=== PATIENT | male | born 1960 | race African-American/Black ===

== ENCOUNTER 2017-01-23 12:49 | Emergency (ER) | payer MEDICARE ==
[2017-01-23] MEDS ORDERED: ONDANSETRON HCL 8 MG TABLET PO ONE (13:16)
--- NOTE | 2017-01-23 13:16 | ER Document Report ---
ED Medical Screen (RME) - General Stated Complaint: WEAKNESS Notes: 56 yo male n/v x 3 days. aggrevated with food. feeling weak today. no fever. no chest pain or shortness hx/o HTN, pacer/defib, IDDM PCM - Dr Carlos. TRAVEL OUTSIDE OF THE [place] IN LAST 30 DAYS: No - Related Data Allergies/Adverse Reactions: No Known Allergies Allergy (Verified 01/23/17 13:12) Past Medical History - Past Medical History Cardiac Medical History: Reports: Hx Atrial Fibrillation, Hx Congestive Heart Failure, Hx Hypercholesterolemia, Hx Hypertension, Hx Heart Murmur Denies: Hx Coronary Artery Disease, Hx Heart Attack, Hx Peripheral Vascular Disease, Hx Pulmonary Embolism Pulmonary Medical History: Reports: Hx Pneumonia - as a child, Hx Sleep Apnea - cpap Denies: Hx Asthma, Hx Bronchitis, Hx COPD, Hx Respiratory Failure, Hx Tuberculosis Neurological Medical History: Denies: Hx Cerebrovascular Accident, Hx Seizures Endocrine Medical History: Reports: Hx Diabetes Mellitus Type 1, Hx Diabetes Mellitus Type 2. Denies: Hx Graves' Disease, Hx Hyperthyroidism, Hx Hypothyroidism Renal/ Medical History: Denies: Hx Benign Prostatic Hyperplasia, Hx End Stage Renal Disease, Hx Kidney Stones, Hx Peritoneal Dialysis Malignancy Medical History: Denies Hx Leukemia, Denies Hx Lung Cancer GI Medical History: Denies: Hx Crohn's Disease, Hx Gastroesophageal Reflux Disease, Hx Hiatal Hernia, Hx Irritable Bowel, Hx Liver Failure, Hx Ulcer Musculoskeltal Medical History: Denies Hx Arthritis, Denies Hx Fibromyalgia, Denies Hx Multiple Sclerosis, Denies Hx Muscular Dystrophy Psychiatric Medical History: Denies: Hx Bipolar Disorder, Hx Dementia, Hx Depression, Hx Post Traumatic Stress Disorder, Hx Schizophrenia Traumatic Medical History: Denies: Hx Fractures Infectious Medical History: Denies: Hx HIV Past Surgical History: Reports: Hx Appendectomy, Hx Cardiac Surgery - defibrillator/pacemaker, valve closure as child, Hx Pacemaker - defibrillator. Denies: Hx Colostomy - Immunizations Hx Diphtheria, Pertussis, Tetanus Vaccination: Yes - 2012 Physical Exam - Vital signs Vitals: Temp Pulse Resp BP Pulse Ox 98.4 F 81 18 141/79 H 94 01/23/17 12:59 01/23/17 12:59 01/23/17 12:59 01/23/17 12:59 01/23/17 12:59 Course - Vital Signs Vital signs: Temp Pulse Resp BP Pulse Ox 98.4 F 81 18 141/79 H 94 01/23/17 12:59 01/23/17 12:59 01/23/17 12:59 01/23/17 12:59 01/23/17 12:59
[2017-01-23] MEDS ORDERED: METOCLOPRAMIDE HCL INJ/PF 10 MG/2 ML SDV IV ONE (16:26)
--- NOTE | 2017-01-23 16:31 | ER Document Report ---
ED GI/ - General Chief Complaint: Nausea/Vomiting Stated Complaint: WEAKNESS Notes: The patient is a 56-year-old male, past medical history CHF, IDDM, pacemaker, presents with 3 days of nausea, vomiting and diarrhea. He is also having mid epigastric pain and suprapubic pain. He says he is vomiting about 5 times a day is having difficulty keeping any liquids down. Denies hematemesis, fevers, hematochezia, urinary symptoms, chest pain, shortness of breath or rash. TRAVEL OUTSIDE OF THE [place] IN LAST 30 DAYS: No - Related Data Allergies/Adverse Reactions: No Known Allergies Allergy (Verified 01/23/17 13:12) Past Medical History - General Information source: Patient - Social History Smoking Status: Never Smoker Chew tobacco use (# tins/day): No Frequency of alcohol use: None Drug Abuse: None Family History: Hypertension Patient has suicidal ideation: No Patient has homicidal ideation: No - Past Medical History Cardiac Medical History: Reports: Hx Atrial Fibrillation, Hx Congestive Heart Failure, Hx Hypercholesterolemia, Hx Hypertension, Hx Heart Murmur Denies: Hx Coronary Artery Disease, Hx Heart Attack, Hx Peripheral Vascular Disease, Hx Pulmonary Embolism Pulmonary Medical History: Reports: Hx Pneumonia - as a child, Hx Sleep Apnea - cpap Denies: Hx Asthma, Hx Bronchitis, Hx COPD, Hx Respiratory Failure, Hx Tuberculosis Neurological Medical History: Denies: Hx Cerebrovascular Accident, Hx Seizures Endocrine Medical History: Reports: Hx Diabetes Mellitus Type 1, Hx Diabetes Mellitus Type 2. Denies: Hx Graves' Disease, Hx Hyperthyroidism, Hx Hypothyroidism Renal/ Medical History: Denies: Hx Benign Prostatic Hyperplasia, Hx End Stage Renal Disease, Hx Kidney Stones, Hx Peritoneal Dialysis Malignancy Medical History: Denies Hx Leukemia, Denies Hx Lung Cancer GI Medical History: Denies: Hx Crohn's Disease, Hx Gastroesophageal Reflux Disease, Hx Hiatal Hernia, Hx Irritable Bowel, Hx Liver Failure, Hx Ulcer Musculoskeltal Medical History: Denies Hx Arthritis, Denies Hx Fibromyalgia, Denies Hx Multiple Sclerosis, Denies Hx Muscular Dystrophy Psychiatric Medical History: Denies: Hx Bipolar Disorder, Hx Dementia, Hx Depression, Hx Post Traumatic Stress Disorder, Hx Schizophrenia Traumatic Medical History: Denies: Hx Fractures Infectious Medical History: Denies: Hx HIV Past Surgical History: Reports: Hx Appendectomy, Hx Cardiac Surgery - defibrillator/pacemaker, valve closure as child, Hx Pacemaker - defibrillator. Denies: Hx Colostomy - Immunizations Hx Diphtheria, Pertussis, Tetanus Vaccination: Yes - 2012 Hx Pneumococcal Vaccination: 10/08/12 Review of Systems - Review of Systems Notes: REVIEW OF SYSTEMS: CONSTITUTIONAL: -fevers, -chills EENT: -eye pain, -difficulty swallowing, -nasal congestion CARDIOVASCULAR:-chest pain, -syncope. RESPIRATORY: -cough, -SOB GASTROINTESTINAL: +abdominal pain, +nausea, +vomiting, +diarrhea GENITOURINARY: -dysuria, -hematuria MUSCULOSKELETAL: -back pain, -neck pain SKIN: -rash or skin lesions. HEMATOLOGIC: -easy bruising or bleeding. LYMPHATIC: -swollen, enlarged glands. NEUROLOGICAL: -altered mental status or loss of consciousness, -headache, - neurologic symptoms PSYCHIATRIC: -anxiety, -depression. ALL OTHER SYSTEMS REVIEWED AND NEGATIVE. Physical Exam - Vital signs Vitals: Temp Pulse Resp BP Pulse Ox 98.4 F 81 18 141/79 H 94 01/23/17 12:59 01/23/17 12:59 01/23/17 12:59 01/23/17 12:59 01/23/17 12:59 - Notes Notes: PHYSICAL EXAMINATION: GENERAL: Well-appearing, well-nourished and in no acute distress. HEAD: Atraumatic, normocephalic. EYES: Pupils equal round and reactive to light, extraocular movements intact, sclera anicteric, conjunctiva are normal. ENT: nares patent, oropharynx clear without exudates. Moist mucous membranes. NECK: Normal range of motion, supple without lymphadenopathy LUNGS: Breath sounds clear to auscultation bilaterally and equal. No wheezes rales or rhonchi. HEART: Regular rate and rhythm without murmurs ABDOMEN: Soft, mild tenderness over suprapubic and epigastric area, normoactive bowel sounds. No guarding, no rebound. No masses appreciated. EXTREMITIES: Normal range of motion, no pitting or edema. No cyanosis. NEUROLOGICAL: Cranial nerves grossly intact. Normal speech, normal gait. Normal sensory, motor, and reflex exams. PSYCH: Normal mood, normal affect. SKIN: Warm, Dry, normal turgor, no rashes or lesions noted. Course - Re-evaluation Re-evalutation: Patient is no longer feeling nauseous and is tolerating fluids. Labs showed mild SHU. Repeat abdominal exam is completely nontender. Will provide patient with Zofran and instruct him to drink fluids and follow-up with his primary care physician. Given strict return precautions and he understands. - Vital Signs Vital signs: Temp Pulse Resp BP Pulse Ox 98.4 F 81 18 141/79 H 94 01/23/17 12:59 01/23/17 12:59 01/23/17 12:59 01/23/17 12:59 01/23/17 12:59 - Laboratory Result Diagrams: 01/23/17 17:43 01/23/17 17:43 Laboratory results interpreted by me: 01/23/17 01/23/17 17:43 17:43 RBC 5.86 H RDW 15.0 H Sodium 134.7 L Potassium 5.3 H Chloride 91 L Anion Gap 20 H BUN 37 H Creatinine 1.33 H Est GFR (Non-Af Amer) 56 L Glucose 276 H Total Bilirubin 3.2 H Direct Bilirubin 0.5 H AST 15 L Discharge - Discharge Clinical Impression: Nausea vomiting and diarrhea Condition: Good Disposition: HOME, SELF-CARE Additional Instructions: VOMITING: Vomiting (or nausea without vomiting) can be caused by many other different problems. It can mean that something's wrong with the stomach, such as ulcers or inflammation or the intestinal tract, such as appendicitis. But it can also be a symptom of a problem that has nothing to do with the stomach or intestines. Vomiting is common with severe headaches, earaches, tonsillitis, and kidney infections, etc. We see it with pneumonia or heart attacks. Drugs can cause nausea and vomiting. Many abdominal problems cause vomiting; for example, gallstones, kidney stones, pancreatitis, and intestinal obstruction ( blocked bowels). In most cases, curing the vomiting depends on fixing the problem that caused it. For temporary relief, we may use an anti-nausea medicine. For home use, we can prescribe suppositories, chewable pills, pills that dissolve in the mouth, or liquid anti-nausea drugs. If the vomiting seems to be caused by a problem in the stomach, acid-suppressing drugs may be prescribed as well. It's important to avoid dehydration. Sip small amounts of clear liquids ( soft drinks, tea, broth, etc) . Try to take fluids frequently even if you are vomiting to prevent dehydration. Take increasing amounts of fluid and when liquids are being consumed successfully, advance to small amounts of bland food (toast, soups, mashed potatoes, etc.) until you are able to resume a regular diet. Avoid aspirin, tobacco, and alcohol. If the vomiting worsens, if the problem that's making you vomit worsens, or if there's evidence of bleeding in the stomach (such as black, tarry stool, or bloody or black vomit), you should return immediately. Also, return if abdominal pain worsens or becomes localized to one area or you develop high fever. Call your doctor if you aren't improved in 24 hours. DIARRHEA, NON-SPECIFIC: Diarrhea means frequent, watery stools. There are many causes. Any problem that keeps the intestinal tract from absorbing water from the stool can lead to diarrhea. A sudden new diarrhea problem is usually caused by a virus, food sensitivity, toxic bacteria, or drugs. In this case, we expect the problem to go away soon. Testing is done only if you seem seriously ill from the diarrhea. If you have chronic diarrhea, or diarrhea that keeps coming back, we need to find out why. Chronic diarrhea can be due to inflammation of the bowels such as Crohn's disease or ulcerative colitis, food sensitivity such as intolerance to lactose or wheat protein, irritable bowel syndrome, and other problems. If your diarrhea is a significant problem but it's not clear why you have it, we' ll refer you to a specialist for further testing. During an episode of diarrhea, drink small amounts (two to six ounces) of clear liquids (soft drinks, sport drinks, herb teas, broth, etc). Take fluids frequently to prevent dehydration. It's usually not a problem to take mild anti- diarrhea medication such as Kaopectate or Pepto-Bismol. As the diarrhea eases, advance to small amounts of bland food (mashed potato, toast) for 24 hours. Call the physician if blood appears in your vomit or stool, if vomiting lasts longer than 24 hours, if the abdominal pain worsens or becomes localized to one area, if you develop high fever, or if you become lightheaded and weak. VIRAL SYNDROME: The physician has diagnosed a viral infection. Viruses not only cause "colds," but can cause many different symptoms including generalized aching, fever, headache, cough, diarrhea, nausea, vomiting, and fatigue. The treatment, for the most part, is simply relief of symptoms. This means that antibiotics are usually not given. Rest, fluids, pain medications and, occasionally, medication for the specific symptoms that are most bothersome will be prescribed. Use good handwashing to avoid passing the virus to others. Shared toys should be cleaned with disinfectant. Clean the toilets, sinks, and counter surfaces in bathrooms. Launder clothing in hot water. Contact the physician if you develop any new or unusual symptoms such as severe headache, stiff neck, high fever, chest pain, productive cough, or shortness of breath. You should be rechecked if you don't see marked improvement within seven to 10 days. ANTINAUSEA MEDICATION: You have been given a medication to suppress nausea and vomiting. This type of medication can be given as a shot, pill, or suppository. It will usually last for many hours. Pills and shots usually last six to eight hours. For the typical illness, only one or two doses of the medication may be necessary. Mild lightheadedness may occur. This type of medicine can cause drowsiness. Do not drive or operate dangerous machinery while under its influence. Do not mix with alcohol. See your doctor at once if you have muscle spasms or tightness, or uncontrollable motions (particularly of the neck, mouth, or jaw). Persistent vomiting or severe lightheadedness should also be evaluated by the physician. FOLLOW-UP CARE: If you have been referred to a physician for follow-up care, call the physician s office for an appointment as you were instructed or within the next two days. If you experience worsening or a significant change in your symptoms, notify the physician immediately or return to the Emergency Department at any time for re-evaluation. Prescriptions: Ondansetron [Zofran Odt 4 mg Tablet] 1 - 2 tab PO Q4H PRN #15 tab.rapdis PRN Reason: For Nausea/Vomiting
[2017-01-23 18:03] LABS: ABSOLUTE BASOPHILS # (AUTO) 0.1 10^3/uL (0.0-0.2); ABSOLUTE LYMPHOCYTES (AUTO) 1.6 10^3/uL (0.5-4.7); ABSOLUTE MONOCYTES (AUTO) 0.6 10^3/uL (0.1-1.4); ABSOLUTE NEUT (AUTO) 5.3 10^3/uL (1.7-8.2); BASOPHILS % (AUTO) 0.7 % (0-2); EOSINOPHILS % (AUTO) 0.6 % (0-6); HEMATOCRIT 49.6 % (37.9-51.0); HEMOGLOBIN 16.5 g/dL (13.5-17.0); HGB HCT DIFFERENCE -0.1; LYMPHOCYTES % (AUTO) 20.8 % (13-45); MEAN CORPUSCULAR HEMOGLOBIN 28.2 pg (27.0-33.4); MEAN CORPUSCULAR HGB CONC 33.3 g/dL (32.0-36.0); MEAN CORPUSCULAR VOLUME 85 fl (80-97); MONOCYTES % (AUTO) 8.1 % (3-13); RED BLOOD COUNT 5.86 10^6/uL (4.35-5.55); SEGMENTED NEUTROPHILS % (AUTO) 69.8 % (42-78); WHITE BLOOD COUNT 7.7 10^3/uL (4.0-10.5)
[2017-01-23 18:24] LABS: ALANINE AMINOTRANSFERASE 27 U/L (21-72); ALBUMIN 4.7 g/dL (3.5-5.0); ALKALINE PHOSPHATASE 70 U/L (38-126); ASPARTATE AMINO TRANSFERASE 15 U/L (17-59); BILIRUBIN,DIRECT 0.5 mg/dL (0.0-0.4); BILIRUBIN,TOTAL 3.2 mg/dL (0.2-1.3); BLOOD UREA NITROGEN 37 mg/dL (7-20); CALCIUM 10.2 mg/dL (8.4-10.2); CHLORIDE 91 mmol/L (98-107); CREATINE KINASE 75 U/L (55-170); CREATININE RESULT 1.33 mg/dL (0.52-1.25); GLUCOSE 276 mg/dL (75-110); LIPASE 154.7 U/L (23-300); TOTAL PROTEIN 8.2 g/dL (6.3-8.2)
[2017-01-23 18:31] LABS: CARBON DIOXIDE 24 mmol/L (22-30); POTASSIUM 5.3 mmol/L (3.6-5.0); SODIUM 134.7 mmol/L (137-145)
[2017-01-23 18:32] LABS: ANION GAP 20 (5-19)
[2017-01-23 19:00] VITALS: BP 104/72
== END 2017-01-23 19:00 | disposition home or self-care (01) ==
LOC: ER 12:49
DX: R11.2 Nausea with vomiting, unspecified (principal); R19.7 Diarrhea, unspecified; I50.9 Heart failure, unspecified; I48.91 Unspecified atrial fibrillation; E78.00 Pure hypercholesterolemia, unspecified; I11.0 Hypertensive heart disease with heart failure; E11.9 Type 2 diabetes mellitus without complications; Z79.4 Long term (current) use of insulin; Z95.810 Presence of automatic (implantable) cardiac defibrillator
CPT/HCPCS: 99283; 96374; 36415; 82550; 83690; 85025; 80053; 84484; J2765; A9270; S0119

== ENCOUNTER 2017-01-26 10:08 | Emergency (ER) | payer MEDICARE ==
--- NOTE | 2017-01-26 10:19 | ER Document Report ---
ED Medical Screen (RME) - General Stated Complaint: VOMITING BLOOD, WEAKNESS Mode of Arrival: Wheelchair Information source: Patient, Relative - Notes: Patient presents with c/o vomiting. He was evaluated and treated here on Saturday. Patient reports vomiting is worse with blood noted. Patient treated for H. pylori by his primary care. Patient also reports diarrhea. Reports heart feels like it is racing when he vomits. Hx pacemaker, CHF. Patient is actively vomiting I have greeted and performed a rapid initial assessment of this patient. A comprehensive ED assessment and evaluation of the patient, analysis of test results and completion of the medical decision making process will be conducted by additional ED providers. TRAVEL OUTSIDE OF THE [place] IN LAST 30 DAYS: No - Related Data Allergies/Adverse Reactions: No Known Allergies Allergy (Verified 01/26/17 10:20) Past Medical History - Past Medical History Cardiac Medical History: Reports: Hx Atrial Fibrillation, Hx Congestive Heart Failure, Hx Hypercholesterolemia, Hx Hypertension, Hx Heart Murmur Denies: Hx Coronary Artery Disease, Hx Heart Attack, Hx Peripheral Vascular Disease, Hx Pulmonary Embolism Pulmonary Medical History: Reports: Hx Pneumonia - as a child, Hx Sleep Apnea - cpap Denies: Hx Asthma, Hx Bronchitis, Hx COPD, Hx Respiratory Failure, Hx Tuberculosis Neurological Medical History: Denies: Hx Cerebrovascular Accident, Hx Seizures Endocrine Medical History: Reports: Hx Diabetes Mellitus Type 1, Hx Diabetes Mellitus Type 2. Denies: Hx Graves' Disease, Hx Hyperthyroidism, Hx Hypothyroidism Renal/ Medical History: Denies: Hx Benign Prostatic Hyperplasia, Hx End Stage Renal Disease, Hx Kidney Stones, Hx Peritoneal Dialysis Malignancy Medical History: Denies Hx Leukemia, Denies Hx Lung Cancer GI Medical History: Denies: Hx Crohn's Disease, Hx Gastroesophageal Reflux Disease, Hx Hiatal Hernia, Hx Irritable Bowel, Hx Liver Failure, Hx Ulcer Musculoskeltal Medical History: Denies Hx Arthritis, Denies Hx Fibromyalgia, Denies Hx Multiple Sclerosis, Denies Hx Muscular Dystrophy Psychiatric Medical History: Denies: Hx Bipolar Disorder, Hx Dementia, Hx Depression, Hx Post Traumatic Stress Disorder, Hx Schizophrenia Traumatic Medical History: Denies: Hx Fractures Infectious Medical History: Denies: Hx HIV Past Surgical History: Reports: Hx Appendectomy, Hx Cardiac Surgery - defibrillator/pacemaker, valve closure as child, Hx Pacemaker - defibrillator. Denies: Hx Colostomy - Immunizations Hx Diphtheria, Pertussis, Tetanus Vaccination: Yes - 2013 Physical Exam - Vital signs Vitals: Temp Pulse Resp BP Pulse Ox 98.7 F 93 20 120/86 H 100 01/26/17 10:15 01/26/17 10:15 01/26/17 10:15 01/26/17 10:15 01/26/17 10:15 Course - Vital Signs Vital signs: Temp Pulse Resp BP Pulse Ox 98.7 F 93 20 120/86 H 100 01/26/17 10:15 01/26/17 10:15 01/26/17 10:15 01/26/17 10:15 01/26/17 10:15
[2017-01-26] MEDS ORDERED: ONDANSETRON HCL INJ/PF 4 MG/2 ML SDV IV ONE (10:20)
[2017-01-26] MEDS ORDERED: FAMOTIDINE INJ/PF 20 MG/2 ML SDV IV ONE (11:15)
[2017-01-26 11:44] LABS: ABSOLUTE LYMPHOCYTES (AUTO) 1.6 10^3/uL (0.5-4.7); ABSOLUTE MONOCYTES (AUTO) 0.6 10^3/uL (0.1-1.4); ABSOLUTE NEUT (AUTO) 3.7 10^3/uL (1.7-8.2); BASOPHILS % (AUTO) 0.6 % (0-2); EOSINOPHILS % (AUTO) 0.5 % (0-6); HEMATOCRIT 48.3 % (37.9-51.0); HEMOGLOBIN 16.6 g/dL (13.5-17.0); HGB HCT DIFFERENCE 1.5; MEAN CORPUSCULAR HEMOGLOBIN 28.7 pg (27.0-33.4); MEAN CORPUSCULAR HGB CONC 34.3 g/dL (32.0-36.0); MEAN CORPUSCULAR VOLUME 84 fl (80-97); MONOCYTES % (AUTO) 9.4 % (3-13); RED BLOOD COUNT 5.77 10^6/uL (4.35-5.55); RED CELL DISTRIBUTION WIDTH 15.1 % (11.5-14.0); SEGMENTED NEUTROPHILS % (AUTO) 62.5 % (42-78); WHITE BLOOD COUNT 5.9 10^3/uL (4.0-10.5)
[2017-01-26 11:46] LABS: VENOUS BLOOD BASE EXCESS 4.2 mmol/L; VENOUS BLOOD HCO3 27.3 mmol/L (20-32); VENOUS BLOOD PCO2 36.5 mmHg (35-63); VENOUS BLOOD PH 7.49 (7.30-7.42)
[2017-01-26 12:06] LABS: ALANINE AMINOTRANSFERASE 19 U/L (21-72); ALBUMIN 4.4 g/dL (3.5-5.0); ALKALINE PHOSPHATASE 69 U/L (38-126); ASPARTATE AMINO TRANSFERASE 16 U/L (17-59); BILIRUBIN,DIRECT 0.6 mg/dL (0.0-0.4); BILIRUBIN,TOTAL 3.4 mg/dL (0.2-1.3); BLOOD UREA NITROGEN 33 mg/dL (7-20); CALCIUM 9.5 mg/dL (8.4-10.2); CARBON DIOXIDE 24 mmol/L (22-30); CHLORIDE 90 mmol/L (98-107); CREATININE RESULT 1.44 mg/dL (0.52-1.25); GLUCOSE 232 mg/dL (75-110); POTASSIUM 3.7 mmol/L (3.6-5.0); SODIUM 134.5 mmol/L (137-145); TOTAL PROTEIN 7.9 g/dL (6.3-8.2)
[2017-01-26 12:08] LABS: ANION GAP 21 (5-19)
[2017-01-26] MEDS ORDERED: NORMAL SALINE 1000 ML 1,000 ML IV ONE ×2 (12:33)
[2017-01-26] MEDS ORDERED: METOCLOPRAMIDE HCL INJ/PF 10 MG/2 ML SDV IV ONE (13:12)
--- NOTE | 2017-01-26 14:14 | ER Document Report ---
ED General - General Chief Complaint: Vomiting Stated Complaint: VOMITING BLOOD, WEAKNESS Mode of Arrival: Wheelchair TRAVEL OUTSIDE OF THE [place] IN LAST 30 DAYS: No - HPI Patient complains to provider of: nausea vomiting abdominal pain Notes: Patient presents for nausea vomiting epigastric abdominal pain. States ongoing for last few days. Patient was recently seen here in ER with no acute findings and discharged home. Patient states he been followed up with his primary care physician and now is currently being treated for possible H. pylori infection with amoxicillin states taken a few doses of antibiotics initially was feeling better now is feeling worse. Patient denies any fevers. Patient states testing performed was blood testing states she is currently waiting for his urease breath test. - Related Data Allergies/Adverse Reactions: No Known Allergies Allergy (Verified 01/26/17 10:20) Home Medications: Current Home Medications Dulaglutide [Trulicity] 0.75 mg SQ ASDIR PRN 01/26/17 [History] Insulin Glargine,Hum.rec.anlog [Toujeo Solostar] 30 unit SQ DAILY 01/26/17 [ History] Linagliptin [Tradjenta] 5 mg PO DAILY 01/26/17 [History] Past Medical History - General Information source: Patient, Relative - - Social History Smoking Status: Never Smoker Chew tobacco use (# tins/day): No Frequency of alcohol use: None Drug Abuse: None Family History: Hypertension - Past Medical History Cardiac Medical History: Reports: Hx Atrial Fibrillation, Hx Congestive Heart Failure, Hx Hypercholesterolemia, Hx Hypertension, Hx Heart Murmur Denies: Hx Coronary Artery Disease, Hx Heart Attack, Hx Peripheral Vascular Disease, Hx Pulmonary Embolism Pulmonary Medical History: Reports: Hx Pneumonia - as a child, Hx Sleep Apnea - cpap Denies: Hx Asthma, Hx Bronchitis, Hx COPD, Hx Respiratory Failure, Hx Tuberculosis Neurological Medical History: Denies: Hx Cerebrovascular Accident, Hx Seizures Endocrine Medical History: Reports: Hx Diabetes Mellitus Type 1, Hx Diabetes Mellitus Type 2. Denies: Hx Graves' Disease, Hx Hyperthyroidism, Hx Hypothyroidism Renal/ Medical History: Denies: Hx Benign Prostatic Hyperplasia, Hx End Stage Renal Disease, Hx Kidney Stones, Hx Peritoneal Dialysis Malignancy Medical History: Denies Hx Leukemia, Denies Hx Lung Cancer GI Medical History: Denies: Hx Crohn's Disease, Hx Gastroesophageal Reflux Disease, Hx Hiatal Hernia, Hx Irritable Bowel, Hx Liver Failure, Hx Ulcer Musculoskeltal Medical History: Denies Hx Arthritis, Denies Hx Fibromyalgia, Denies Hx Multiple Sclerosis, Denies Hx Muscular Dystrophy Psychiatric Medical History: Denies: Hx Bipolar Disorder, Hx Dementia, Hx Depression, Hx Post Traumatic Stress Disorder, Hx Schizophrenia Traumatic Medical History: Denies: Hx Fractures Infectious Medical History: Denies: Hx HIV Past Surgical History: Reports: Hx Appendectomy, Hx Cardiac Surgery - defibrillator/pacemaker, valve closure as child, Hx Pacemaker - defibrillator. Denies: Hx Colostomy - Immunizations Hx Diphtheria, Pertussis, Tetanus Vaccination: Yes - 2012 Hx Pneumococcal Vaccination: 10/08/12 Review of Systems - Review of Systems Constitutional: No symptoms reported EENT: No symptoms reported Cardiovascular: No symptoms reported Respiratory: No symptoms reported Gastrointestinal: Abdominal pain, Nausea, Vomiting Genitourinary: No symptoms reported Male Genitourinary: No symptoms reported Musculoskeletal: No symptoms reported Skin: No symptoms reported Hematologic/Lymphatic: No symptoms reported Neurological/Psychological: No symptoms reported -: Yes All other systems reviewed and negative Physical Exam - Vital signs Vitals: Temp Pulse Resp BP Pulse Ox 98.7 F 93 20 120/86 H 100 01/26/17 10:15 01/26/17 10:15 01/26/17 10:15 01/26/17 10:15 01/26/17 10:15 Interpretation: Normal - General General appearance: Appears well, Alert - HEENT Head: Normocephalic, Atraumatic Eyes: Normal Pupils: PERRL - Respiratory Respiratory status: No respiratory distress Chest status: Nontender Breath sounds: Normal Chest palpation: Normal - Cardiovascular Rhythm: Regular Heart sounds: Normal auscultation Murmur: No - Abdominal Inspection: Normal Distension: No distension Bowel sounds: Normal Tenderness: Nontender Organomegaly: No organomegaly - Back Back: Normal, Nontender - Extremities General upper extremity: Normal inspection, Nontender, Normal color, Normal ROM , Normal temperature General lower extremity: Normal inspection, Nontender, Normal color, Normal ROM , Normal temperature, Normal weight bearing. No: Genia's sign - Neurological Neuro grossly intact: Yes Cognition: Normal Orientation: AAOx4 [place] Coma Scale Eye Opening: Spontaneous Paul Coma Scale Verbal: Oriented [place] Coma Scale Motor: Obeys Commands Paul Coma Scale Total: 15 Speech: Normal Motor strength normal: LUE, RUE, LLE, RLE Sensory: Normal - Psychological Associated symptoms: Normal affect, Normal mood - Skin Skin Temperature: Warm Skin Moisture: Dry Skin Color: Normal Course - Re-evaluation Re-evalutation: 01/26/17 16:10 Because the patient is chronically elevated bilirubin and abdominal pain patient underwent a ultrasound showing gallbladder sludge no signs of acute cholecystitis. After Reglan patient's filling much better and agrees a be discharged home. Encouraged patient to continue her liquid diet for the next 12 -24 hours. The patient presents with abdominal pain without signs of peritonitis or other life-threatening or serious etiology. The patient appears stable for discharge and has been instructed to return immediately if the symptoms worsen in any way, or in 8-12hr if not improved for re-evaluation. The patient has been instructed to return if the symptoms worsen or change in any way.. - Vital Signs Vital signs: Temp Pulse Resp BP Pulse Ox 98.7 F 93 18 114/80 100 01/26/17 10:15 01/26/17 10:15 01/26/17 14:01 01/26/17 14:00 01/26/17 14:01 - Laboratory Result Diagrams: 01/26/17 11:12 01/26/17 11:12 Laboratory results interpreted by me: 01/26/17 01/26/17 01/26/17 10:58 11:12 11:12 RBC 5.77 H RDW 15.1 H VBG pH Sodium 134.5 L Chloride 90 L Anion Gap 21 H BUN 33 H Creatinine 1.44 H Est GFR (Non-Af Amer) 51 L Glucose 232 H POC Glucose 218 H Total Bilirubin 3.4 H Direct Bilirubin 0.6 H AST 16 L ALT 19 L Urine Glucose (UA) Urine Ketones Ur Leukocyte Esterase 01/26/17 01/26/17 11:12 14:01 RBC RDW VBG pH 7.49 H Sodium Chloride Anion Gap BUN Creatinine Est GFR (Non-Af Amer) Glucose POC Glucose Total Bilirubin Direct Bilirubin AST ALT Urine Glucose (UA) 150 H Urine Ketones 80 H Ur Leukocyte Esterase TRACE H Discharge - Discharge Clinical Impression: Nausea vomiting and diarrhea, Sludge in gallbladder Condition: Good Disposition: HOME, SELF-CARE Instructions: Reglan (OM), Vomiting (OM), Gallbladder Disease (OM) Additional Instructions: Your ultrasound shows sludge within your gallbladder. With your history diabetes I believe that her nausea vomiting may be coming from possible early gastroparesis or possibly due to the gallbladder sludge that we see on the ultrasound. I would highly recommend a clear liquid diet for the next 12-24 hours if you do feel like eating food however recommend foods high in starch such as crackers and toast and avoid food that has any kind of fat grease or oil including chicken soup Take medication as prescribed I would highly recommend following up with your doctor on Saturday I would hold off on taking any further amoxicillin or antibiotics Please return your stool sample to the outpatient laboratory for testing Prescriptions: Metoclopramide HCl [Reglan] 5 mg PO Q6 #30 tablet Forms: Follow-Up Laboratory Testing Referrals: GOLDEN ANDREWS MD [Primary Care Provider] - Follow up in 3-5 days
[2017-01-26 14:30] LABS: APPEARANCE,URINE SLIGHTLY-CLOUDY; BILIRUBIN,URINE NEGATIVE (NEGATIVE); GLUCOSE, URINE 150 mg/dL (NEGATIVE); KETONES,URINE 80 mg/dL (NEGATIVE); LEUKOCYTE ESTERASE,URINE TRACE (NEGATIVE); NITRITE,URINE NEGATIVE (NEGATIVE); PROTEIN,URINE NEGATIVE (NEGATIVE); URINE SPECIFIC GRAVITY 1.025; UROBILINOGEN,URINE NEGATIVE mg/dL (<2.0)
[2017-01-26 14:38] VITALS: BP 114/80
--- NOTE | 2017-01-26 22:20 | EKG REPORT ---
SEVERITY:- ABNORMAL ECG - ATRIAL-SENSED VENTRICULAR-PACED RHYTHM : Confirmed by: Nimesh Jay MD 26-Jan-2017 17:33:02
== END 2017-01-26 14:38 | disposition home or self-care (01) ==
LOC: ER 10:08
DX: R53.1 Weakness (principal); Z79.899 Other long term (current) drug therapy; R11.2 Nausea with vomiting, unspecified; R10.9 Unspecified abdominal pain
CPT/HCPCS: 93005; 99284; 36415; 82962; 83605; 83690; 85025; 80053; 81001; 82803; 76705; 93976; 93010; J2765; J2405; J7030; S0028; 87205; 87493; 89055

== ENCOUNTER 2018-03-27 07:55 | Emergency (ER) | payer MEDICARE ==
[2018-03-27] MEDS ORDERED: ONDANSETRON HCL INJ/PF 4 MG/2 ML SDV IV ONE ×2 (08:00→08:36)
[2018-03-27] MEDS ORDERED: MECLIZINE HCL 25 MG TABLET PO ONE (08:09)
[2018-03-27 08:18] LABS: ABSOLUTE BASOPHILS # (AUTO) 0.1 10^3/uL (0.0-0.2); ABSOLUTE EOSINOPHILS # (AUTO) 0.1 10^3/uL (0.0-0.6); ABSOLUTE LYMPHOCYTES (AUTO) 1.7 10^3/uL (0.5-4.7); ABSOLUTE MONOCYTES (AUTO) 0.5 10^3/uL (0.1-1.4); ABSOLUTE NEUT (AUTO) 4.5 10^3/uL (1.7-8.2); BASOPHILS % (AUTO) 0.8 % (0-2); EOSINOPHILS % (AUTO) 1.6 % (0-6); HEMATOCRIT 43.7 % (37.9-51.0); HEMOGLOBIN 14.6 g/dL (13.5-17.0); LYMPHOCYTES % (AUTO) 24.6 % (13-45); MEAN CORPUSCULAR HEMOGLOBIN 28.6 pg (27.0-33.4); MEAN CORPUSCULAR HGB CONC 33.3 g/dL (32.0-36.0); MEAN CORPUSCULAR VOLUME 86 fl (80-97); MONOCYTES % (AUTO) 7.7 % (3-13); PLATELET COUNT 217 10^3/uL (150-450); RED BLOOD COUNT 5.08 10^6/uL (4.35-5.55); RED CELL DISTRIBUTION WIDTH 14.8 % (11.5-14.0); SEGMENTED NEUTROPHILS % (AUTO) 65.3 % (42-78); TOTAL CELLS COUNTED % (AUTO) 100 %; WHITE BLOOD COUNT 6.9 10^3/uL (4.0-10.5)
[2018-03-27] MEDS ORDERED: METOCLOPRAMIDE HCL INJ/PF 10 MG/2 ML SDV IV ONE (08:36)
[2018-03-27 08:38] LABS: ALANINE AMINOTRANSFERASE 22 U/L (21-72); ALBUMIN 4.3 g/dL (3.5-5.0); ALKALINE PHOSPHATASE 84 U/L (38-126); ANION GAP 15 (5-19); ASPARTATE AMINO TRANSFERASE 14 U/L (17-59); BILIRUBIN,DIRECT 0.3 mg/dL (0.0-0.4); BILIRUBIN,TOTAL 1.3 mg/dL (0.2-1.3); BLOOD UREA NITROGEN 14 mg/dL (7-20); CALCIUM 9.1 mg/dL (8.4-10.2); CARBON DIOXIDE 29 mmol/L (22-30); CHLORIDE 101 mmol/L (98-107); CREATINE KINASE 115 U/L (55-170); SODIUM 145.1 mmol/L (137-145); TOTAL PROTEIN 7.4 g/dL (6.3-8.2)
[2018-03-27 08:46] LABS: GLUCOSE 477 mg/dL (75-110)
[2018-03-27 08:47] LABS: CREATINE KINASE MB 0.66 ng/mL (<4.55)
[2018-03-27 08:49] LABS: TROPONIN I < 0.012 ng/mL
[2018-03-27] MEDS ORDERED: INSULIN REG, HUMAN 100 UNIT/ML 3 ML VIAL (PYX) SUBCUT ONE (08:59)
--- NOTE | 2018-03-27 09:00 | ER Document Report ---
ED General - General Chief Complaint: Nausea/Vomiting/Diarrhea Stated Complaint: DIZZINESS Time Seen by Provider: 03/27/18 07:59 Mode of Arrival: Ambulatory Information source: Patient Notes: 57-year-old male history of diabetes pacemaker who has had an ear symptoms for the past few weeks presents with complaints of sudden episode of dizziness lightheadedness nausea vomiting. Patient notes over the past couple weeks now his balance has been a little off, he notes a pressure sensation in his right ear. He was seen by his primary care physician and was supposed to receive medications for this but it was never called in. Patient denies any fevers or chills notes symptoms worsen with movement of his head TRAVEL OUTSIDE OF THE [place] IN LAST 30 DAYS: No - HPI Onset: Other Onset/Duration: Sudden Quality of pain: Pressure Severity: Mild Pain Level: 1 Associated symptoms: Other Exacerbated by: Denies Relieved by: Denies Similar symptoms previously: Yes Recently seen / treated by doctor: Yes - Related Data Allergies/Adverse Reactions: No Known Allergies Allergy (Verified 01/26/17 10:20) Past Medical History - Social History Smoking Status: Never Smoker Cigarette use (# per day): No Chew tobacco use (# tins/day): No Smoking Education Provided: No Family History: Hypertension - Past Medical History Cardiac Medical History: Reports: Hx Atrial Fibrillation, Hx Congestive Heart Failure, Hx Hypercholesterolemia, Hx Hypertension, Hx Heart Murmur Denies: Hx Coronary Artery Disease, Hx Heart Attack, Hx Peripheral Vascular Disease, Hx Pulmonary Embolism Pulmonary Medical History: Reports: Hx Pneumonia - as a child, Hx Sleep Apnea - cpap Denies: Hx Asthma, Hx Bronchitis, Hx COPD, Hx Respiratory Failure, Hx Tuberculosis Neurological Medical History: Denies: Hx Cerebrovascular Accident, Hx Seizures Endocrine Medical History: Reports: Hx Diabetes Mellitus Type 1, Hx Diabetes Mellitus Type 2. Denies: Hx Graves' Disease, Hx Hyperthyroidism, Hx Hypothyroidism Renal/ Medical History: Denies: Hx Benign Prostatic Hyperplasia, Hx End Stage Renal Disease, Hx Kidney Stones, Hx Peritoneal Dialysis Malignancy Medical History: Denies Hx Leukemia, Denies Hx Lung Cancer GI Medical History: Denies: Hx Crohn's Disease, Hx Gastroesophageal Reflux Disease, Hx Hiatal Hernia, Hx Irritable Bowel, Hx Liver Failure, Hx Pancreatitis , Hx Ulcer Musculoskeltal Medical History: Denies Hx Arthritis, Denies Hx Fibromyalgia, Denies Hx Multiple Sclerosis, Denies Hx Muscular Dystrophy Psychiatric Medical History: Denies: Hx Bipolar Disorder, Hx Dementia, Hx Depression, Hx Post Traumatic Stress Disorder, Hx Schizophrenia Traumatic Medical History: Denies: Hx Fractures Infectious Medical History: Denies: Hx HIV Past Surgical History: Reports: Hx Appendectomy, Hx Cardiac Surgery - defibrillator/pacemaker, valve closure as child, Hx Pacemaker - defibrillator. Denies: Hx Colostomy - Immunizations Hx Diphtheria, Pertussis, Tetanus Vaccination: Yes - 2012 Hx Pneumococcal Vaccination: 10/08/12 Review of Systems - Review of Systems Notes: REVIEW OF SYSTEMS: CONSTITUTIONAL : Denies fever, chills, or sweats. Denies recent illness. EENT: Admits to right ear pressure CARDIOVASCULAR: Denies chest pain. Denies palpitations or racing or irregular heart beat. Denies ankle edema. RESPIRATORY: Denies cough, cold, or chest congestion. Denies shortness of breath, difficulty breathing, or wheezing. GASTROINTESTINAL: Denies abdominal pain or distention. Denies nausea, vomiting , or diarrhea. Denies blood in vomitus, stools, or per rectum. Denies black, tarry stools. Denies constipation. GENITOURINARY: Denies difficulty urinating, painful urination, burning, frequency, blood in urine, or discharge. MUSCULOSKELETAL: Denies back or neck pain or stiffness. Denies joint pain or swelling. SKIN: Denies rash, lesions or sores. HEMATOLOGIC : Denies easy bruising or bleeding. LYMPHATIC: Denies swollen, enlarged glands. NEUROLOGICAL: Admits to dizziness PSYCHIATRIC: Denies anxiety or stress. Denies depression, suicidal ideation, or homicidal ideation. ALL OTHER SYSTEMS REVIEWED AND NEGATIVE. Dictation was performed using [employer] voice recognition software PHYSICAL EXAMINATION: GENERAL: Well-appearing, well-nourished and in no acute distress. HEAD: Atraumatic, normocephalic. EYES: Pupils equal round and reactive to light, extraocular movements intact, sclera anicteric, conjunctiva are normal. ENT: Nares patent, oropharynx clear without exudates. Moist mucous membranes. Left TM is normal in appearance the right TM is bulging erythematous loss of light reflex NECK: Normal range of motion, supple without lymphadenopathy LUNGS: Breath sounds clear to auscultation bilaterally and equal. No wheezes rales or rhonchi. HEART: Regular rate and rhythm without murmurs ABDOMEN: Soft, nontender, nondistended abdomen. No guarding, no rebound. No masses appreciated. Musculoskeletal: Normal range of motion, no pitting or edema. No cyanosis. NEUROLOGICAL: Cranial nerves grossly intact. Normal speech, normal gait. Normal sensory, motor exams vertigo reproducible PSYCH: Normal mood, normal affect. SKIN: Warm, Dry, normal turgor, no rashes or lesions noted. Physical Exam - Vital signs Vitals: Resp 17 03/27/18 07:59 Course - Re-evaluation Re-evalutation: 03/27/18 09:48 Patient's blood sugars noted to be 477, this is because he has not taken his medications yet he states he normal takes at 10 AM, otherwise the vertigo symptoms appear to be related to an otitis media, the canal is well-appearing patient's symptoms have improved with Antivert, we will recheck his blood sugar but otherwise he is stable 03/27/18 16:04 Patient notes symptoms have improved significantly blood sugars now 300 After performing a Medical Screening Examination, I estimate there is LOW risk for INTRACRANIAL HEMORRHAGE, ISCHEMIC CVA, MALIGNANT DYSRHYTHMIA, ACUTE CORONARY SYNDROME, MENINGITIS, PULMONARY EMBOLISM, or SEPSIS thus I consider the discharge disposition reasonable. I have reevaluated this patient multiple times and no significant life threatening changes are noted. The patient and I have discussed the diagnosis and risks, and we agree with discharging home with close follow-up with the understanding that symptoms and presentations can change. We also discussed returning to the Emergency Department immediately if new or worsening symptoms occur. We have discussed the symptoms which are most concerning (e.g., changing or worsening pain, weakness, vomiting, fever) that necessitate immediate return. - Vital Signs Vital signs: Temp Pulse Resp BP Pulse Ox 98.3 F 19 114/86 H 100 03/27/18 10:31 03/27/18 10:31 03/27/18 10:31 03/27/18 10:31 - Laboratory Result Diagrams: 03/27/18 07:30 03/27/18 07:30 Laboratory results interpreted by me: 03/27/18 03/27/18 03/27/18 07:30 07:30 09:37 RDW 14.8 H Sodium 145.1 H Glucose 477 H* POC Glucose AST 14 L Urine Glucose (UA) >=500 H Urine Ketones 20 H 03/27/18 10:33 RDW Sodium Glucose POC Glucose 310 H AST Urine Glucose (UA) Urine Ketones Discharge - Discharge Clinical Impression: Vertigo Otitis media Qualifiers: Otitis media type: unspecified Chronicity: acute Qualified Code(s): H66.90 - Otitis media, unspecified, unspecified ear Condition: Stable Disposition: HOME, SELF-CARE Instructions: Vertigo ([facility]) Prescriptions: Amoxicillin Trihydrate [Amoxil 875 mg Tablet] 1 tab PO BID #20 tablet Meclizine HCl [Antivert 25 mg Tablet] 25 mg PO TID PRN #21 tablet PRN Reason: Referrals: GOLDEN ANDREWS MD [Primary Care Provider] - Follow up as needed
[2018-03-27] MEDS: NORMAL SALINE 1000 ML 1,000 ML IV PRN ×2 (09:02→09:03)
[2018-03-27 09:17] LABS: VENOUS BLOOD BASE EXCESS 1.1 mmol/L; VENOUS BLOOD HCO3 27.7 mmol/L (20-32); VENOUS BLOOD PCO2 51.5 mmHg (35-63); VENOUS BLOOD PH 7.35 (7.30-7.42)
[2018-03-27 10:17] LABS: APPEARANCE,URINE CLEAR; BILIRUBIN,URINE NEGATIVE (NEGATIVE); COLOR,URINE STRAW; GLUCOSE, URINE >=500 mg/dL (NEGATIVE); KETONES,URINE 20 mg/dL (NEGATIVE); LEUKOCYTE ESTERASE,URINE NEGATIVE (NEGATIVE); NITRITE,URINE NEGATIVE (NEGATIVE); PROTEIN,URINE NEGATIVE (NEGATIVE); URINE SPECIFIC GRAVITY 1.031; UROBILINOGEN,URINE NEGATIVE mg/dL (<2.0)
[2018-03-27 11:09] VITALS: BP 114/86
--- NOTE | 2018-03-27 13:43 | EKG REPORT ---
SEVERITY:- ABNORMAL ECG - ATRIAL-SENSED VENTRICULAR-PACED RHYTHM : Confirmed by: Nimesh Jay MD 27-Mar-2018 13:43:02
== END 2018-03-27 11:01 | disposition home or self-care (01) ==
LOC: ER 07:55
DX: H66.90 Otitis media, unspecified, unspecified ear (principal); R42 Dizziness and giddiness; R11.2 Nausea with vomiting, unspecified; E11.9 Type 2 diabetes mellitus without complications; I10 Essential (primary) hypertension; I48.91 Unspecified atrial fibrillation; Z95.810 Presence of automatic (implantable) cardiac defibrillator
CPT/HCPCS: 93005; 99284; 96361; 96374; 36415; 82553; 82962; 82550; 85025; 80053; 81001; 84484; 82803; 93010; A9270 ×2; J2765; J7030; J1815

== ENCOUNTER 2018-06-01 10:28 | Inpatient (IN) | payer MEDICARE, MEDICAID ==
[2018-06-01] MEDS ORDERED: NORMAL SALINE 500 ML IV ONE (11:00)
[2018-06-01] MEDS ORDERED: ONDANSETRON 4 MG TAB.RAPDIS PO ONE (11:00)
[2018-06-01 11:34] LABS: ABSOLUTE BASOPHILS # (AUTO) 0.1 10^3/uL (0.0-0.2); ABSOLUTE LYMPHOCYTES (AUTO) 1.6 10^3/uL (0.5-4.7); ABSOLUTE MONOCYTES (AUTO) 0.4 10^3/uL (0.1-1.4); BASOPHILS % (AUTO) 0.8 % (0-2); EOSINOPHILS % (AUTO) 0.3 % (0-6); HEMATOCRIT 51.3 % (37.9-51.0); HEMOGLOBIN 17.4 g/dL (13.5-17.0); LYMPHOCYTES % (AUTO) 19.4 % (13-45); MEAN CORPUSCULAR HEMOGLOBIN 29.2 pg (27.0-33.4); MEAN CORPUSCULAR VOLUME 86 fl (80-97); MONOCYTES % (AUTO) 4.4 % (3-13); PLATELET COUNT 205 10^3/uL (150-450); RED BLOOD COUNT 5.97 10^6/uL (4.35-5.55); RED CELL DISTRIBUTION WIDTH 14.3 % (11.5-14.0); SEGMENTED NEUTROPHILS % (AUTO) 75.1 % (42-78); TOTAL CELLS COUNTED % (AUTO) 100 %
--- NOTE | 2018-06-01 11:38 | ER Document Report ---
ED General - General Chief Complaint: Nausea/Vomiting Stated Complaint: VOMITING Time Seen by Provider: 06/01/18 10:59 TRAVEL OUTSIDE OF THE [place] IN LAST 30 DAYS: No - HPI Notes: Patient is a 58-year-old male with a past medical history significant for insulin-dependent diabetic, HTN, CHF, arrhythmia with pacemaker and defibrillator placement who presents to the ED complaining of abdominal cramping , nausea, vomiting, diarrhea 2-3 days. Patient states that he is starting to feel weak and has not been eating or drinking much since the onset of symptoms. Patient states he has been in DKA before and believes that this may be another episode of that. Patient states that he does have a pacemaker defibrillator in place and has noticed a flutter once today, but has no active chest pain or shortness of breath. Patient states that he is still urinating normally and having normal bowel movements. Denies any drug allergies. Denies any headache, fever, neck pain, changes in vision/speech/mentation/hearing, URI , sore throat, chest pain, syncope, cough, shortness of breath, wheeze, dyspnea , urinary retention, dysuria, hematuria, back pain, loss of control of bowel or bladder, numbness/tingling, or rash. - Related Data Allergies/Adverse Reactions: No Known Allergies Allergy (Verified 06/01/18 10:30) Past Medical History - Social History Smoking Status: Never Smoker Chew tobacco use (# tins/day): No Frequency of alcohol use: None Drug Abuse: None Family History: Hypertension Patient has suicidal ideation: No Patient has homicidal ideation: No - Past Medical History Cardiac Medical History: Reports: Hx Atrial Fibrillation, Hx Congestive Heart Failure, Hx Hypercholesterolemia, Hx Hypertension, Hx Heart Murmur Denies: Hx Coronary Artery Disease, Hx Heart Attack, Hx Peripheral Vascular Disease, Hx Pulmonary Embolism Pulmonary Medical History: Reports: Hx Pneumonia - as a child, Hx Sleep Apnea - cpap Denies: Hx Asthma, Hx Bronchitis, Hx COPD, Hx Respiratory Failure, Hx Tuberculosis Neurological Medical History: Denies: Hx Cerebrovascular Accident, Hx Seizures Endocrine Medical History: Reports: Hx Diabetes Mellitus Type 1, Hx Diabetes Mellitus Type 2. Denies: Hx Graves' Disease, Hx Hyperthyroidism, Hx Hypothyroidism Renal/ Medical History: Denies: Hx Benign Prostatic Hyperplasia, Hx End Stage Renal Disease, Hx Kidney Stones, Hx Peritoneal Dialysis Malignancy Medical History: Denies Hx Leukemia, Denies Hx Lung Cancer GI Medical History: Denies: Hx Crohn's Disease, Hx Gastroesophageal Reflux Disease, Hx Hiatal Hernia, Hx Irritable Bowel, Hx Liver Failure, Hx Pancreatitis , Hx Ulcer Musculoskeletal Medical History: Denies Hx Arthritis, Denies Hx Fibromyalgia, Denies Hx Multiple Sclerosis, Denies Hx Muscular Dystrophy Psychiatric Medical History: Denies: Hx Bipolar Disorder, Hx Dementia, Hx Depression, Hx Post Traumatic Stress Disorder, Hx Schizophrenia Traumatic Medical History: Denies: Hx Fractures Infectious Medical History: Denies: Hx HIV Past Surgical History: Reports: Hx Appendectomy, Hx Cardiac Surgery - defibrillator/pacemaker, valve closure as child, Hx Pacemaker - defibrillator. Denies: Hx Colostomy - Immunizations Hx Diphtheria, Pertussis, Tetanus Vaccination: Yes - 2012 Hx Pneumococcal Vaccination: 10/08/12 Review of Systems - Review of Systems -: Yes All other systems reviewed and negative Physical Exam - Vital signs Vitals: Temp Pulse Resp BP Pulse Ox 98.6 F 90 16 134/85 H 100 06/01/18 10:43 06/01/18 10:43 06/01/18 10:43 06/01/18 10:43 06/01/18 10:43 - Notes Notes: PHYSICAL EXAMINATION: GENERAL: No acute distress. Answers questions appropriately. Appears weak HEAD: Atraumatic, normocephalic. EYES: Pupils equal round and reactive to light, extraocular movements intact, sclera anicteric, conjunctiva are normal. ENT: Nares patent and without discharge. oropharynx clear without exudates. No tonsilar hypertrophy or erythema. Moist mucous membranes. NECK: Normal range of motion, supple without lymphadenopathy LUNGS: Breath sounds clear to auscultation bilaterally and equal. No wheezes rales or rhonchi. HEART: Regular rate and rhythm without murmurs, rubs, gallops. ABDOMEN: Soft, nondistended abdomen. No guarding, no rebound. No masses appreciated. Normal bowel sounds present. No CVA tenderness bilaterally. + mild generalized tenderness. Musculoskeletal: FROM to passive/active. Strength 5+/5. Genia neg b/l. Extremities: No cyanosis, clubbing, or edema b/l. Peripheral pulses 2+. Capillary refill less than 3 seconds. NEUROLOGICAL: Normal speech, normal gait. PSYCH: Normal mood, normal affect. SKIN: Warm, Dry, normal turgor, no rashes or lesions noted. Course - Re-evaluation Re-evalutation: 06/01/18 13:02 Patient is found with a pH of 7.3 (right on the border of low), bicarb of 18.7, and anion gap of 21 with elevated glucose in the presence of abd pain, n/v/d. + urine ketones and is currently in early DKA. Patient was given fluids and insulin will be given IV per protocol. Reviewed with Dr. Cortez and Dr. Benson who accepted pt to IMCU. - Vital Signs Vital signs: Temp Pulse Resp BP Pulse Ox 98.6 F 90 16 134/85 H 100 06/01/18 10:43 06/01/18 10:43 06/01/18 10:43 06/01/18 10:43 06/01/18 10:43 - Laboratory Result Diagrams: 06/01/18 11:15 06/01/18 11:15 Laboratory results interpreted by me: 06/01/18 06/01/18 06/01/18 11:15 11:15 11:37 RBC 5.97 H Hgb 17.4 H Hct 51.3 H RDW 14.3 H VBG HCO3 18.7 L Potassium 5.1 H Chloride 95 L Anion Gap 21 H BUN 33 H Creatinine 1.31 H Est GFR (Non-Af Amer) 57 L Glucose 361 H Total Bilirubin 2.7 H Direct Bilirubin 0.5 H AST 13 L Creatine Kinase 53 L Total Protein 8.4 H Urine Glucose (UA) Urine Ketones 06/01/18 11:37 RBC Hgb Hct RDW VBG HCO3 Potassium Chloride Anion Gap BUN Creatinine Est GFR (Non-Af Amer) Glucose Total Bilirubin Direct Bilirubin AST Creatine Kinase Total Protein Urine Glucose (UA) >=500 H Urine Ketones 80 H Discharge - Discharge Clinical Impression: DKA (diabetic ketoacidoses) Qualifiers: Diabetes mellitus type: type 1 Diabetes mellitus complication detail: without coma Qualified Code(s): E10.10 - Type 1 diabetes mellitus with ketoacidosis without coma Condition: Stable Disposition: ADMITTED INPATIENT Admitting Provider: Hospitalist - Dr. Benson Unit Admitted: [facility] Referrals: GOLDEN ANDREWS MD [Primary Care Provider] - Follow up as needed
[2018-06-01 11:41] LABS: INTERNATIONAL RATION (INR) 1.09; PROTHROMBIN TIME 14.7 SEC (11.4-15.4)
[2018-06-01 12:01] LABS: ALANINE AMINOTRANSFERASE 21 U/L (21-72); ALBUMIN 4.8 g/dL (3.5-5.0); ALKALINE PHOSPHATASE 74 U/L (38-126); ASPARTATE AMINO TRANSFERASE 13 U/L (17-59); BILIRUBIN,DIRECT 0.5 mg/dL (0.0-0.4); BILIRUBIN,TOTAL 2.7 mg/dL (0.2-1.3); BLOOD UREA NITROGEN 33 mg/dL (7-20); CALCIUM 9.6 mg/dL (8.4-10.2); CREATINE KINASE 53 U/L (55-170); GLUCOSE 361 mg/dL (75-110); POTASSIUM 5.1 mmol/L (3.6-5.0); TOTAL PROTEIN 8.4 g/dL (6.3-8.2)
[2018-06-01 12:04] LABS: VENOUS BLOOD BASE EXCESS -7.1 mmol/L; VENOUS BLOOD HCO3 18.7 mmol/L (20-32); VENOUS BLOOD PH 7.3 (7.30-7.42)
[2018-06-01 12:06] LABS: CARBON DIOXIDE 22 mmol/L (22-30); CHLORIDE 95 mmol/L (98-107); SODIUM 138.1 mmol/L (137-145)
[2018-06-01 12:11] LABS: ANION GAP 21 (5-19); CREATINE KINASE MB 0.65 ng/mL (<4.55)
[2018-06-01 12:14] LABS: TROPONIN I < 0.012 ng/mL
[2018-06-01 12:24] LABS: APPEARANCE,URINE CLEAR; BILIRUBIN,URINE NEGATIVE (NEGATIVE); COLOR,URINE YELLOW; GLUCOSE, URINE >=500 mg/dL (NEGATIVE); KETONES,URINE 80 mg/dL (NEGATIVE); LEUKOCYTE ESTERASE,URINE NEGATIVE (NEGATIVE); NITRITE,URINE NEGATIVE (NEGATIVE); PROTEIN,URINE NEGATIVE (NEGATIVE); URINE SPECIFIC GRAVITY 1.028; UROBILINOGEN,URINE NEGATIVE mg/dL (<2.0)
[2018-06-01] MEDS ORDERED: NORMAL SALINE 1000 ML 1,000 ML IV ONE ×3 (12:35→21:30)
--- NOTE | 2018-06-01 12:56 | RADIOLOGY REPORT (SQ) ---
EXAM DESCRIPTION: CHEST SINGLE VIEW COMPLETED DATE/TIME: 06/01/2018 12:34 pm REASON FOR STUDY: palpitation COMPARISON: 2015. NUMBER OF VIEWS: One view. TECHNIQUE: Single frontal radiographic view of the chest acquired. LIMITATIONS: None. FINDINGS: LUNGS AND PLEURA: No opacities, masses or pneumothorax. No pleural effusion. MEDIASTINUM AND HILAR STRUCTURES: Stable contours with chronic central vascular prominence. HEART AND VASCULAR STRUCTURES: Stable heart size. Previous CABG. BONES: No acute findings. HARDWARE: Left pacer. OTHER: No other significant finding. IMPRESSION: Stable chest. No acute cardiopulmonary disease suggested. TECHNICAL DOCUMENTATION: JOB ID: [id number] [email or web address]- All Rights Reserved Reading location - IP/workstation name: [email or web address]
[2018-06-01] MEDS ORDERED: DEXTROSE 40% GEL 15 GM TUBE PO PRN ×2 (13:00)
[2018-06-01] MEDS ORDERED: NORMAL SALINE 100 ML with INSULIN REGULAR, HUMAN 100 UNIT IV PRN ×2 (13:00)
[2018-06-01] MEDS ORDERED: GLUCAGON,HUMAN RECOMB 1 MG INJ IM PRN (13:00)
[2018-06-01] MEDS ORDERED: DEXTROSE 50%-WATER 25 GM/50 ML DISP.SYRIN IV PRN ×2 (13:00)
[2018-06-01] MEDS ORDERED: INSULIN REG, HUMAN 100 UNIT/ML 3 ML VIAL (PYX) ONE (14:00)
[2018-06-01] MEDS ORDERED: IPRATROPIUM/ALBUTEROL 0.5-2.5 MG/3 ML AMPUL NEB PRN (14:02)
[2018-06-01] MEDS ORDERED: ACETAMINOPHEN 325 MG TABLET PO PRN (14:02)
[2018-06-01] MEDS: NORMAL SALINE 1000 ML 1,000 ML IV PRN ×3 (14:32→22:48)
[2018-06-01] MEDS ORDERED: ENOXAPARIN SODIUM INJ 40 MG/0.4 ML DISP.SYRIN SUBCUT ONE (15:00)
[2018-06-01] MEDS ORDERED: PROMETHAZINE HCL INJ 25 MG/1 ML VIAL IV PRN (15:40)
[2018-06-01 15:44] LABS: BLOOD UREA NITROGEN 32 mg/dL (7-20); CALCIUM 8.6 mg/dL (8.4-10.2); GLUCOSE 253 mg/dL (75-110); POTASSIUM 4.3 mmol/L (3.6-5.0)
[2018-06-01 15:50] LABS: CARBON DIOXIDE 19 mmol/L (22-30); CHLORIDE 101 mmol/L (98-107); SODIUM 140.8 mmol/L (137-145)
[2018-06-01 15:56] LABS: ANION GAP 21 (5-19)
--- NOTE | 2018-06-01 16:35 | PDOC H&P ---
History of Present Illness Admission Date/PCP: 06/01/18 13:28 GOLDEN ANDREWS Patient complains of: This gentleman presents to the emergency room with complaints of abdominal pain nausea and vomiting as well as diarrhea for the last 2-3 days History of Present Illness: JOSEFA MCKEON is a 58 year old male This gentleman presents to the emergency room with complaints of abdominal pain nausea and vomiting as well as diarrhea for the last 2-3 days. This is also associated with weakness. Was found to have an elevated blood sugar in the emergency room with mild acidosis. Patient is a known diabetic with history of noncompliance. He says he hates needles and it appears he is noncompliant with his insulin regimen. His blood sugar was found to be elevated at 361 with a CO2 of 22 and anion gap of 21. Patient feels better after receiving some fluids and is currently receiving insulin drip. Past Medical History Cardiac Medical History: Reports: Atrial Fibrillation, Congestive Heart Failure , Hyperlipidema, Hypertension, Heart Murmur Denies: Coronary Artery Disease, Myocardial Infarction, Peripheral Vascular Disease, Pulmonary Embolism Pulmonary Medical History: Reports: Pneumonia - as a child, Sleep Apnea - cpap Denies: Asthma, Bronchitis, Chronic Obstructive Pulmonary Disease (COPD), Respiratory Failure, Tuberculosis Neurological Medical History: Denies: Seizures Endocrine Medical History: Reports: Diabetes Mellitus Type 1, Diabetes Mellitus Type 2 Denies: Hyperthyroidism, Hypothyroidism Renal/ Medical History: Denies: End Stage Renal Disease Malignancy Medical History: Denies: Breast Cancer, Cervical Cancer, Leukemia, Lung Cancer, Ovarian Cancer GI Medical History: Denies: Crohn's Disease, Gastroesophageal Reflux Disease, Hiatal Hernia Musculoskeltal Medical History: Denies: Arthritis, Fibromyalgia Psychiatric Medical History: Denies: Bipolar Disorder, Dementia, Depression, Post Traumatic Stress Disorder Hematology: Denies: Anemia, Hemophilia, Sickle Cell Disease Infectious Medical History: Denies: HIV Past Surgical History Past Surgical History: Reports: Appendectomy, Pacemaker - defibrillator Denies: Colostomy Social History Information Source: Patient Smoking Status: Never Smoker Frequency of Alcohol Use: None Hx Recreational Drug Use: No Hx Prescription Drug Abuse: No - Advance Directive Resuscitation Status: Full Code Family History Family History: Hypertension Parental Family History Reviewed: Yes Children Family History Reviewed: Yes Sibling(s) Family History Reviewed.: Yes Medication/Allergy Home Medications: Apixaban [Eliquis 5 mg Tablet] 5 mg PO Q12 06/01/18 Atorvastatin Calcium [Lipitor 20 mg Tablet] 20 mg PO QHS 06/01/18 Carvedilol [Coreg 12.5 mg Tablet] 12.5 mg PO BID 06/01/18 Dofetilide [Tikosyn 500 Mcg Capsule] 500 mcg PO Q12 06/01/18 Dulaglutide [Trulicity] 1.5 mg SQ WE 06/01/18 Furosemide [Lasix 40 mg Tablet] 40 mg PO BID 06/01/18 Insulin Glargine,Hum.rec.anlog [Toujeo Solostar] 25 units SQ DAILY 06/01/18 Linagliptin [Tradjenta] 5 mg PO DAILY 06/01/18 Lisinopril [Zestril] 10 mg PO DAILY 06/01/18 Metformin HCl [Glucophage] 1,000 mg PO BID 06/01/18 Allergies/Adverse Reactions: No Known Allergies Allergy (Verified 06/01/18 10:30) Review of Systems All systems: reviewed and no additional remarkable complaints except as stated Physical Exam Vital Signs: Temp Pulse Resp BP Pulse Ox 98.6 F 90 20 129/74 H 98 06/01/18 10:43 06/01/18 10:43 06/01/18 14:01 06/01/18 14:01 06/01/18 14:01 General appearance: PRESENT: no acute distress, well-developed, well-nourished Head exam: PRESENT: atraumatic, normocephalic Eye exam: PRESENT: conjunctiva pink, EOMI, PERRLA. ABSENT: scleral icterus Ear exam: PRESENT: normal external ear exam Mouth exam: PRESENT: dry mucosa, tongue midline Neck exam: ABSENT: carotid bruit, JVD, lymphadenopathy, thyromegaly Respiratory exam: PRESENT: clear to auscultation asiya. ABSENT: rales, rhonchi, wheezes Cardiovascular exam: PRESENT: RRR. ABSENT: diastolic murmur, rubs, systolic murmur Pulses: PRESENT: normal dorsalis pedis pul Vascular exam: PRESENT: normal capillary refill GI/Abdominal exam: PRESENT: normal bowel sounds, soft. ABSENT: distended, guarding, mass, organolmegaly, rebound, tenderness Rectal exam: PRESENT: deferred Extremities exam: PRESENT: full ROM. ABSENT: calf tenderness, clubbing, pedal edema Neurological exam: PRESENT: alert, awake, oriented to person, oriented to place , oriented to time, oriented to situation, CN II-XII grossly intact. ABSENT: motor sensory deficit Psychiatric exam: PRESENT: appropriate affect, normal mood. ABSENT: homicidal ideation, suicidal ideation Skin exam: PRESENT: dry, intact, warm. ABSENT: cyanosis, rash Results Laboratory Results: 06/01/18 11:15 06/01/18 15:09 MCV 86 fl (80-97) 06/01/18 11:15 MCH 29.2 pg (27.0-33.4) 06/01/18 11:15 MCHC 34.0 g/dL (32.0-36.0) 06/01/18 11:15 RDW 14.3 % (11.5-14.0) H 06/01/18 11:15 Seg Neutrophils % 75.1 % (42-78) 06/01/18 11:15 Lymphocytes % 19.4 % (13-45) 06/01/18 11:15 Monocytes % 4.4 % (3-13) 06/01/18 11:15 Eosinophils % 0.3 % (0-6) 06/01/18 11:15 Basophils % 0.8 % (0-2) 06/01/18 11:15 Absolute Neutrophils 6.0 10^3/uL (1.7-8.2) 06/01/18 11:15 Absolute Lymphocytes 1.6 10^3/uL (0.5-4.7) 06/01/18 11:15 Absolute Monocytes 0.4 10^3/uL (0.1-1.4) 06/01/18 11:15 Absolute Eosinophils 0.0 10^3/uL (0.0-0.6) 06/01/18 11:15 Absolute Basophils 0.1 10^3/uL (0.0-0.2) 06/01/18 11:15 VBG pH 7.30 (7.30-7.42) 06/01/18 11:37 VBG pCO2 39.0 mmHg (35-63) 06/01/18 11:37 VBG HCO3 18.7 mmol/L (20-32) L 06/01/18 11:37 VBG Base Excess -7.1 mmol/L 06/01/18 11:37 Chloride 101 mmol/L (98-107) 06/01/18 15:09 Carbon Dioxide 19 mmol/L (22-30) L 06/01/18 15:09 Anion Gap 21 (5-19) H 06/01/18 15:09 Est GFR ( Amer) > 60 (>60) 06/01/18 15:09 Est GFR (Non-Af Amer) > 60 (>60) 06/01/18 15:09 Glucose 253 mg/dL (75-110) H 06/01/18 15:09 Calcium 8.6 mg/dL (8.4-10.2) 06/01/18 15:09 Total Bilirubin 2.7 mg/dL (0.2-1.3) H 06/01/18 11:15 AST 13 U/L (17-59) L 06/01/18 11:15 ALT 21 U/L (21-72) 06/01/18 11:15 Alkaline Phosphatase 74 U/L (38-126) 06/01/18 11:15 Total Protein 8.4 g/dL (6.3-8.2) H 06/01/18 11:15 Albumin 4.8 g/dL (3.5-5.0) 06/01/18 11:15 Lipase 69.7 U/L (23-300) 06/01/18 11:15 Urine Color YELLOW 06/01/18 11:37 Urine Appearance CLEAR 06/01/18 11:37 Urine pH 5.0 (5.0-9.0) 06/01/18 11:37 Ur Specific [place] 1.028 06/01/18 11:37 Urine Protein NEGATIVE mg/dL (NEGATIVE) 06/01/18 11:37 Urine Glucose (UA) >=500 mg/dL (NEGATIVE) H 06/01/18 11:37 Urine Ketones 80 mg/dL (NEGATIVE) H 06/01/18 11:37 Urine Blood NEGATIVE (NEGATIVE) 06/01/18 11:37 Urine Nitrite NEGATIVE (NEGATIVE) 06/01/18 11:37 Ur Leukocyte Esterase NEGATIVE (NEGATIVE) 06/01/18 11:37 Urine WBC (Auto) 3 /HPF 06/01/18 11:37 Urine RBC (Auto) 1 /HPF 06/01/18 11:37 06/01/18 06/01/18 11:15 11:15 Creatine Kinase 53 L CK-MB (CK-2) 0.65 Troponin I < 0.012 Impressions: Chest X-Ray 06/01/18 11:32 IMPRESSION: Stable chest. No acute cardiopulmonary disease suggested. Assessment & Plan - Diagnosis (1) DKA (diabetic ketoacidoses) Qualifiers: Diabetes mellitus type: type 1 Diabetes mellitus complication detail: without coma Qualified Code(s): E10.10 - Type 1 diabetes mellitus with ketoacidosis without coma Plan: Secondary to non compliance. Will continue IVF, IV insulin and monitor BMP (2) Cardiomyopathy Is this a current diagnosis for this admission?: Yes Plan: Precise details unknown. It appears patient receives his cardiology care from an outside institution. He has no echo on file. He does have an AICD (3) Dehydration Is this a current diagnosis for this admission?: Yes Plan: Secondary to hyperglycemia. Will continue cautious IV fluid due to his history of cardiomyopathy (4) Acute kidney injury Is this a current diagnosis for this admission?: Yes Plan: Secondary to intravascular volume depletion. I expect this to correct with the volume repletion (5) Hyperkalemia Is this a current diagnosis for this admission?: Yes Plan: Secondary to insulin deficiency. Will monitor and treat as needed - Time Time Spent: 50 to 70 Minutes Medications reviewed and adjusted accordingly: Yes Anticipated discharge: Home Within: within 48 hours - Inpatient Certification Based on my medical assessment, after consideration of the patient's comorbidities, presenting symptoms, or acuity I expect that the services needed warrant INPATIENT care.: Yes Medical Necessity: Need Close Monitoring Due to Risk of Patient Decompensation, Need For IV Fluids, Risk of Complication if Not Cared For in Hospital
[2018-06-01] MEDS: CARVEDILOL 12.5 MG TABLET PO SCH (17:55)
[2018-06-01] MEDS: FUROSEMIDE 40 MG TABLET PO SCH (17:56)
--- NOTE | 2018-06-01 18:31 | EKG REPORT ---
SEVERITY:- ABNORMAL ECG - ATRIAL-SENSED VENTRICULAR-PACED RHYTHM : Confirmed by: Jessica Lechuga MD 01-Jun-2018 18:30:40
[2018-06-01] MEDS ORDERED: DOFETILIDE 500 MCG CAPSULE PO ONE (19:15)
[2018-06-01 20:59] LABS: ANION GAP 14 (5-19); BLOOD UREA NITROGEN 28 mg/dL (7-20); CALCIUM 8.3 mg/dL (8.4-10.2); CARBON DIOXIDE 21 mmol/L (22-30); CHLORIDE 108 mmol/L (98-107); GLUCOSE 64 mg/dL (75-110); SODIUM 142.6 mmol/L (137-145)
[2018-06-01 21:07] LABS: POTASSIUM 3.3 mmol/L (3.6-5.0)
[2018-06-01] MEDS: FAMOTIDINE 20 MG TABLET PO SCH (21:39)
[2018-06-01] MEDS: ATORVASTATIN CALCIUM 20 MG TABLET PO SCH (21:39)
[2018-06-01] MEDS: DOFETILIDE 500 MCG CAPSULE PO SCH (21:44)
[2018-06-01] MEDS ORDERED: POTASSIUM CHLORIDE 10 MEQ CAPSULE.ER PO ONE (22:00)
[2018-06-02 00:17] LABS: ANION GAP 12 (5-19); BLOOD UREA NITROGEN 25 mg/dL (7-20); CALCIUM 7.6 mg/dL (8.4-10.2); CARBON DIOXIDE 18 mmol/L (22-30); CHLORIDE 107 mmol/L (98-107); GLUCOSE 185 mg/dL (75-110); POTASSIUM 4.2 mmol/L (3.6-5.0); SODIUM 136.8 mmol/L (137-145)
[2018-06-02] MEDS ORDERED: NORMAL SALINE 1000 ML 1,000 ML IV PRN (00:25)
[2018-06-02] MEDS ORDERED: DEXTROSE 50%-WATER SYRINGE 12.5 GM/25 ML DOSE IV PRN ×2 (00:35→18:01)
[2018-06-02] MEDS ORDERED: INSULIN, REGULAR 100 UNIT/100 ML NORMAL SALINE IV PRN ×2 (00:35)
[2018-06-02] MEDS ORDERED: DEXTROSE 40% GEL 15 GM TUBE X 2 PO PRN ×2 (00:35→18:01)
[2018-06-02] MEDS ORDERED: DEXTROSE 40% GEL 15 GM TUBE PO PRN ×2 (00:35→18:01)
[2018-06-02] MEDS ORDERED: GLUCAGON,HUMAN RECOMB 1 MG INJ IM PRN ×2 (00:35→18:01)
[2018-06-02] MEDS ORDERED: DEXTROSE 50%-WATER SYRINGE 25 GM/50 ML DOSE IV PRN ×2 (00:35→18:01)
[2018-06-02] MEDS ORDERED: NORMAL SALINE 1000 ML 1,000 ML IV ONE (00:45)
[2018-06-02] MEDS: NORMAL SALINE 1000 ML 1,000 ML IV PRN ×4 (04:02→17:04)
[2018-06-02 05:06] LABS: ABSOLUTE BASOPHILS # (AUTO) 0.1 10^3/uL (0.0-0.2); ABSOLUTE MONOCYTES (AUTO) 0.7 10^3/uL (0.1-1.4); ABSOLUTE NEUT (AUTO) 5.2 10^3/uL (1.7-8.2); EOSINOPHILS % (AUTO) 0.3 % (0-6); LYMPHOCYTES % (AUTO) 25.3 % (13-45); MEAN CORPUSCULAR HGB CONC 34.4 g/dL (32.0-36.0); MEAN CORPUSCULAR VOLUME 84 fl (80-97); MONOCYTES % (AUTO) 8.3 % (3-13); PLATELET COUNT 158 10^3/uL (150-450); RED BLOOD COUNT 4.86 10^6/uL (4.35-5.55); RED CELL DISTRIBUTION WIDTH 14.5 % (11.5-14.0); SEGMENTED NEUTROPHILS % (AUTO) 65.1 % (42-78); TOTAL CELLS COUNTED % (AUTO) 100 %
[2018-06-02] MEDS: CARVEDILOL 12.5 MG TABLET PO SCH ×2 (05:07→17:04)
[2018-06-02 05:12] LABS: ANION GAP 11 (5-19); BLOOD UREA NITROGEN 20 mg/dL (7-20); CALCIUM 7.5 mg/dL (8.4-10.2); CARBON DIOXIDE 20 mmol/L (22-30); CHLORIDE 111 mmol/L (98-107); GLUCOSE 105 mg/dL (75-110); POTASSIUM 3.6 mmol/L (3.6-5.0); SODIUM 141.6 mmol/L (137-145)
[2018-06-02] MEDS: APIXABAN 5 MG TABLET PO SCH ×3 (05:16→21:48)
[2018-06-02 05:23] LABS: HEMOGLOBIN 14.1 g/dL (13.5-17.0)
[2018-06-02] MEDS: FUROSEMIDE 40 MG TABLET PO SCH ×2 (09:12→17:04)
[2018-06-02] MEDS: FAMOTIDINE 20 MG TABLET PO SCH ×2 (09:13→21:48)
[2018-06-02] MEDS: DOFETILIDE 500 MCG CAPSULE PO SCH ×2 (09:13→21:48)
[2018-06-02] MEDS ORDERED: ENOXAPARIN SODIUM INJ 40 MG/0.4 ML DISP.SYRIN SUBCUT SCH (10:00)
--- NOTE | 2018-06-02 14:58 | PDOC PROGRESS REPORT ---
Subjective Progress Note for:: 06/02/18 Subjective:: Patient was admitted with diabetic ketoacidosis. He had been on insulin drip but this has since resolved and he has been started on subcu insulin. Unfortunately patient seems to have a real fear of needles and has been noncompliant with his injections due to these. He has not tried any counseling nor has he ever been seen by an network contractor by his own account or been considered for an insulin pump. I have encouraged patient to request a referral to an network contractor preferably at a tertiary center so that all the options can be explored due to his renal phobia for needles Reason For Visit: DIABETIC KETOACIDOSIS Physical Exam Vital Signs: Temp Pulse Resp BP Pulse Ox 97.7 F 78 16 128/78 H 98 06/02/18 12:25 06/02/18 14:24 06/02/18 14:24 06/02/18 12:25 06/02/18 14:24 Intake & Output 06/01/18 06/02/18 06/03/18 06:59 06:59 06:59 Intake Total 7917 1359 Output Total 400 Balance 7517 1359 Weight 85.8 kg General appearance: PRESENT: no acute distress, well-developed, well-nourished Head exam: PRESENT: atraumatic, normocephalic Eye exam: PRESENT: conjunctiva pink, EOMI, PERRLA. ABSENT: scleral icterus Ear exam: PRESENT: normal external ear exam Mouth exam: PRESENT: moist, tongue midline Neck exam: ABSENT: carotid bruit, JVD, lymphadenopathy, thyromegaly Respiratory exam: PRESENT: clear to auscultation asiya. ABSENT: rales, rhonchi, wheezes Cardiovascular exam: PRESENT: RRR. ABSENT: diastolic murmur, rubs, systolic murmur Pulses: PRESENT: normal dorsalis pedis pul Vascular exam: PRESENT: normal capillary refill GI/Abdominal exam: PRESENT: normal bowel sounds, soft. ABSENT: distended, guarding, mass, organolmegaly, rebound, tenderness Rectal exam: PRESENT: deferred Extremities exam: PRESENT: full ROM. ABSENT: calf tenderness, clubbing, pedal edema Neurological exam: PRESENT: alert, awake, oriented to person, oriented to place , oriented to time, oriented to situation, CN II-XII grossly intact. ABSENT: motor sensory deficit Psychiatric exam: PRESENT: appropriate affect, normal mood. ABSENT: homicidal ideation, suicidal ideation Skin exam: PRESENT: dry, intact, warm, other - Permanent pacemaker on the left chest. ABSENT: cyanosis, rash Results Laboratory Results: 06/02/18 04:36 06/02/18 04:36 06/01/18 06/01/18 06/01/18 15:09 20:20 23:42 WBC RBC Hgb Hct MCV MCH MCHC RDW Plt Count Seg Neutrophils % Lymphocytes % Monocytes % Eosinophils % Basophils % Absolute Neutrophils Absolute Lymphocytes Absolute Monocytes Absolute Eosinophils Absolute Basophils Sodium 140.8 142.6 136.8 L Potassium 4.3 3.3 L D 4.2 Chloride 101 108 H 107 Carbon Dioxide 19 L 21 L 18 L Anion Gap 21 H 14 12 BUN 32 H 28 H 25 H Creatinine 1.08 0.98 0.87 Est GFR ( Amer) > 60 > 60 > 60 Est GFR (Non-Af Amer) > 60 > 60 > 60 Glucose 253 H 64 L 185 H Calcium 8.6 8.3 L 7.6 L 06/02/18 06/02/18 04:36 04:36 WBC 8.0 RBC 4.86 Hgb 14.1 D Hct 41.0 MCV 84 MCH 29.0 MCHC 34.4 RDW 14.5 H Plt Count 158 Seg Neutrophils % 65.1 Lymphocytes % 25.3 Monocytes % 8.3 Eosinophils % 0.3 Basophils % 1.0 Absolute Neutrophils 5.2 Absolute Lymphocytes 2.0 Absolute Monocytes 0.7 Absolute Eosinophils 0.0 Absolute Basophils 0.1 Sodium 141.6 Potassium 3.6 Chloride 111 H Carbon Dioxide 20 L Anion Gap 11 BUN 20 Creatinine 0.83 Est GFR ( Amer) > 60 Est GFR (Non-Af Amer) > 60 Glucose 105 Calcium 7.5 L 06/02/18 04:36 NT-Pro-B Natriuret Pep 132 Impressions: Chest X-Ray 06/01/18 11:32 IMPRESSION: Stable chest. No acute cardiopulmonary disease suggested. Assessment & Plan - Diagnosis (1) DKA (diabetic ketoacidoses) Qualifiers: Diabetes mellitus type: type 1 Diabetes mellitus complication detail: without coma Qualified Code(s): E10.10 - Type 1 diabetes mellitus with ketoacidosis without coma Is this a current diagnosis for this admission?: Yes Plan: Resolved (2) Cardiomyopathy Is this a current diagnosis for this admission?: Yes (3) Dehydration Is this a current diagnosis for this admission?: Yes (4) Acute kidney injury Is this a current diagnosis for this admission?: Yes (5) Hyperkalemia Is this a current diagnosis for this admission?: Yes Plan: Resolved - Time Time Spent with patient: 15-24 minutes Medications reviewed and adjusted accordingly: Yes Anticipated discharge: Home Within: within 48 hours - Inpatient Certification Based on my medical assessment, after consideration of the patient's comorbidities, presenting symptoms, or acuity I expect that the services needed warrant INPATIENT care.: Yes Medical Necessity: Other - Plan Summary Plan Summary: Patient is being transferred to Dr. Carlos's service
[2018-06-02] MEDS ORDERED: INSULIN GLARGINE,HUM.REC.ANLOG 1,000 UNIT/10 ML UNIT SUBCUT SCH (15:00)
[2018-06-02] MEDS: INSULIN GLARGINE,HUM.REC.ANLOG 300 UNIT/3 ML INSULN.PEN SUBCUT SCH (16:53)
[2018-06-02] MEDS: ATORVASTATIN CALCIUM 20 MG TABLET PO SCH (21:48)
[2018-06-02] MEDS: INSULIN LISPRO 100 UNIT/ML 3 ML VIAL SUBCUT PRN (21:53)
[2018-06-03] MEDS: NORMAL SALINE 1000 ML 1,000 ML IV PRN (01:16)
[2018-06-03] MEDS: CARVEDILOL 12.5 MG TABLET PO SCH (06:07)
--- NOTE | 2018-06-03 08:45 | PDOC PROGRESS REPORT ---
Subjective Progress Note for:: 06/03/18 Subjective:: Patient expressed significant phobia of needle and difficulty with self management of his diabetes mellitus. He expressed trauma as a child undergoing two open heart surgeries and incidents with nursing care with regard to accu- check monitoring and insulin administration. He claimed intermittent episodes where he froze in the process of checking his blood glucose or self administration of insulin. He claimed satisfactory blood glucose control when he is compliant with his prescribed medications. He denied chest pain or difficulty with breathing. No reported fever or chills. No nausea or vomiting. There is improvement inhis blood glucose control on current IV fluid support and insulin therapy. Reason For Visit: DIABETIC KETOACIDOSIS Physical Exam Vital Signs: Temp Pulse Resp BP Pulse Ox 98.5 F 76 16 135/88 H 99 06/03/18 03:04 06/03/18 07:00 06/03/18 03:04 06/03/18 03:04 06/03/18 03:04 Intake & Output 06/02/18 06/03/18 06/04/18 06:59 06:59 06:59 Intake Total 7917 5654 Output Total 400 1700 Balance 7517 3954 Weight 85.8 kg General appearance: PRESENT: no acute distress, obese, well-developed, well- nourished Head exam: PRESENT: atraumatic, normocephalic Eye exam: PRESENT: conjunctiva pink, EOMI, PERRLA. ABSENT: scleral icterus Ear exam: PRESENT: normal external ear exam Mouth exam: PRESENT: moist Respiratory exam: PRESENT: clear to auscultation asiya Cardiovascular exam: PRESENT: RRR. ABSENT: diastolic murmur, rubs, systolic murmur GI/Abdominal exam: PRESENT: normal bowel sounds, soft. ABSENT: distended, guarding, mass, organolmegaly, rebound, tenderness Extremities exam: ABSENT: pedal edema Musculoskeletal exam: PRESENT: normal inspection Neurological exam: PRESENT: alert, awake, oriented to person, oriented to place , oriented to time, oriented to situation, CN II-XII grossly intact. ABSENT: motor sensory deficit Skin exam: PRESENT: dry, intact, warm. ABSENT: cyanosis, rash Results Laboratory Results: 06/02/18 04:36 06/02/18 04:36 06/02/18 04:36 NT-Pro-B Natriuret Pep 132 Impressions: Chest X-Ray 06/01/18 11:32 IMPRESSION: Stable chest. No acute cardiopulmonary disease suggested. Assessment & Plan - Diagnosis (1) Type 2 diabetes mellitus, uncontrolled Qualifiers: Diabetes mellitus program consultant insulin use: with group home use Diabetes mellitus complication status: with hyperosmolarity Diabetes mellitus complication detail: without coma Qualified Code(s): E11.00 - Type 2 diabetes mellitus with hyperosmolarity without nonketotic hyperglycemic-hyperosmolar coma ([facility]); Z79.4 - service delivery management consultant (current) use of insulin; Z79.4 - service delivery management consultant ( current) use of insulin; Z79.4 - service delivery management consultant (current) use of insulin; Z79.4 - [facility]DC (current) use of insulin Is this a current diagnosis for this admission?: Yes Plan: Continue current medication management. I discussed at length with patient issue of medication management and compliance. He is agreeable to floor worker well service referral upon follow up in the office. (2) Needle phobia Is this a current diagnosis for this admission?: Yes Plan: I discussed possible benefit from psychotherapy or hypnosis for his needle phobia due to life threatening complication from uncontrolled diabetes mellitus. We will continue to pursue possible treatment on outpatient setting upon discharge. (3) Noncompliance with diabetes treatment Is this a current diagnosis for this admission?: Yes Plan: This may be related to his needle phobia but he does not follow up on his care management as well. - Time Time Spent with patient: 25-34 minutes Medications reviewed and adjusted accordingly: Yes Anticipated discharge: Home Within: Other - Inpatient Certification Based on my medical assessment, after consideration of the patient's comorbidities, presenting symptoms, or acuity I expect that the services needed warrant INPATIENT care.: Yes I certify that my determination is in accordance with my understanding of Medicare's requirements for reasonable and necessary INPATIENT services [42 CFR 412.3e].: Yes Medical Necessity: Need Close Monitoring Due to Risk of Patient Decompensation, Need For IV Fluids, Need For Continuous Telemetry Monitoring, Risk of Complication if Not Cared For in Hospital Post Hospital Care: D/C Office Secretary Documentation - Plan Summary Plan Summary: Continue current medication management. Coordinate with technical planner regarding referral follow up before discharge. Patient has high propensity for readmission in view of his noncompliance and needle phobia issue.
[2018-06-03] MEDS: INSULIN GLARGINE,HUM.REC.ANLOG 300 UNIT/3 ML INSULN.PEN SUBCUT SCH (10:28)
[2018-06-03] MEDS: APIXABAN 5 MG TABLET PO SCH (10:28)
[2018-06-03] MEDS: FAMOTIDINE 20 MG TABLET PO SCH (10:28)
[2018-06-03] MEDS: DOFETILIDE 500 MCG CAPSULE PO SCH (10:28)
[2018-06-03] MEDS: FUROSEMIDE 40 MG TABLET PO SCH (10:28)
[2018-06-03] MEDS: INSULIN LISPRO 100 UNIT/ML 3 ML VIAL SUBCUT PRN (12:03)
[2018-06-03 14:00] VITALS: BP 124/76
--- NOTE | 2018-06-03 14:46 | PDOC DISCHARGE SUMMARY ---
General - Admit/Disc Date/PCP Admission Date/Primary Care Provider: 06/01/18 13:28 GOLDEN DARRYL Discharge Date: 06/03/18 - Discharge Diagnosis (1) DKA (diabetic ketoacidoses) Is this a current diagnosis for this admission?: Yes Summary: The patient was initially on an insulin drip. His anion gap closed and he was transitioned back to his home regimen. His DKA was due to the fact that he has a severe fear of needles and had not been compliant with his insulin regimen. (2) Chronic combined systolic and diastolic congestive heart failure Is this a current diagnosis for this admission?: Yes Summary: No evidence of exacerbation. (3) Cardiomyopathy Is this a current diagnosis for this admission?: Yes Summary: He has known cardiomyopathy and congenital heart disease. He had heart surgeries as a small child. (4) Acute kidney injury Is this a current diagnosis for this admission?: Yes Summary: Resolved (5) Elevated LFTs Is this a current diagnosis for this admission?: Yes Summary: Improving (6) Hyperkalemia Is this a current diagnosis for this admission?: Yes Summary: Resolved. Likely secondary to dehydration (7) Hypokalemia Is this a current diagnosis for this admission?: Yes Summary: Repleted and resolved (8) Hyponatremia Is this a current diagnosis for this admission?: Yes Summary: Resolved (9) Dehydration Is this a current diagnosis for this admission?: Yes Summary: Secondary to severe hyperglycemia (10) Fear of hypodermic needles Is this a current diagnosis for this admission?: Yes Summary: This is a real problem for the patient. He is wanting to see an grill associate to discuss some of the newer options and ways to treat his diabetes. He states that if he cannot bring himself to give himself an injection he will get someone to do it for him. (11) Full code status Is this a current diagnosis for this admission?: Yes - Additional Information Resuscitation Status: Full Code Discharge Diet: Cardiac, Diabetic Home Medications: Apixaban [Eliquis 5 mg Tablet] 5 mg PO Q12 06/01/18 Atorvastatin Calcium [Lipitor 20 mg Tablet] 20 mg PO QHS 06/01/18 Carvedilol [Coreg 12.5 mg Tablet] 12.5 mg PO BID 06/01/18 Dofetilide [Tikosyn 500 Mcg Capsule] 500 mcg PO Q12 06/01/18 Dulaglutide [Trulicity] 1.5 mg SQ WE 06/01/18 Furosemide [Lasix 40 mg Tablet] 40 mg PO BID 06/01/18 Insulin Glargine,Hum.rec.anlog [Touadrianeo Solostar] 25 units SQ DAILY 06/01/18 Linagliptin [Tradjenta] 5 mg PO DAILY 06/01/18 Lisinopril [Zestril] 10 mg PO DAILY 06/01/18 Metformin HCl [Glucophage] 1,000 mg PO BID 06/01/18 History of Present Illness History of Present Illness: JOSEFA MCKEON is a 58 year old male who presented to the emergency room with nausea vomiting and severe hyperglycemia Hospital Course Hospital Course: The patient is an extremely pleasant 58-year-old -[place] male who presented to the emergency room with complaints of abdominal pain, nausea vomiting and diarrhea. He was found to have significantly elevated blood sugar and mild acidosis. The patient is a known diabetic with a history of noncompliance due to his severe fear of needles. The patient was admitted to the hospital and started on an insulin drip and IV fluids. His anion gap quickly closed and he was transitioned back to his usual home regimen. He had electrolyte abnormalities and a mild acute kidney injury at the time of admission which is since resolved. At this point he is back to his baseline. He states he knows he needs to make some changes and needs to be more compliant as this is adversely affecting his health. He would like for his primary care provider to refer him to an grill associate to discuss some of the newer options out there to treat diabetes. He states that if he cannot bring himself to give himself an insulin injection that he will get someone to do up for him. We are making him an appointment to follow-up with his primary care physician. At this point maximum hospital benefit has been reached. The patient will be discharged home today in stable condition. Physical Exam Vital Signs: Temp Pulse Resp BP Pulse Ox 97.8 F 76 20 124/76 97 06/03/18 13:59 06/03/18 13:59 06/03/18 13:59 06/03/18 13:59 06/03/18 13:59 Intake & Output 06/02/18 06/03/18 06/04/18 06:59 06:59 06:59 Intake Total 7917 5654 Output Total 400 1700 Balance 7517 3954 Weight 85.8 kg General appearance: PRESENT: no acute distress, well-developed, well-nourished Head exam: PRESENT: atraumatic, normocephalic Mouth exam: PRESENT: moist, tongue midline Neck exam: ABSENT: carotid bruit, JVD, lymphadenopathy, thyromegaly Respiratory exam: PRESENT: clear to auscultation asiya. ABSENT: rales, rhonchi, wheezes Cardiovascular exam: PRESENT: RRR. ABSENT: diastolic murmur, rubs, systolic murmur GI/Abdominal exam: PRESENT: normal bowel sounds, soft. ABSENT: distended, guarding, mass, organolmegaly, rebound, tenderness Extremities exam: PRESENT: full ROM. ABSENT: calf tenderness, clubbing, pedal edema Musculoskeletal exam: PRESENT: ambulatory Neurological exam: PRESENT: alert, awake, oriented to person, oriented to place , oriented to time, oriented to situation, CN II-XII grossly intact. ABSENT: motor sensory deficit Psychiatric exam: PRESENT: appropriate affect, normal mood. ABSENT: homicidal ideation, suicidal ideation Skin exam: PRESENT: dry, intact, warm. ABSENT: cyanosis, rash Results Laboratory Results: 06/02/18 04:36 06/02/18 04:36 06/02/18 04:36 NT-Pro-B Natriuret Pep 132 Impressions: Chest X-Ray 06/01/18 11:32 IMPRESSION: Stable chest. No acute cardiopulmonary disease suggested. Qualifiers - * PATIENT BEING DISCHARGED WITH ANY OF THE FOLLOWING DIAGNOSIS: No Plan Time Spent: Greater than 30 Minutes
== END 2018-06-03 14:33 | disposition home or self-care (01) | DRG 638 ==
LOC: ER 10:28 → EH 13:28 → 3W 15:50
PROVIDERS: ADMIT Internal Medicine; ATTEND Internal Medicine Geriatric Medicine
DX: E10.10 Type 1 diabetes mellitus with ketoacidosis without coma (principal); N17.9 Acute kidney failure, unspecified; E87.1 Hypo-osmolality and hyponatremia; I48.91 Unspecified atrial fibrillation; I11.0 Hypertensive heart disease with heart failure; I50.9 Heart failure, unspecified; E87.5 Hyperkalemia; E86.0 Dehydration; E87.6 Hypokalemia; E78.00 Pure hypercholesterolemia, unspecified; F40.231 Fear of injections and transfusions; Z95.0 Presence of cardiac pacemaker; Z91.14 Patient's other noncompliance with medication regimen; Z79.01 Long term (current) use of anticoagulants; Z79.84 Long term (current) use of oral hypoglycemic drugs; Z79.82 Long term (current) use of aspirin; Z79.4 Long term (current) use of insulin; Z79.899 Other long term (current) drug therapy
CPT/HCPCS: 36415; 71045; 80048; 80053; 81001; 82550; 82553; 82803; 82962; 83690; 83880; 84484; 85025; 85610; 93005; 93010; 99285; J1650; J1815; J2550; J3490; J7030; J7040; S0119

== ENCOUNTER → 2018-06-05 | Outpatient (CLI) | payer MEDICARE, MEDICAID ==
[2018-06-05 18:05] LABS: ALANINE AMINOTRANSFERASE 19 U/L (21-72); ALBUMIN 3.8 g/dL (3.5-5.0); ALKALINE PHOSPHATASE 64 U/L (38-126); ANION GAP 13 (5-19); ASPARTATE AMINO TRANSFERASE 15 U/L (17-59); BILIRUBIN,DIRECT 0.4 mg/dL (0.0-0.4); BILIRUBIN,TOTAL 1.3 mg/dL (0.2-1.3); BLOOD UREA NITROGEN 13 mg/dL (7-20); CALCIUM 8.5 mg/dL (8.4-10.2); CARBON DIOXIDE 30 mmol/L (22-30); CHLORIDE 98 mmol/L (98-107); GLUCOSE 154 mg/dL (75-110); POTASSIUM 3.6 mmol/L (3.6-5.0); SODIUM 140.7 mmol/L (137-145)
== END ==
LOC: OD 15:37
PROVIDERS: ATTEND Internal Medicine Geriatric Medicine
DX: E11.65 Type 2 diabetes mellitus with hyperglycemia (principal)
CPT/HCPCS: 36415; 80053

== ENCOUNTER 2019-09-10 01:29 | Inpatient (IN) | payer MEDICARE, MEDICAID ==
--- NOTE | 2019-09-10 03:20 | RADIOLOGY REPORT (SQ) ---
XR CHEST 2 VIEWS EXAM DATE: 09/10/2019 12:00 AM SOCIAL WORKER PALLIATIVE CARE HISTORY: CP. COMPARISON: 06/01/2018 FINDINGS: Stable cardiomegaly and triple lead left chest wall pacemaker. There is moderate pulmonary vascular congestion. No consolidation, pleural effusion, or pneumothorax is seen. No acute bony findings. IMPRESSION: Cardiogenic pulmonary edema, without pleural effusions.
[2019-09-10 04:12] LABS: ABSOLUTE BASOPHILS # (AUTO) 0.1 10^3/uL (0.0-0.2); ABSOLUTE EOSINOPHILS # (AUTO) 0.2 10^3/uL (0.0-0.6); ABSOLUTE LYMPHOCYTES (AUTO) 1.3 10^3/uL (0.5-4.7); ABSOLUTE MONOCYTES (AUTO) 0.8 10^3/uL (0.1-1.4); ABSOLUTE NEUT (AUTO) 3.6 10^3/uL (1.7-8.2); BASOPHILS % (AUTO) 1.1 % (0-2); EOSINOPHILS % (AUTO) 2.6 % (0-6); HEMATOCRIT 46.2 % (37.9-51.0); HEMOGLOBIN 15.3 g/dL (13.5-17.0); MEAN CORPUSCULAR HEMOGLOBIN 29.4 pg (27.0-33.4); MEAN CORPUSCULAR VOLUME 89 fl (80-97); MONOCYTES % (AUTO) 13.7 % (3-13); PLATELET COUNT 121 10^3/uL (150-450); RED BLOOD COUNT 5.19 10^6/uL (4.35-5.55); RED CELL DISTRIBUTION WIDTH 15.1 % (11.5-14.0); SEGMENTED NEUTROPHILS % (AUTO) 60.6 % (42-78); TOTAL CELLS COUNTED % (AUTO) 100 %; WHITE BLOOD COUNT 5.9 10^3/uL (4.0-10.5)
[2019-09-10 04:31] LABS: ALBUMIN 3.7 g/dL (3.5-5.0); ALKALINE PHOSPHATASE 77 U/L (38-126); ANION GAP 13 (5-19); ASPARTATE AMINO TRANSFERASE 17 U/L (17-59); BILIRUBIN,DIRECT 0.3 mg/dL (0.0-0.4); BILIRUBIN,TOTAL 1.4 mg/dL (0.2-1.3); BLOOD UREA NITROGEN 11 mg/dL (7-20); CALCIUM 8.9 mg/dL (8.4-10.2); CARBON DIOXIDE 24 mmol/L (22-30); CHLORIDE 100 mmol/L (98-107); CREATINE KINASE 130 U/L (55-170); GLUCOSE 399 mg/dL (75-110); POTASSIUM 4.6 mmol/L (3.6-5.0); TOTAL PROTEIN 6.6 g/dL (6.3-8.2)
[2019-09-10 04:42] LABS: CREATINE KINASE MB 1.22 ng/mL (<4.55)
[2019-09-10 04:50] LABS: TROPONIN I 0.064 ng/mL
[2019-09-10] MEDS ORDERED: NITROGLYCERIN 2% OINTMENT 1 GM PACKET TP ONE (04:50)
--- NOTE | 2019-09-10 04:52 | ER Document Report ---
ED Medical Screen (RME) - General Chief Complaint: Chest Pain Stated Complaint: CHEST PAIN Time Seen by Provider: 09/10/19 04:41 Primary Care Provider: GOLDEN ANDREWS MD [Primary Care Provider] - Follow up as needed Notes: 59-year-old male that comes to the emergency department for chief complaint of chest pain that started at about 11 PM last night, woke him from his sleep, pain was persistent and left-sided. He also reports increased swelling in both legs and increased shortness of breath especially when lying down progressing over the past 2 weeks. Past medical history includes CHF on 40 mg Lasix twice a day, AICD placement on Eliquis, insulin-dependent diabetes. He denies history of TN or cardiac cath with stents. He did have cardiac surgery as a child. Follows with Dr. Olivarez cardiology in [place], locally Dr. Andrews. TRAVEL OUTSIDE OF THE [place] IN LAST 30 DAYS: No - Related Data Allergies/Adverse Reactions: No Known Allergies Allergy (Verified 09/10/19 01:47) Past Medical History - Past Medical History Cardiac Medical History: Reports: Hx Atrial Fibrillation, Hx Congestive Heart Failure, Hx Hypercholesterolemia, Hx Hypertension, Hx Heart Murmur Denies: Hx Coronary Artery Disease, Hx Heart Attack, Hx Peripheral Vascular Disease, Hx Pulmonary Embolism Pulmonary Medical History: Reports: Hx Pneumonia - as a child, Hx Sleep Apnea - cpap Denies: Hx Asthma, Hx Bronchitis, Hx COPD, Hx Respiratory Failure, Hx Tuberculosis Neurological Medical History: Denies: Hx Cerebrovascular Accident, Hx Seizures, Hx Parkinson's Disease Endocrine Medical History: Reports: Hx Diabetes Mellitus Type 1, Hx Diabetes Mellitus Type 2. Denies: Hx Graves' Disease, Hx Hyperthyroidism, Hx Hypothyroidism Renal/ Medical History: Denies: Hx Benign Prostatic Hyperplasia, Hx End Stage Renal Disease, Hx Kidney Stones, Hx Peritoneal Dialysis Malignancy Medical History: Denies Hx Leukemia, Denies Hx Lung Cancer GI Medical History: Denies: Hx Crohn's Disease, Hx Gastroesophageal Reflux Disease, Hx Hiatal Hernia, Hx Irritable Bowel, Hx Liver Failure, Hx Pancreatitis, Hx Ulcer Musculoskeltal Medical History: Denies Hx Arthritis, Denies Hx Fibromyalgia, Denies Hx Multiple Sclerosis, Denies Hx Muscular Dystrophy, Denies Hx Systemic Lupus Erythematosus Psychiatric Medical History: Denies: Hx Bipolar Disorder, Hx Dementia, Hx Depression, Hx Post Traumatic Stress Disorder, Hx Schizophrenia Traumatic Medical History: Denies: Hx Fractures Infectious Medical History: Denies: Hx HIV Past Surgical History: Reports: Hx Appendectomy, Hx Cardiac Surgery - defibrillator/pacemaker, valve closure as child, Hx Pacemaker - defibrillator. Denies: Hx Colostomy - Immunizations Hx Diphtheria, Pertussis, Tetanus Vaccination: Yes - 2012 Physical Exam - Respiratory Respiratory status: No respiratory distress Breath sounds: Normal - Extremities General lower extremity: Edema - Bilateral lower extremity edema with 2+ pitting Course - Re-evaluation Re-evalutation: Patient took 324 mg of aspirin prior to arrival at home, currently states pain is almost completely gone I have greeted and performed a rapid initial assessment of this patient. A comprehensive ED assessment and evaluation of the patient, analysis of test results and completion of the medical decision making process will be conducted by additional ED providers. - Laboratory Result Diagrams: 09/10/19 03:56 09/10/19 03:56 Laboratory results interpreted by me: 09/10/19 09/10/19 03:56 03:56 RDW 15.1 H Plt Count 121 L [place] % (Auto) 13.7 H Sodium 136.6 L Glucose 399 H Total Bilirubin 1.4 H Doctor's Discharge - Discharge Referrals: GOLDEN ANDREWS MD [Primary Care Provider] - Follow up as needed
[2019-09-10] MEDS ORDERED: FUROSEMIDE INJ/PF 20 MG/2 ML SDV IV ONE (05:58)
[2019-09-10] MEDS ORDERED: ASPIRIN 81 MG TABLET, CHEWABLE PO ONE (05:58)
--- NOTE | 2019-09-10 06:20 | ER Document Report ---
ED General - General Chief Complaint: Chest Pain Stated Complaint: CHEST PAIN Time Seen by Provider: 09/10/19 04:41 Primary Care Provider: GOLDEN ANDREWS MD [Primary Care Provider] - Follow up as needed TRAVEL OUTSIDE OF THE [place] IN LAST 30 DAYS: No - HPI Notes: This is a 59-year-old gentleman with a history of CHF, diabetes, and cardiomyopathy who presents with a complaint of substernal chest pain that started last night around 10 PM. Patient describes his pain as aching, nonradiating. Pain is worse with exertion. Associated symptoms include dyspnea. Patient states that he took 4 baby aspirins prior to coming to the emergency department. He is currently pain-free with nitroglycerin. Patient also has a history of CHF for which he takes Lasix. He admits that he has missed a few doses of his Lasix. Describes increased swelling in his legs. - Related Data Allergies/Adverse Reactions: No Known Allergies Allergy (Verified 09/10/19 01:47) Past Medical History - Social History Smoking Status: Never Smoker Family History: Hypertension Patient has suicidal ideation: No Patient has homicidal ideation: No - Past Medical History Cardiac Medical History: Reports: Hx Atrial Fibrillation, Hx Congestive Heart Failure, Hx Hypercholesterolemia, Hx Hypertension, Hx Heart Murmur Denies: Hx Coronary Artery Disease, Hx Heart Attack, Hx Peripheral Vascular Disease, Hx Pulmonary Embolism Pulmonary Medical History: Reports: Hx Pneumonia - as a child, Hx Sleep Apnea - cpap Denies: Hx Asthma, Hx Bronchitis, Hx COPD, Hx Respiratory Failure, Hx Tuberculosis Neurological Medical History: Denies: Hx Cerebrovascular Accident, Hx Seizures, Hx Parkinson's Disease Endocrine Medical History: Reports: Hx Diabetes Mellitus Type 1, Hx Diabetes Mellitus Type 2. Denies: Hx Graves' Disease, Hx Hyperthyroidism, Hx Hypothyroidism Renal/ Medical History: Denies: Hx Benign Prostatic Hyperplasia, Hx End Stage Renal Disease, Hx Kidney Stones, Hx Peritoneal Dialysis Malignancy Medical History: Denies Hx Leukemia, Denies Hx Lung Cancer GI Medical History: Denies: Hx Crohn's Disease, Hx Gastroesophageal Reflux Disease, Hx Hiatal Hernia, Hx Irritable Bowel, Hx Liver Failure, Hx Pancreatitis, Hx Ulcer Musculoskeletal Medical History: Denies Hx Arthritis, Denies Hx Fibromyalgia, Denies Hx Multiple Sclerosis, Denies Hx Muscular Dystrophy, Denies Hx Systemic Lupus Erythematosus Psychiatric Medical History: Denies: Hx Bipolar Disorder, Hx Dementia, Hx Depression, Hx Post Traumatic Stress Disorder, Hx Schizophrenia Traumatic Medical History: Denies: Hx Fractures Infectious Medical History: Denies: Hx HIV Past Surgical History: Reports: Hx Appendectomy, Hx Cardiac Surgery - defibrillator/pacemaker, valve closure as child, Hx Pacemaker - defibrillator. Denies: Hx Colostomy - Immunizations Hx Diphtheria, Pertussis, Tetanus Vaccination: Yes - 2012 Hx Pneumococcal Vaccination: 10/08/12 Review of Systems - Review of Systems Cardiovascular: Chest pain, Orthopnea, Dyspnea, Edema Respiratory: Short of breath. denies: Cough Gastrointestinal: denies: Abdominal pain, Diarrhea -: Yes All other systems reviewed and negative Physical Exam - Vital signs Vitals: Temp Pulse Resp BP Pulse Ox 98.0 F 93 16 113/96 H 98 09/10/19 01:41 09/10/19 01:41 09/10/19 01:41 09/10/19 01:41 09/10/19 01:41 - General General appearance: Appears well, Alert - Respiratory Respiratory status: No respiratory distress Chest status: Nontender Breath sounds: Rales - Rales at the lung bases. Chest palpation: Normal - Cardiovascular Rhythm: Regular Heart sounds: Normal auscultation Murmur: No - Abdominal Inspection: Normal Distension: No distension Bowel sounds: Normal Tenderness: Nontender Organomegaly: No organomegaly - Extremities General upper extremity: Normal inspection, Nontender, Normal color, Normal ROM, Normal temperature General lower extremity: Normal inspection, Nontender, Edema - 2+ peripheral edema bilaterally., Normal color, Normal ROM, Normal temperature, Normal weight bearing. No: Genia's sign - Neurological Neuro grossly intact: Yes Cognition: Normal Orientation: AAOx4 Gibbon Coma Scale Eye Opening: Spontaneous Paul Coma Scale Verbal: Oriented Paul Coma Scale Motor: Obeys Commands Paul Coma Scale Total: 15 Speech: Normal Motor strength normal: LUE, RUE, LLE, RLE Sensory: Normal - Psychological Associated symptoms: Normal affect, Normal mood Course - Re-evaluation Re-evalutation: 09/10/19 06:19 Differential diagnosis includes acute coronary syndrome versus CHF exacerbation. EKG shows atrial sensed ventricular paced rhythm at 96 bpm. 0613 Patient is doing well. He remains pain-free. Troponin trending up. 0623 Patient's care discussed with Dr. Andrews, PCP. He recommends admission to IMCU. He accepts admission. 09/10/19 06:33 09/10/19 06:35 - Vital Signs Vital signs: Temp Pulse Resp BP Pulse Ox 98.0 F 93 11 L 150/89 H 100 09/10/19 01:41 09/10/19 01:41 09/10/19 05:01 09/10/19 05:01 09/10/19 05:01 - Laboratory Result Diagrams: 09/10/19 03:56 09/10/19 03:56 Laboratory results interpreted by me: 09/10/19 09/10/19 09/10/19 03:56 03:56 03:56 RDW 15.1 H Plt Count 121 L Rowan % (Auto) 13.7 H Sodium 136.6 L Glucose 399 H Total Bilirubin 1.4 H NT-Pro-B Natriuret Pep 1120 H Discharge - Discharge Clinical Impression: NSTEMI (non-ST elevated myocardial infarction) Chest pain Qualifiers: Chest pain type: precordial pain Qualified Code(s): R07.2 - Precordial pain Acute exacerbation of CHF (congestive heart failure) Qualifiers: Heart failure type: unspecified Qualified Code(s): I50.9 - Heart failure, unspecified Condition: Fair Disposition: ADMITTED INPATIENT Admitting Provider: Breanna Unit Admitted: IMCU Referrals: GOLDEN ANDREWS MD [Primary Care Provider] - Follow up as needed
[2019-09-10] MEDS ORDERED: DEXTROSE 50%-WATER 25 GM/50 ML DISP.SYRIN IV PRN ×2 (08:48)
[2019-09-10] MEDS ORDERED: GLUCAGON,HUMAN RECOMB 1 MG INJ IM PRN (08:48)
[2019-09-10] MEDS ORDERED: DEXTROSE 40% GEL 15 GM TUBE PO PRN ×2 (08:48)
[2019-09-10 11:31] LABS: CREATINE KINASE MB 2.71 ng/mL (<4.55)
[2019-09-10 11:35] LABS: TROPONIN I 1.54 ng/mL
[2019-09-10] MEDS ORDERED: LISINOPRIL 10 MG TABLET PO SCH (12:30)
[2019-09-10] MEDS ORDERED: ENOXAPARIN SODIUM INJ 100 MG/1 ML DISP.SYRIN SUBCUT SCH (12:45)
[2019-09-10] MEDS: NITROGLYCERIN 0.4 MG/TAB 25 TAB/BOTTLE SL PRN ×2 (12:58→22:07)
[2019-09-10] MEDS: CARVEDILOL 12.5 MG TABLET PO SCH ×2 (12:59→21:37)
[2019-09-10] MEDS: INSULIN LISPRO 100 UNIT/ML 3 ML VIAL SUBCUT SCH ×3 (15:54→21:44)
[2019-09-10] MEDS: INSULIN GLARGINE,HUM.REC.ANLOG 1,000 UNIT/10 ML VIAL SUBCUT SCH (15:55)
[2019-09-10] MEDS: PANTOPRAZOLE SODIUM 40 MG TABLET.DR PO SCH (15:58)
[2019-09-10] MEDS: DOFETILIDE 500 MCG CAPSULE PO SCH ×2 (15:58→21:49)
[2019-09-10 16:38] LABS: CREATINE KINASE MB 2.32 ng/mL (<4.55); TROPONIN I 1.06 ng/mL
[2019-09-10] MEDS: GLIMEPIRIDE 4 MG TABLET PO SCH (17:10)
[2019-09-10] MEDS: METFORMIN HCL 500 MG TABLET PO SCH (17:10)
[2019-09-10] MEDS ORDERED: (PENDING PHARMACY ID) (Metformin Hcl [Metformin Hcl Er] 1,000 MG) PO SCH (18:00)
--- NOTE | 2019-09-10 18:16 | PDOC H&P ---
History of Present Illness Admission Date/PCP: 09/10/19 06:37 [facility] Patient complains of: Chest pain History of Present Illness: JOSEFA MCKEON is a 59 year old male known to my practice who presented to the ED with complain of substernal chest pain since about 10 PM last night. He reported self administration of Aspirin 324mg at onset of his pain. He described pain as achy, nonradiating and associated with shortness of breath. He denied any associated diaphoresis, nausea, vomiting, dizziness or loss of consciousness. Patient reported compliance with his medication but missed some doses of his prescribed Lasix. There has been gradual increase in his leg swelling over last couple of days. He admitted to episodes of PND and orthopnea. His initial ED evaluation was significant for marginal increase in his NT Pro BNP, elevated Troponin level, and hyperglycemia. He was advised hospitalization for further evaluation and management. His morbidities are as listed below. Past Medical History Cardiac Medical History: Reports: Atrial Fibrillation, Congestive Heart Failure, Hyperlipidema, Hypertension, Heart Murmur Denies: Coronary Artery Disease, Myocardial Infarction, Peripheral Vascular Disease, Pulmonary Embolism Pulmonary Medical History: Reports: Pneumonia - as a child, Sleep Apnea - cpap Denies: Asthma, Bronchitis, Chronic Obstructive Pulmonary Disease (COPD), Respiratory Failure, Tuberculosis Neurological Medical History: Denies: Seizures Endocrine Medical History: Reports: Diabetes Mellitus Type 1, Diabetes Mellitus Type 2 Denies: Hyperthyroidism, Hypothyroidism Renal/ Medical History: Denies: End Stage Renal Disease Malignancy Medical History: Denies: Breast Cancer, Cervical Cancer, Leukemia, Lung Cancer, Ovarian Cancer GI Medical History: Denies: Crohn's Disease, Gastroesophageal Reflux Disease, Hiatal Hernia Musculoskeltal Medical History: Denies: Arthritis, Fibromyalgia Psychiatric Medical History: Denies: Bipolar Disorder, Dementia, Depression, Post Traumatic Stress Disorder Hematology: Denies: Anemia, Hemophilia, Sickle Cell Disease Infectious Medical History: Denies: HIV Past Surgical History Past Surgical History: Reports: Appendectomy, Pacemaker - defibrillator Denies: Colostomy Social History Smoking Status: Never Smoker Frequency of Alcohol Use: None Hx Recreational Drug Use: No Drugs: None Hx Prescription Drug Abuse: No - Advance Directive Resuscitation Status: Full Code Family History Family History: Hypertension Parental Family History Reviewed: Yes Children Family History Reviewed: Yes Sibling(s) Family History Reviewed.: Yes Medication/Allergy Home Medications: Atorvastatin Calcium [Lipitor 20 mg Tablet] 20 mg PO QHS 06/01/18 Carvedilol [Coreg 12.5 mg Tablet] 12.5 mg PO Q12 06/01/18 Dofetilide [Tikosyn 500 Mcg Capsule] 500 mcg PO Q12 06/01/18 Furosemide [Lasix 40 mg Tablet] 40 mg PO BID 06/01/18 Lisinopril [Zestril] 10 mg PO DAILY 06/01/18 Apixaban [Eliquis 5 mg Tablet] 5 mg PO BID MDD LAST FILLED Dec09/10/19 Dulaglutide [Trulicity] 0.75 mg SUBCUT SA@1000 09/10/19 Glimepiride [Amaryl 4 mg Tablet] 4 mg PO BID 09/10/19 Insulin Glargine,Hum.rec.anlog [Mindy Solostar] 25 units SUBCUT DAILY 09/10/19 Metformin HCl [Metformin HCl ER] 1,000 mg PO BID 09/10/19 Allergies/Adverse Reactions: No Known Allergies Allergy (Verified 09/10/19 01:47) Review of Systems Constitutional: PRESENT: fatigue, weakness Eyes: ABSENT: visual disturbances Ears: ABSENT: hearing changes Nose, Mouth, and Throat: ABSENT: as per HPI, headache(s), mouth pain, sore throat, vertigo, other Cardiovascular: PRESENT: chest pain, dyspnea on exertion, edema, orthropnea Respiratory: PRESENT: dyspnea. ABSENT: cough, hemoptysis, sputum Gastrointestinal: ABSENT: abdominal pain, constipation, diarrhea, hematemesis, hematochezia, nausea, vomiting Genitourinary: ABSENT: dysuria, hematuria Neurological: ABSENT: abnormal gait, abnormal speech, confusion, dizziness, focal weakness, syncope Psychiatric: ABSENT: anxiety, depression, homidical ideation, suicidal ideation Endocrine: ABSENT: cold intolerance, heat intolerance, polydipsia, polyuria Hematologic/Lymphatic: ABSENT: easy bleeding, easy bruising, lymphadenopathy Allergic/Immunologic: ABSENT: seasonal rhinorrhea Physical Exam Vital Signs: Temp Pulse Resp BP Pulse Ox 98.0 F 93 24 H 131/88 H 100 09/10/19 01:41 09/10/19 01:41 09/10/19 08:00 09/10/19 08:01 09/10/19 08:01 Intake & Output 11/04/2209/10/19 09/11/19 06:59 06:59 06:59 Weight 100.6 kg General appearance: PRESENT: mild distress - on supplemental oxygen via nasal cannula, obese Head exam: PRESENT: atraumatic, normocephalic Eye exam: PRESENT: conjunctiva pink, EOMI, PERRLA. ABSENT: scleral icterus Ear exam: PRESENT: normal external ear exam Mouth exam: PRESENT: moist, tongue midline Neck exam: PRESENT: full ROM. ABSENT: carotid bruit, JVD, lymphadenopathy, thyromegaly Respiratory exam: PRESENT: decreased breath sounds - at lung bases Cardiovascular exam: PRESENT: RRR. ABSENT: diastolic murmur, rubs, systolic murmur Vascular exam: ABSENT: pallor GI/Abdominal exam: PRESENT: normal bowel sounds, soft. ABSENT: distended, guarding, mass, organolmegaly, rebound, tenderness Rectal exam: PRESENT: deferred Extremities exam: PRESENT: pedal edema - 2+ bilaterally Neurological exam: PRESENT: alert, awake, oriented to person, oriented to place, oriented to time, oriented to situation, CN II-XII grossly intact. ABSENT: motor sensory deficit Psychiatric exam: PRESENT: appropriate affect, normal mood. ABSENT: homicidal ideation, suicidal ideation Skin exam: PRESENT: dry, warm Results Laboratory Results: 09/10/19 03:56 09/10/19 03:56 09/10/19 09/10/19 03:56 03:56 WBC 5.9 RBC 5.19 Hgb 15.3 Hct 46.2 MCV 89 MCH 29.4 MCHC 33.0 RDW 15.1 H Plt Count 121 L Seg Neutrophils % 60.6 Sodium 136.6 L Potassium 4.6 Chloride 100 Carbon Dioxide 24 Anion Gap 13 BUN 11 Creatinine 0.98 Est GFR ( Amer) > 60 Glucose 399 H Calcium 8.9 Total Bilirubin 1.4 H AST 17 Alkaline Phosphatase 77 Total Protein 6.6 Albumin 3.7 09/10/19 09/10/19 09/10/19 03:56 03:56 03:56 Creatine Kinase 130 CK-MB (CK-2) 1.22 Troponin I 0.064 NT-Pro-B Natriuret Pep 1120 H 09/10/19 05:24 Creatine Kinase CK-MB (CK-2) Troponin I 0.209 NT-Pro-B Natriuret Pep Impressions: Chest X-Ray 09/10/19 00:00 IMPRESSION: Cardiogenic pulmonary edema, without pleural effusions. Assessment & Plan - Diagnosis (1) NSTEMI (non-ST elevated myocardial infarction) Is this a current diagnosis for this admission?: Yes Plan: See admitting attending physician orders for details about care plan. (2) Acute exacerbation of CHF (congestive heart failure) Qualifiers: Heart failure type: combined systolic and diastolic Qualified Code(s): I50.43 - Acute on chronic combined systolic (congestive) and diastolic (congestive) heart failure Is this a current diagnosis for this admission?: Yes Plan: See admitting attending physician orders for details about care plan. (3) Chronic combined systolic and diastolic congestive heart failure Is this a current diagnosis for this admission?: Yes Plan: See admitting attending physician orders for details about care plan. (4) Diabetes mellitus type 2 in obese Is this a current diagnosis for this admission?: Yes Plan: See admitting attending physician orders for details about care plan. (5) HTN (hypertension) Qualifiers: Hypertension type: essential hypertension Qualified Code(s): I10 - Essential (primary) hypertension Is this a current diagnosis for this admission?: Yes Plan: See admitting attending physician orders for details about care plan. (6) HLD (hyperlipidemia) Qualifiers: Hyperlipidemia type: unspecified Qualified Code(s): E78.5 - Hyperlipidemia, unspecified Is this a current diagnosis for this admission?: Yes Plan: See admitting attending physician orders for details about care plan. - Time Time Spent: 50 to 70 Minutes - Inpatient Certification Based on my medical assessment, after consideration of the patient's comorbidities, presenting symptoms, or acuity I expect that the services needed warrant INPATIENT care.: Yes I certify that my determination is in accordance with my understanding of Medicare's requirements for reasonable and necessary INPATIENT services [42 CFR 412.3e].: Yes Medical Necessity: Significant Comorbidiites Make Outpatient Treatment Too Risky, Need Close Monitoring Due to Risk of Patient Decompensation, Need For Continuous Telemetry Monitoring, Risk of Complication if Not Cared For in Hospital, Risk of Diagnosis Which Will Require Inpatient Eval/Care/Monitoring Post Hospital Care: D/C Contact Center Director Documentation - Plan Summary Plan Summary: See admitting attending physician orders for details about care plan.
--- NOTE | 2019-09-10 21:32 | PDOC CONSULTATION ---
Consultation-Blank Consultation: CARDIOLOGY CONSULTATION by Dr. Jessica Lechuga on 09/10/2019. Patient seen at 3:30 PM. 60 minutes spent on this patient with more than 60% of time spent in direct patient care. REASON FOR CONSULTATION: Elevated troponin I considered to be non-ST elevation [place] on admission. CONSULT REQUESTING PHYSICIAN: Dr. Carlos. History of present illness: Patient admitted with a history of chest pains. The patient is a 59-year-old Af[place] male with history of hypertension, diabetes mellitus, dilated cardiomyopathy with recent [place] echocardiogram LV ejection fraction of 30% to 35% admitted with a few days of chest pain which comes and goes. It is not related to exertion. The patient states that there is left front of the chest which is like a burning pain which is exacerbated by shoulder movements and movements of the pectoral muscles. The patient denies any lifting heavy weights. He states the nitroglycerin did not actually relieve the pain pain. The patient states it took about 2 hours for the sublingual nitroglycerin to relieve his chest pain. The chest pain lasts for about 20 minutes and recurs. It is not related to act exertion but is produced by movements of the left shoulder and contraction of the left front chest wall muscles. His troponin I is elevated and hence in view of the patient chest pain and elevated troponin I I have a cardiology consulted for a diagnosis of possible non-ST elevation [place]. The troponin is trending down. The patient also recently been having symptoms of PND orthopnea and increasing leg edema. There is no palpitations or firing of the AICD. The patient's chest x-ray and physical findings are consistent with acute on chronic systolic heart failure. There is no TIA CVA symptoms. There is no cough wheezing or sputum production. The patient has a biventricular AICD with also an atrial lead. Note the patient is mostly ventricular paced with atrial sensing and atrial tracking and ventricular pacing. Past Medical History Cardiac Medical History: Reports: He has a history of rare episodes of paro xysmal atrial Fibrillation, Congestive Heart Failure, Hyperlipidema, Hypertension, Heart Murmur. He had a cardiac catheterization in 2006 which showed normal coronaries. In 2013 he had a stress test which showed mild reversible ischemia in the tip of the apical septum. Denies: Coronary Artery Disease, Myocardial Infarction, Peripheral Vascular Disease, Pulmonary Embolism Pulmonary Medical History: Reports: Pneumonia - as a child, he has a history of sleep Apnea -, and wears Cpap Denies: Asthma, Bronchitis, Chronic Obstructive Pulmonary Disease (COPD), Respiratory Failure, Tuberculosis Neurological Medical History: Denies: Seizures Endocrine Medical History: Reports: Diabetes Mellitus Type 1, Diabetes Mellitus Type 2 Denies: Hyperthyroidism, Hypothyroidism Renal/ Medical History: Denies: End Stage Renal Disease Denies: Crohn's Disease, Gastroesophageal Reflux Disease, Hiatal Hernia Musculoskeltal Medical History: Denies: Arthritis, Fibromyalgia Malignancy Medical History: No history of malignancy. GI Medical History: No history of GERD. No history of GI bleed. There is no hepatitis or jaundice. Psychiatric Medical History: Denies: Bipolar Disorder, Dementia, Depression, Post Traumatic Stress Disorder Hematology: Denies: Anemia, Hemophilia, Sickle Cell Disease Infectious Medical History: Denies: HIV Past Surgical History Past Surgical History: Reports: Appendectomy, cardiac catheterization,- biventricular defibrillator Denies: Colostomy Social History Smoking Status: Never Smoker Frequency of Alcohol Use: None Hx Recreational Drug Use: No Drugs: None Hx Prescription Drug Abuse: No Current Medications Atorvastatin Calcium (Lipitor 20 Mg Tablet) 20 mg PO QHS ILAN Stop: 10/10/19 21:59 Carvedilol (Coreg 12.5 Mg Tablet) 12.5 mg PO Q12 ILAN Stop: 10/10/19 12:59 Last Admin: 09/10/19 12:59 Dose: 12.5 mg Documented by: Dextrose (Dextrose Inj 50% Syringe (25 Gm/50 Ml)) 12.5 gm IV PRN PRN; Protocol PRN Reason: FOR BG 50-69 IN ALERT PATIENT Stop: 10/10/19 08:47 Dextrose (Dextrose Inj 50% Syringe (25 Gm/50 Ml)) 25 gm IV PRN PRN; Protocol PRN Reason: PER PROTOCOL Stop: 10/10/19 08:47 Dofetilide (Tikosyn 500 Mcg Capsule) 500 mcg PO Q12 ILAN Stop: 10/10/19 13:59 Last Admin: 09/10/19 15:58 Dose: Not Given Documented by: Furosemide (Lasix Inj/Pf 20 Mg/2 Ml Sdv) 20 mg IV Q8 ILAN Stop: 10/10/19 21:59 Glimepiride (Amaryl 4 Mg Tablet) 4 mg PO BID ILAN Stop: 10/10/19 17:59 Last Admin: 09/10/19 17:10 Dose: 4 mg Documented by: Glucagon (Glucagen Inj 1 Mg Vial) 1 mg IM PRN PRN; Protocol PRN Reason: Evaluate for BG < 70 Stop: 10/10/19 08:47 Glucose (Glutose 40% Gel 15 Gm Tube) 15 gm PO PRN PRN; Protocol PRN Reason: FOR BG 50-69 IN ALERT PATIENT Stop: 10/10/19 08:47 Glucose (Glutose 40% Gel 15 Gm Tube) 30 gm PO PRN PRN; Protocol PRN Reason: FOR BG < 50 IN ALERT PATIENT Stop: 10/10/19 08:47 Insulin Glargine (Lantus Insulin 100 Unit/1 Ml 10 Ml) 25 unit SUBCUT DAILY [facility] Stop: 10/10/19 14:59 Last Admin: 09/10/19 15:55 Dose: Not Given Documented by: Insulin Human Lispro (Humalog Insulin 100 Unit/1 Ml 3 Ml Vial) 0 - 12 unit SUBCUT ACHS [facility]; Protocol Stop: 10/10/19 10:59 Last Admin: 09/10/19 16:48 Dose: 10 unit Documented by: Lisinopril (Prinivil 10 Mg Tablet) 10 mg PO Q12 [facility] Stop: 10/10/19 21:59 Metformin HCl (Glucophage 500 Mg Tablet) 500 mg PO Q6 [facility] Stop: 10/10/19 17:59 Last Admin: 09/10/19 17:10 Dose: 500 mg Documented by: Nitroglycerin (Nitrostat 0.4 Mg (1/150 Gr) Tabs 25/Bottle) 1 tab SL ASDIR PRN PRN Reason: FOR CHEST PAIN Last Admin: 09/10/19 12:58 Dose: 1 tab Documented by: Pantoprazole Sodium (Protonix [address] Tablet) 40 mg PO Q6AM [facility] Stop: 10/10/19 09:29 Last Admin: 09/10/19 15:58 Dose: Not Given Documented by: Patient Own Medication (Dulaglutide [Trulicity]) 0.75 mg SUBCUT SA@1000 [facility] Stop: 10/12/19 09:59 Discontinued Medications Aspirin (Aspirin 81 Mg Chewable Tablet) 324 mg PO NOW ONE Stop: 09/10/19 05:59 Last Admin: 09/10/19 06:06 Dose: Not Given Documented by: Enoxaparin Sodium (Lovenox Inj 100 Mg/1 Ml Disp.Syrin) 95 mg SUBCUT Q12 ILAN Stop: 10/10/19 12:44 Last Admin: 09/10/19 12:59 Dose: 95 mg Documented by: Furosemide (Lasix Inj/Pf 20 Mg/2 Ml Sdv) 60 mg IV NOW ONE Stop: 09/10/19 05:59 Last Admin: 09/10/19 06:08 Dose: 60 mg Documented by: Lisinopril (Prinivil 10 Mg Tablet) 10 mg PO DAILY ILAN Stop: 10/10/19 12:29 Last Admin: 09/10/19 12:59 Dose: 10 mg Documented by: Nitroglycerin (Nitrol 2% Ointment 1gm Packet) 1 gm TP NOW ONE Stop: 09/10/19 04:51 Last Admin: 09/10/19 05:29 Dose: 1 gm Documented by: - Advance Directive Resuscitation Status: Full Code. He states his fiance is his surrogate healthcare decision maker. Family History Family History: Hypertension Parental Family History Reviewed: Yes Children Family History Reviewed: Yes Sibling(s) Family History Reviewed.: Yes Medication/Allergy Home Medications: Atorvastatin Calcium [Lipitor 20 mg Tablet] 20 mg PO QHS 06/01/18 Carvedilol [Coreg 12.5 mg Tablet] 12.5 mg PO Q12 06/01/18 Dofetilide [Tikosyn 500 Mcg Capsule] 500 mcg PO Q12 06/01/18 Furosemide [Lasix 40 mg Tablet] 40 mg PO BID 06/01/18 Lisinopril [Zestril] 10 mg PO DAILY 06/01/18 Apixaban [Eliquis 5 mg Tablet] 5 mg PO BID MDD LAST FILLED Dec09/10/19 Dulaglutide [Trulicity] 0.75 mg SUBCUT SA@1000 09/10/19 Glimepiride [Amaryl 4 mg Tablet] 4 mg PO BID 09/10/19 Insulin Glargine,Hum.rec.anlog [Mindy Solmilad] 25 units SUBCUT DAILY 09/10/19 Metformin HCl [Metformin HCl ER] 1,000 mg PO BID 09/10/19 Allergies/Adverse Reactions: No Known Allergies Allergy (Verified 09/10/19 01:47) Review of Systems Constitutional: PRESENT: fatigue, weakness Eyes: ABSENT: visual disturbances Ears: ABSENT: hearing changes Nose, Mouth, and Throat: ABSENT: as per HPI, headache(s), mouth pain, sore throat, vertigo, other Cardiovascular: PRESENT: chest pain, dyspnea on exertion, edema, orthropnea Respiratory: PRESENT: dyspnea. ABSENT: cough, hemoptysis, sputum Gastrointestinal: ABSENT: abdominal pain, constipation, diarrhea, hematemesis, hematochezia, nausea, vomiting Genitourinary: ABSENT: dysuria, hematuria Neurological: ABSENT: abnormal gait, abnormal speech, confusion, dizziness, focal weakness, syncope Psychiatric: ABSENT: anxiety, depression, homidical ideation, suicidal ideation Endocrine: ABSENT: cold intolerance, heat intolerance, polydipsia, polyuria Hematologic/Lymphatic: ABSENT: easy bleeding, easy bruising, lymphadenopathy Allergic/Immunologic: ABSENT: seasonal rhinorrhea PHYSICAL EXAMINATION: The patient is mildly obese. In no acute distress. He is well-groomed. Selected Entries 09/10/19 15:33 Temperature 97.4 F Temperature Oral Source Pulse Rate 84 Respiratory 18 Rate Blood Pressure 110/74 Blood Pressure 86 Mean BP Location Right Arm BP Position Supine O2 Sat by Pulse 97 Oximetry Oxygen Flow 2.00 Rate Oxygen Delivery Nasal Cannula Method HEAD: Is atraumatic normocephalic. EYES: Pupils are equal round regular reactive to light and accommodation. Extraocular movements are normal. There is no conjunctival pallor. There is no scleral icterus. EARS: Tympanic memories are intact. External auditory canals are clear. NOSE: There is no deviated nasal septum. There is no inflammation of these mucous membrane. MOUTH: Mucous membranes of mouth are moist. Tongue is moist. There is no ulcers. There is no bleeding from the gums. THROAT: There is no redness of the oropharynx there is no exudates in the throat. SKIN: There is no skin skin rashes. There is no skin lesions. There is no petechia or ecchymosis. NECK: Is supple. There is mild JVD present. Carotids are equal there is no bruits. There is no lymphadenopathy. There is no goiter. There is no accessory muscle respiration use. Trachea central. LUNGS: Shows a few bibasilar fine rales of CHF. There is no rhonchi or wheezing. HEART: S1-S2 is heard. There is no S3 gallop. There is no S4 gallop. There is systolic murmur left sternal border and the apex there is no rub. ABDOMEN: Is soft. Mildly obese. Nontender. There is no hepatospleno megaly. Bowel sounds well heard. EXTREMITIES: Femorals are well felt. Leg pulses are well felt. There is 1+ bilateral pedal edema. There is no DVT or cellulitis. There is no cyanosis or clubbing. SENIOR SYSTEMS DEVELOPER: The patient is conscious awake alert oriented x3 with no focal deficits. P SYCHIATRIC: The patient judgment and insight are intact. His affect is normal. Labs- Entire Visit 09/10/19 09/10/19 09/10/19 03:56 03:56 03:56 WBC 5.9 RBC 5.19 Hgb 15.3 Hct 46.2 MCV 89 MCH 29.4 MCHC 33.0 RDW 15.1 H Plt Count 121 L Lymph % (Auto) 22.0 [place] % (Auto) 13.7 H Eos % (Auto) 2.6 Baso % (Auto) 1.1 Absolute Neuts (auto) 3.6 Absolute Lymphs (auto) 1.3 Absolute Monos (auto) 0.8 Absolute Eos (auto) 0.2 Absolute Basos (auto) 0.1 Seg Neutrophils % 60.6 Sodium 136.6 L Potassium 4.6 Chloride 100 Carbon Dioxide 24 Anion Gap 13 BUN 11 Creatinine 0.98 Est GFR ( Amer) > 60 Est GFR (MDRD) Non-Af > 60 Glucose 399 H POC Glucose Calcium 8.9 Total Bilirubin 1.4 H Direct Bilirubin 0.3 Neonat Total Bilirubin Not Reportable Neonat Direct Bilirubin Not Reportable Neonat Indirect Bili Not Reportable AST 17 ALT 16 Alkaline Phosphatase 77 Creatine Kinase 130 CK-MB (CK-2) 1.22 Troponin I 0.064 NT-Pro-B Natriuret Pep Total Protein 6.6 Albumin 3.7 09/10/19 09/10/19 09/10/19 03:56 05:24 10:32 WBC RBC Hgb Hct MCV MCH MCHC RDW Plt Count Lymph % (Auto) [place] % (Auto) Eos % (Auto) Baso % (Auto) Absolute Neuts (auto) Absolute Lymphs (auto) Absolute Monos (auto) Absolute Eos (auto) Absolute Basos (auto) Seg Neutrophils % Sodium Potassium Chloride Carbon Dioxide Anion Gap BUN Creatinine Est GFR ( Amer) Est GFR (MDRD) Non-Af Glucose POC Glucose Calcium Total Bilirubin Direct Bilirubin Neonat Total Bilirubin Neonat Direct Bilirubin Neonat Indirect Bili AST ALT Alkaline Phosphatase Creatine Kinase 128 CK-MB (CK-2) Troponin I 0.209 NT-Pro-B Natriuret Pep 1120 H Total Protein Albumin 09/10/19 09/10/19 09/10/19 10:32 12:18 15:42 WBC RBC Hgb Hct MCV MCH MCHC RDW Plt Count Lymph % (Auto) [place] % (Auto) Eos % (Auto) Baso % (Auto) Absolute Neuts (auto) Absolute Lymphs (auto) Absolute Monos (auto) Absolute Eos (auto) Absolute Basos (auto) Seg Neutrophils % Sodium Potassium Chloride Carbon Dioxide Anion Gap BUN Creatinine Est GFR ( Amer) Est GFR (MDRD) Non-Af Glucose POC Glucose 270 H Calcium Total Bilirubin Direct Bilirubin Neonat Total Bilirubin Neonat Direct Bilirubin Neonat Indirect Bili AST ALT Alkaline Phosphatase Creatine Kinase 106 CK-MB (CK-2) 2.71 Troponin I 1.540 NT-Pro-B Natriuret Pep Total Protein Albumin 09/10/19 09/10/19 15:42 16:21 WBC RBC Hgb Hct MCV MCH MCHC RDW Plt Count Lymph % (Auto) [place] % (Auto) Eos % (Auto) Baso % (Auto) Absolute Neuts (auto) Absolute Lymphs (auto) Absolute Monos (auto) Absolute Eos (auto) Absolute Basos (auto) Seg Neutrophils % Sodium Potassium Chloride Carbon Dioxide Anion Gap BUN Creatinine Est GFR ( Amer) Est GFR (MDRD) Non-Af Glucose POC Glucose 359 H Calcium Total Bilirubin Direct Bilirubin Neonat Total Bilirubin Neonat Direct Bilirubin Neonat Indirect Bili AST ALT Alkaline Phosphatase Creatine Kinase CK-MB (CK-2) 2.32 Troponin I 1.060 NT-Pro-B Natriuret Pep Total Protein Albumin Chest X-Ray 09/10/19 00:00 IMPRESSION: Cardiogenic pulmonary edema, without pleural effusions. The patient's 3 EKGs done serially shows atrial sensed and ventricular paced rhythm. Hence no nondiagnostic for ischemia. Impression/RECOMMENDATION: 1. Elevated troponin I secondary to type II myocardial infarction due to supply demand mismatch. This is due to the patient's heart failure paced rhythm and ca rdiomyopathy. No definite evidence of non-ST elevation [place]. Hence would recommend not treat this as a non-ST elevation [place]. But to be absolutely sure we will get a technetium pyrophosphate scan to make sure that [place] is not been missed. This has been discussed with the patient and with the attending physician Dr. Carlos. 2. Chest pain: Noncardiac. Patient reassured 3. Acute on chronic systolic heart failure.: Would I have increased the patient's lisinopril to 10 mg p.o. twice daily and also start the patient on Lasix 20 mg IV every 8 hours. 4. Diabetes mellitus type 2: Continue current diabetic regimen medication and serial Accu-Cheks. 5. History of obstructive sleep apnea: Continue CPAP at night with the patient's home settings. 6. Paroxysmal atrial fibrillation: No recurrence in the long time. Will watch out for this. 7. The patient does have multiple CAD risk factors, and has had a mildly abnormal stress test in the past. Hence we will optimize the patient's heart failure medication and schedule the patient for IV Lexiscan Cardiolite stress test, which can be done as an outpatient. 8. Biventricular AICD: No recent firing in a long time. The patient states that recently he had checked and it was functioning well. Medications reviewed. Medication doses adjusted. Medical regimen and management plan discussed with Dr. Carlos. Medical decision making is of high complexity. 20 minutes spent on this patient more than 50% of time spent in direct patient care. Will follow.
[2019-09-10] MEDS: FUROSEMIDE INJ/PF 20 MG/2 ML SDV IV SCH (21:49)
[2019-09-10] MEDS: ATORVASTATIN CALCIUM 20 MG TABLET PO SCH (21:50)
[2019-09-10] MEDS: LISINOPRIL 10 MG TABLET PO SCH (21:50)
[2019-09-10 22:30] LABS: CREATINE KINASE MB 1.76 ng/mL (<4.55)
[2019-09-10 22:32] LABS: TROPONIN I 0.703 ng/mL
--- NOTE | 2019-09-10 22:47 | EKG REPORT ---
SEVERITY:- ABNORMAL ECG - ATRIAL-SENSED VENTRICULAR-PACED RHYTHM : Confirmed by: Scot Florence 10-Sep-2019 22:46:42
--- NOTE | 2019-09-10 22:47 | EKG REPORT ---
SEVERITY:- ABNORMAL ECG - ATRIAL-SENSED VENTRICULAR-PACED RHYTHM : Confirmed by: Scot Florence 10-Sep-2019 22:46:58
--- NOTE | 2019-09-10 22:47 | EKG REPORT ---
SEVERITY:- ABNORMAL ECG - ATRIAL-SENSED VENTRICULAR-PACED COMPLEXES : Confirmed by: Scot Florence 10-Sep-2019 22:46:52
[2019-09-11] MEDS: METFORMIN HCL 500 MG TABLET PO SCH ×5 (04:39→23:44)
[2019-09-11] MEDS: FUROSEMIDE INJ/PF 20 MG/2 ML SDV IV SCH ×3 (05:01→21:49)
[2019-09-11] MEDS: PANTOPRAZOLE SODIUM 40 MG TABLET.DR PO SCH (05:01)
[2019-09-11 05:42] LABS: HEMATOCRIT 43.1 % (37.9-51.0); HEMOGLOBIN 14.5 g/dL (13.5-17.0); MEAN CORPUSCULAR HEMOGLOBIN 29.5 pg (27.0-33.4); MEAN CORPUSCULAR HGB CONC 33.7 g/dL (32.0-36.0); MEAN CORPUSCULAR VOLUME 88 fl (80-97); PLATELET COUNT 145 10^3/uL (150-450); RED BLOOD COUNT 4.93 10^6/uL (4.35-5.55); RED CELL DISTRIBUTION WIDTH 15.4 % (11.5-14.0); WHITE BLOOD COUNT 4.4 10^3/uL (4.0-10.5)
[2019-09-11 05:55] LABS: ALBUMIN 2.8 g/dL (3.5-5.0); ALKALINE PHOSPHATASE 58 U/L (38-126); ANION GAP 8 (5-19); ASPARTATE AMINO TRANSFERASE 18 U/L (17-59); BILIRUBIN,DIRECT 0.1 mg/dL (0.0-0.4); BILIRUBIN,TOTAL 1.1 mg/dL (0.2-1.3); BLOOD UREA NITROGEN 13 mg/dL (7-20); CALCIUM 8.3 mg/dL (8.4-10.2); CARBON DIOXIDE 27 mmol/L (22-30); CHLORIDE 99 mmol/L (98-107); CHOLESTEROL 151.82 mg/dL (0-200); GLUCOSE 145 mg/dL (75-110); POTASSIUM 3.7 mmol/L (3.6-5.0); TOTAL PROTEIN 5.5 g/dL (6.3-8.2); TRIGLYCERIDES 128 mg/dL (<150)
[2019-09-11 06:16] LABS: DIRECT LDL 113 mg/dL (<100)
[2019-09-11] MEDS: INSULIN LISPRO 100 UNIT/ML 3 ML VIAL SUBCUT SCH ×4 (08:53→21:57)
[2019-09-11] MEDS ORDERED: INSULIN GLARGINE HUM REC ANLOG 25 UNIT SUBCUT SCH (10:00)
[2019-09-11] MEDS: INSULIN GLARGINE,HUM.REC.ANLOG 1,000 UNIT/10 ML VIAL SUBCUT SCH (10:31)
[2019-09-11] MEDS: CARVEDILOL 12.5 MG TABLET PO SCH ×2 (10:31→21:50)
[2019-09-11] MEDS: GLIMEPIRIDE 4 MG TABLET PO SCH ×2 (10:31→17:24)
[2019-09-11] MEDS: LISINOPRIL 10 MG TABLET PO SCH ×2 (10:32→21:49)
[2019-09-11] MEDS: DOFETILIDE 500 MCG CAPSULE PO SCH ×2 (10:32→21:50)
[2019-09-11 15:18] LABS: APPEARANCE,URINE CLEAR; BILIRUBIN,URINE NEGATIVE (NEGATIVE); COLOR,URINE YELLOW; GLUCOSE, URINE 50 mg/dL (NEGATIVE); KETONES,URINE 20 mg/dL (NEGATIVE); LEUKOCYTE ESTERASE,URINE NEGATIVE (NEGATIVE); NITRITE,URINE NEGATIVE (NEGATIVE); PROTEIN,URINE NEGATIVE (NEGATIVE); URINE SPECIFIC GRAVITY 1.009; UROBILINOGEN,URINE NEGATIVE mg/dL (<2.0)
--- NOTE | 2019-09-11 17:58 | PDOC PROGRESS REPORT ---
Subjective Progress Note for:: 09/11/19 Subjective:: Patient reported improvement in his leg swelling. No chest pain. Breathing is improving. No fever or chills. No nausea, vomiting, or abdominal pain. Reason For Visit: CHEST PAIN R/O ACS,ACUTE DECOMPENSATION OF CHRONIC Physical Exam Vital Signs: Temp Pulse Resp BP Pulse Ox 97.7 F 89 18 125/81 98 09/11/19 08:02 09/11/19 14:00 09/11/19 08:02 09/11/19 08:02 09/11/19 08:02 Intake & Output 09/10/19 09/11/19 09/12/19 06:59 06:59 06:59 Intake Total 950 480 Balance 950 480 Weight 100.6 kg 96.8 kg General appearance: PRESENT: obese Head exam: PRESENT: atraumatic, normocephalic Eye exam: PRESENT: conjunctiva pink. ABSENT: scleral icterus Ear exam: PRESENT: normal external ear exam Mouth exam: PRESENT: moist Respiratory exam: PRESENT: clear to auscultation asiya, decreased breath sounds - at lung bases Cardiovascular exam: PRESENT: RRR. ABSENT: diastolic murmur, rubs, systolic murmur Vascular exam: ABSENT: pallor GI/Abdominal exam: PRESENT: normal bowel sounds, soft. ABSENT: distended, guarding, mass, organolmegaly, rebound, tenderness Extremities exam: PRESENT: pedal edema - bilateral to below knee levels Musculoskeletal exam: PRESENT: tenderness - left sided anterior chest wall tenderness to palpation persist but comparatively improving. Neurological exam: PRESENT: alert, awake, oriented to person, oriented to place, oriented to time, oriented to situation, CN II-XII grossly intact. ABSENT: motor sensory deficit Psychiatric exam: PRESENT: appropriate affect, normal mood. ABSENT: homicidal ideation, suicidal ideation Skin exam: PRESENT: dry, warm Results Laboratory Results: 09/11/19 04:38 09/11/19 04:38 09/11/19 09/11/19 09/11/19 04:38 04:38 14:55 WBC 4.4 RBC 4.93 Hgb 14.5 Hct 43.1 MCV 88 MCH 29.5 MCHC 33.7 RDW 15.4 H Plt Count 145 L Sodium 134.3 L Potassium 3.7 Chloride 99 Carbon Dioxide 27 Anion Gap 8 BUN 13 Creatinine 0.94 Est GFR ( Amer) > 60 Glucose 145 H Calcium 8.3 L Total Bilirubin 1.1 AST 18 Alkaline Phosphatase 58 Total Protein 5.5 L Albumin 2.8 L Triglycerides 128 Cholesterol 151.82 LDL Cholesterol Direct 113 H VLDL Cholesterol 26.0 HDL Cholesterol 28 L Urine Color YELLOW Urine Appearance CLEAR Urine pH 5.0 Ur Specific [place] 1.009 Urine Protein NEGATIVE Urine Glucose (UA) 50 H Urine Ketones 20 H Urine Blood SMALL H Urine Nitrite NEGATIVE Ur Leukocyte Esterase NEGATIVE Urine WBC (Auto) 1 Urine RBC (Auto) 1 09/10/19 09/10/19 09/10/19 03:56 03:56 03:56 Creatine Kinase 130 CK-MB (CK-2) 1.22 Troponin I 0.064 NT-Pro-B Natriuret Pep 1120 H 09/10/19 09/10/19 09/10/19 05:24 10:32 10:32 Creatine Kinase 128 CK-MB (CK-2) 2.71 Troponin I 0.209 1.540 NT-Pro-B Natriuret Pep 09/10/19 09/10/19 09/10/19 15:42 15:42 21:54 Creatine Kinase 106 97 CK-MB (CK-2) 2.32 Troponin I 1.060 NT-Pro-B Natriuret Pep 09/10/19 21:54 Creatine Kinase CK-MB (CK-2) 1.76 Troponin I 0.703 NT-Pro-B Natriuret Pep Impressions: Chest X-Ray 09/10/19 00:00 IMPRESSION: Cardiogenic pulmonary edema, without pleural effusions. Assessment & Plan - Diagnosis (1) Elevated troponin I level Is this a current diagnosis for this admission?: Yes Plan: Continue current medication management. Follow up on NM scan evaluation findings. (2) Non-cardiac chest pain Is this a current diagnosis for this admission?: Yes Plan: Maintain on current medication management (3) NSTEMI (non-ST elevated myocardial infarction) Is this a current diagnosis for this admission?: Yes (4) Acute exacerbation of CHF (congestive heart failure) Qualifiers: Heart failure type: combined systolic and diastolic Qualified Code(s): I50.43 - Acute on chronic combined systolic (congestive) and diastolic (congestive) heart failure Is this a current diagnosis for this admission?: Yes (5) Chronic combined systolic and diastolic congestive heart failure Is this a current diagnosis for this admission?: Yes (6) Diabetes mellitus type 2 in obese Is this a current diagnosis for this admission?: Yes (7) HTN (hypertension) Qualifiers: Hypertension type: essential hypertension Qualified Code(s): I10 - Es sential (primary) hypertension Is this a current diagnosis for this admission?: Yes (8) HLD (hyperlipidemia) Qualifiers: Hyperlipidemia type: unspecified Qualified Code(s): E78.5 - Hyperlipidemia, unspecified Is this a current diagnosis for this admission?: Yes - Time Time Spent with patient: 25-34 minutes Medications reviewed and adjusted accordingly: Yes Anticipated discharge: Home Within: Other - Inpatient Certification Based on my medical assessment, after consideration of the patient's comorbidities, presenting symptoms, or acuity I expect that the services needed warrant INPATIENT care.: Yes I certify that my determination is in accordance with my understanding of Medicare's requirements for reasonable and necessary INPATIENT services [42 CFR 412.3e].: Yes Medical Necessity: Significant Comorbidiites Make Outpatient Treatment Too Risky, Need Close Monitoring Due to Risk of Patient Decompensation, Need For Continuous Telemetry Monitoring, Risk of Complication if Not Cared For in Hospital, Risk of Diagnosis Which Will Require Inpatient Eval/Care/Monitoring Post Hospital Care: D/C [facility] [place] Documentation - Plan Summary Plan Summary: Continue all current medication management.
--- NOTE | 2019-09-11 19:25 | Progress Note ---
Provider Note Provider Note: CARDIOLOGY PROGRESS NOTE by Dr. Jessica Lechuga on 09/11/2019. OBJECTIVE: The patient denies any further chest pain or discomfort. There is no shortness of breath. There is no PND orthopnea or cough. There is no recurrence of atrial fibrillation. There is no ventricular arrhythmia seen. There is no firing of the AICD. There is no TIA CVA symptoms. His leg edema has improved. PHYSICAL EXAMINATION: The patient is mild to moderately obese. Is well-groomed in no acute distress. Selected Entries 09/11/19 08:02 Temperature 97.7 F Temperature Oral Source Pulse Rate 88 Respiratory 18 Rate Blood Pressure 125/81 Blood Pressure 95 Mean BP Location Right Arm BP Position Supine O2 Sat by Pulse 98 Oximetry Oxygen Delivery Room Air Method HEAD: Is atraumatic normocephalic. EYES: Pupils are equal round regular reactive to light and accommodation. Extraocular movements are normal. There is no conjunctival pallor. There is no scleral icterus. EARS: Tympanic memories are intact. External auditory canals are clear. NOSE: There is no deviated nasal septum. There is no inflammation of these mucous membrane. MOUTH: Mucous membranes of mouth are moist. Tongue is moist. There is no ulcers. There is no bleeding from the gums. THROAT: There is no redness of the oropharynx there is no exudates in the throat. SKIN: There is no skin skin rashes. There is no skin lesions. There is no petechia or ecchymosis. NECK: Is supple. There is mild JVD present. Carotids are equal there is no bruits. There is no lymphadenopathy. There is no goiter. There is no accessory muscle respiration use. Trachea central. LUNGS: Shows a few bibasilar fine rales of CHF. There is no rhonchi or wheezing. HEART: S1-S2 is heard. There is no S3 gallop. There is no S4 gallop. There is systolic murmur left sternal border and the apex there is no rub. ABDOMEN: Is soft. Mildly obese. Nontender. There is no hepatospleno megaly. Bowel sounds well heard. EXTREMITIES: Femorals are well felt. Leg pulses are well felt. There is 1+ bilateral pedal edema. There is no DVT or cellulitis. There is no cyanosis or clubbing. 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 PSYCHIATRIC: The patient judgment and insight are intact. His affect is normal. The technetium pyrophosphate heart scan [infected with scan] is negative for any evidence of myocardial infarction in any segments. Labs- All tests 24 hr 09/10/19 09/10/19 09/10/19 21:43 21:54 21:54 WBC RBC Hgb Hct MCV MCH MCHC RDW Plt Count Sodium Potassium Chloride Carbon Dioxide Anion Gap BUN Creatinine Est GFR ( Amer) Est GFR (MDRD) Non-Af Glucose POC Glucose 149 H Hemoglobin A1c % Calcium Total Bilirubin Direct Bilirubin Neonat Total Bilirubin Neonat Direct Bilirubin Neonat Indirect Bili AST ALT Alkaline Phosphatase Creatine Kinase 97 CK-MB (CK-2) 1.76 Troponin I 0.703 Total Protein Albumin Triglycerides Cholesterol LDL Cholesterol Direct VLDL Cholesterol HDL Cholesterol Urine Color Urine Appearance Urine pH Ur Specific [place] Urine Protein Urine Glucose (UA) Urine Ketones Urine Blood Urine Nitrite Urine Bilirubin Urine Urobilinogen Ur Leukocyte Esterase Urine WBC (Auto) Urine RBC (Auto) U Hyaline Cast (Auto) Urine Mucus (Auto) Urine Ascorbic Acid 09/11/19 09/11/19 09/11/19 04:38 04:38 04:38 WBC 4.4 RBC 4.93 Hgb 14.5 Hct 43.1 MCV 88 MCH 29.5 MCHC 33.7 RDW 15.4 H Plt Count 145 L Sodium 134.3 L Potassium 3.7 Chloride 99 Carbon Dioxide 27 Anion Gap 8 BUN 13 Creatinine 0.94 Est GFR ( Amer) > 60 Est GFR (MDRD) Non-Af > 60 Glucose 145 H POC Glucose Hemoglobin A1c % > 14.0 H Calcium 8.3 L Total Bilirubin 1.1 Direct Bilirubin 0.1 Neonat Total Bilirubin Not Reportable Neonat Direct Bilirubin Not Reportable Neonat Indirect Bili Not Reportable AST 18 ALT 12 Alkaline Phosphatase 58 Creatine Kinase CK-MB (CK-2) Troponin I Total Protein 5.5 L Albumin 2.8 L Triglycerides 128 Cholesterol 151.82 LDL Cholesterol Direct 113 H VLDL Cholesterol 26.0 HDL Cholesterol 28 L Urine Color Urine Appearance Urine pH Ur Specific [place] Urine Protein Urine Glucose (UA) Urine Ketones Urine Blood Urine Nitrite Urine Bilirubin Urine Urobilinogen Ur Leukocyte Esterase Urine WBC (Auto) Urine RBC (Auto) U Hyaline Cast (Auto) Urine Mucus (Auto) Urine Ascorbic Acid 09/11/19 09/11/1909/11/19 08:26 11:45 14:55 WBC RBC Hgb Hct MCV MCH MCHC RDW Plt Count Sodium Potassium Chloride Carbon Dioxide Anion Gap BUN Creatinine Est GFR ( Amer) Est GFR (MDRD) Non-Af Glucose POC Glucose 151 H 202 H Hemoglobin A1c % Calcium Total Bilirubin Direct Bilirubin Neonat Total Bilirubin Neonat Direct Bilirubin Neonat Indirect Bili AST ALT Alkaline Phosphatase Creatine Kinase CK-MB (CK-2) Troponin I Total Protein Albumin Triglycerides Cholesterol LDL Cholesterol Direct VLDL Cholesterol HDL Cholesterol Urine Color YELLOW Urine Appearance CLEAR Urine pH 5.0 Ur Specific [place] 1.009 Urine Protein NEGATIVE Urine Glucose (UA) 50 H Urine Ketones 20 H Urine Blood SMALL H Urine Nitrite NEGATIVE Urine Bilirubin NEGATIVE Urine Urobilinogen NEGATIVE Ur Leukocyte Esterase NEGATIVE Urine WBC (Auto) 1 Urine RBC (Auto) 1 U Hyaline Cast (Auto) 1 Urine Mucus (Auto) OCC Urine Ascorbic Acid NEGATIVE 09/11/19 16:05 WBC RBC Hgb Hct MCV MCH MCHC RDW Plt Count Sodium Potassium Chloride Carbon Dioxide Anion Gap BUN Creatinine Est GFR ( Amer) Est GFR (MDRD) Non-Af Glucose POC Glucose 261 H Hemoglobin A1c % Calcium Total Bilirubin Direct Bilirubin Neonat Total Bilirubin Neonat Direct Bilirubin Neonat Indirect Bili AST ALT Alkaline Phosphatase Creatine Kinase CK-MB (CK-2) Troponin I Total Protein Albumin Triglycerides Cholesterol LDL Cholesterol Direct VLDL Cholesterol HDL Cholesterol Urine Color Urine Appearance Urine pH Ur Specific [place] Urine Protein Urine Glucose (UA) Urine Ketones Urine Blood Urine Nitrite Urine Bilirubin Urine Urobilinogen Ur Leukocyte Esterase Urine WBC (Auto) Urine RBC (Auto) U Hyaline Cast (Auto) Urine Mucus (Auto) Urine Ascorbic Acid Chest X-Ray 09/10/19 00:00 IMPRESSION: Cardiogenic pulmonary edema, without pleural effusions. Impression/RECOMMENDATION: 1. Elevated troponin I secondary to type II myocardial infarction due to supply demand mismatch. This is due to the patient's heart failure paced rhythm and cardiomyopathy. No definite evidence of non-ST elevation [place]. The technetium pyrophosphate heart scan does not show any evidence of myocardial infarction. This has been discussed with the patient and with the attending physician Dr. Carlos. 2. Chest pain: Noncardiac. Patient reassured 3. Acute on chronic systolic heart failure.: Would I have increased the patient's lisinopril to 10 mg p.o. twice daily and also start the patient on Lasix 20 mg IV every 8 hours. The patient is improving. Will check chest x-ray in the morning 4. Diabetes mellitus type 2: Continue current diabetic regimen medication and serial Accu-Cheks. 5. History of obstructive sleep apnea: Continue CPAP at night with the patient's home settings. 6. Paroxysmal atrial fibrillation: No recurrence in the long time. Will watch out for this. 7. The patient does have multiple CAD risk factors, and has had a mildly abnormal stress test in the past. Hence we will optimize the patient's heart failure medication and schedule the patient for IV Lexiscan Cardiolite stress t est, which can be done as an outpatient. 8. Biventricular AICD: No recent firing in a long time. The patient states that recently he had checked and it was functioning well. Medications reviewed. Medication doses adjusted. Medical regimen and management plan discussed with Dr. Carlos. Medical decision making is of high complexity. 20 minutes spent on this patient more than 50% of time spent in direct patient care. Will follow.
[2019-09-11] MEDS: ATORVASTATIN CALCIUM 20 MG TABLET PO SCH (21:49)
[2019-09-12] MEDS: METFORMIN HCL 500 MG TABLET PO SCH ×3 (05:13→18:01)
[2019-09-12] MEDS: PANTOPRAZOLE SODIUM 40 MG TABLET.DR PO SCH (05:13)
[2019-09-12] MEDS: FUROSEMIDE INJ/PF 20 MG/2 ML SDV IV SCH (05:13)
[2019-09-12] MEDS: INSULIN LISPRO 100 UNIT/ML 3 ML VIAL SUBCUT SCH ×4 (07:45→21:21)
[2019-09-12] MEDS: DOFETILIDE 500 MCG CAPSULE PO SCH ×2 (09:28→21:20)
[2019-09-12] MEDS: LISINOPRIL 10 MG TABLET PO SCH ×2 (09:28→21:21)
[2019-09-12] MEDS: GLIMEPIRIDE 4 MG TABLET PO SCH ×2 (09:28→18:01)
[2019-09-12] MEDS: CARVEDILOL 12.5 MG TABLET PO SCH ×2 (09:28→21:20)
[2019-09-12] MEDS: INSULIN GLARGINE,HUM.REC.ANLOG 1,000 UNIT/10 ML VIAL SUBCUT SCH (09:29)
--- NOTE | 2019-09-12 09:51 | RADIOLOGY REPORT (SQ) ---
EXAM DESCRIPTION: CHEST SINGLE VIEW COMPLETED DATE/TIME: 09/11/2019 9:01 pm REASON FOR STUDY: CHF COMPARISON: 09/10/2019 NUMBER OF VIEWS: One view. TECHNIQUE: Single frontal radiographic view of the chest acquired. LIMITATIONS: None. FINDINGS: LUNGS AND PLEURA: No opacities, masses or pneumothorax. No pleural effusion. MEDIASTINUM AND HILAR STRUCTURES: No masses. Contour normal. HEART AND VASCULAR STRUCTURES: Heart enlarged without failure. Normal vasculature. BONES: No acute findings. HARDWARE: Cardiac hardware is unchanged. OTHER: No other significant finding. IMPRESSION: Persistent cardiac enlargement. Improvement in the pulmonary edema. TECHNICAL DOCUMENTATION: JOB ID: [id number] [employer]- All Rights Reserved Reading location - IP/workstation name: [email or web address]
[2019-09-12] MEDS ORDERED: (PENDING PHARMACY ID) (Dulaglutide [Trulicity] 0.75 MG) SUBCUT SCH (10:00)
--- NOTE | 2019-09-12 10:22 | PDOC PROGRESS REPORT ---
Subjective Progress Note for:: 09/12/19 Subjective:: Patient is currently doing much better Patient is denied any chest pain no short of breath Patient seen by Dr. MORALES Reason For Visit: CHEST PAIN R/O ACS,ACUTE DECOMPENSATION OF CHRONIC Physical Exam Vital Signs: Temp Pulse Resp BP Pulse Ox 97.9 F 95 17 131/92 H 98 09/12/19 07:59 09/12/19 07:59 09/12/19 07:59 09/12/19 07:59 09/12/19 07:59 Intake & Output 09/11/19 09/12/19 09/13/19 06:59 06:59 06:59 Intake Total 950 1100 Balance 950 1100 Weight 96.8 kg 95.4 kg General appearance: PRESENT: no acute distress, well-developed, well-nourished Head exam: PRESENT: atraumatic, normocephalic Eye exam: PRESENT: conjunctiva pink, EOMI, PERRLA. ABSENT: scleral icterus Ear exam: PRESENT: normal external ear exam Mouth exam: PRESENT: moist, tongue midline Neck exam: PRESENT: full ROM. ABSENT: carotid bruit, JVD, lymphadenopathy, thyromegaly Respiratory exam: PRESENT: clear to auscultation asiya Cardiovascular exam: PRESENT: RRR. ABSENT: diastolic murmur, rubs, systolic murmur Pulses: PRESENT: normal dorsalis pedis pul, +2 pedal pulses bilateral Vascular exam: PRESENT: normal capillary refill GI/Abdominal exam: PRESENT: normal bowel sounds, soft. ABSENT: distended, guarding, mass, organolmegaly, rebound, tenderness Rectal exam: PRESENT: deferred Musculoskeletal exam: PRESENT: ambulatory Neurological exam: PRESENT: alert, awake, oriented to person, oriented to place, oriented to time, oriented to situation, CN II-XII grossly intact. ABSENT: motor sensory deficit Psychiatric exam: PRESENT: appropriate affect, normal mood. ABSENT: homicidal ideation, suicidal ideation Skin exam: PRESENT: dry, intact, warm. ABSENT: cyanosis, rash Results Laboratory Results: 09/11/19 04:38 09/11/19 04:38 09/11/19 14:55 Urine Color YELLOW Urine Appearance CLEAR Urine pH 5.0 Ur Specific [place] 1.009 Urine Protein NEGATIVE Urine Glucose (UA) 50 H Urine Ketones 20 H Urine Blood SMALL H Urine Nitrite NEGATIVE Ur Leukocyte Esterase NEGATIVE Urine WBC (Auto) 1 Urine RBC (Auto) 1 09/10/19 09/10/19 09/10/19 03:56 03:56 03:56 Creatine Kinase 130 CK-MB (CK-2) 1.22 Troponin I 0.064 NT-Pro-B Natriuret Pep 1120 H 09/10/19 09/10/19 09/10/19 05:24 10:32 10:32 Creatine Kinase 128 CK-MB (CK-2) 2.71 Troponin I 0.209 1.540 NT-Pro-B Natriuret Pep 09/10/19 09/10/19 09/10/19 15:42 15:42 21:54 Creatine Kinase 106 97 CK-MB (CK-2) 2.32 Troponin I 1.060 NT-Pro-B Natriuret Pep 09/10/19 21:54 Creatine Kinase CK-MB (CK-2) 1.76 Troponin I 0.703 NT-Pro-B Natriuret Pep Impressions: Chest X-Ray 09/11/19 00:00 IMPRESSION: Persistent cardiac enlargement. Improvement in the pulmonary edema. Assessment & Plan - Diagnosis (1) Acute exacerbation of CHF (congestive heart failure) Qualifiers: Heart failure type: combined systolic and diastolic Qualified Code(s): I50.43 - Acute on chronic combined systolic (congestive) and diastolic (congestive) heart failure Is this a current diagnosis for this admission?: Yes (2) Chest pain Qualifiers: Chest pain type: precordial pain Qualified Code(s): R07.2 - Precordial pain Is this a current diagnosis for this admission?: Yes (3) Diabetes mellitus type 2 in obese Is this a current diagnosis for this admission?: Yes (4) HTN (hypertension) Qualifiers: Hypertension type: essential hypertension Qualified Code(s): I10 - Essential (primary) hypertension Is this a current diagnosis for this admission?: Yes (5) Cardiomyopathy Is this a current diagnosis for this admission?: Yes - Time Time Spent with patient: 15-24 minutes Level of Care: IMCU Medications reviewed and adjusted accordingly: Yes Anticipated discharge: Home Within: Other - Plan Summary Plan Summary: Patient is currently feeling much better Continues to current medications Adjust the medicines by Dr. MORALES
--- NOTE | 2019-09-12 19:14 | Progress Note ---
Provider Note Provider Note: CARDIOLOGY PROGRESS NOTE by Dr. Jessica Lechuga on 09/12/2019. OBJECTIVE: The patient denies any further chest pain or discomfort. There is no shortness of breath. There is no PND orthopnea. There is no recurrence of atrial fibrillation or flutter. There is no ventricular arrhythmia seen on the monitor. There is no firing of the AICD. His leg edema has resolved. He is actually ambulating without any problems. PHYSICAL EXAMINATION: The patient is mildly obese. In no acute distress. Selected Entries 09/12/19 07:59 Temperature 97.9 F Temperature Oral Source Pulse Rate 95 Respiratory 17 Rate Blood Pressure 131/92 H Blood Pressure 105 Mean BP Location Left Arm BP Position Sitting O2 Sat by Pulse 98 Oximetry Oxygen Delivery Room Air Method HEAD: Is atraumatic normocephalic. EYES: Pupils are equal round regular reactive to light and accommodation. Extraocular movements are normal. There is no conjunctival pallor. There is no scleral icterus. EARS: Tympanic memories are intact. External auditory canals are clear. NOSE: There is no deviated nasal septum. There is no inflammation of these mucous membrane. MOUTH: Mucous membranes of mouth are moist. Tongue is moist. There is no ulcers. There is no bleeding from the gums. THROAT: There is no redness of the oropharynx there is no exudates in the throat. SKIN: There is no skin skin rashes. There is no skin lesions. There is no petechia or ecchymosis. NECK: Is supple. There is mild JVD present. Carotids are equal there is no bruits. There is no lymphadenopathy. There is no goiter. There is no accessory muscle respiration use. Trachea central. LUNGS: Shows a few bibasilar fine rales of CHF. There is no rhonchi or wheezing. HEART: S1-S2 is heard. There is no S3 gallop. There is no S4 gallop. There is systolic murmur left sternal border and the apex there is no rub. ABDOMEN: Is soft. Mildly obese. Nontender. There is no hepatospleno megaly. Bowel sounds well heard. EXTREMITIES: Femorals are well felt. Leg pulses are well felt. There is 1+ bilateral pedal edema. There is no DVT or cellulitis. There is no cyanosis or clubbing. 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 PSYCHIATRIC: The patient judgment and insight are intact. His affect is normal. Labs- All tests 24 hr 09/11/19 09/12/19 09/12/19 21:44 07:30 11:34 POC Glucose 307 H 198 H 209 H 09/12/19 16:01 POC Glucose 214 H Chest X-Ray 09/10/19 00:00 IMPRESSION: Cardiogenic pulmonary edema, without pleural effusions. Chest X-Ray 09/11/19 00:00 IMPRESSION: Persistent cardiac enlargement. Improvement in the pulmonary edema. IMPRESSION/RECOMMENDATION: 1. Elevated troponin I secondary to type II myocardial infarction due to supply demand mismatch. This is due to the patient's heart failure paced rhythm and cardiomyopathy. No definite evidence of non-ST elevation [place]. The technetium pyrophosphate heart scan does not show any evidence of myocardial infarction. This has been discussed with the patient and with the attending physician Dr. Carlos. 2. Chest pain: Noncardiac. Patient reassured 3. Acute on chronic systolic heart failure.: In view of the heart rate being 92 we will increase the patient's Coreg to 25 mill grams p.o. every 12 hours. Continue lisinopril 10 mg. Every 12 hours.. The patient is improving. Will check chest x-ray in the morning. We will stop the patient's IV Lasix and start the patient on Lasix 20 mg p.o. daily. Was also start the patient on the spironolactone. 4. Diabetes mellitus type 2: Continue current diabetic regimen medication and serial Accu-Cheks. 5. History of obstructive sleep apnea: Continue CPAP at night with the patient's home settings. 6. Paroxysmal atrial fibrillation: No recurrence in the long time. Will watch out for this. 7. The patient does have multiple CAD risk factors, and has had a mildly abnormal stress test in the past. Hence we will optimize the patient's heart failure medication and schedule the patient for IV Lexiscan Cardiolite stress test, which can be done as an outpatient. 8. Biventricular AICD: No recent firing in a long time. The patient states that recently he had checked and it was functioning well. Medications reviewed. Medications adjusted. Medical regimen and management plan discussed with attending physician on the case. Medical decision making is of high complexity. 40 minutes spent on this patient more than 50% of time spent in direct patient care. Will follow.
[2019-09-12] MEDS: ATORVASTATIN CALCIUM 20 MG TABLET PO SCH (21:20)
[2019-09-12] MEDS: SPIRONOLACTONE 25 MG TABLET PO SCH (21:20)
[2019-09-13] MEDS: METFORMIN HCL 500 MG TABLET PO SCH ×5 (01:29→23:01)
[2019-09-13] MEDS: PANTOPRAZOLE SODIUM 40 MG TABLET.DR PO SCH (05:35)
[2019-09-13] MEDS: INSULIN LISPRO 100 UNIT/ML 3 ML VIAL SUBCUT SCH ×4 (08:58→22:35)
[2019-09-13] MEDS: SPIRONOLACTONE 25 MG TABLET PO SCH ×2 (09:03→21:36)
[2019-09-13] MEDS: CARVEDILOL 12.5 MG TABLET PO SCH ×2 (09:03→21:31)
[2019-09-13] MEDS: LISINOPRIL 10 MG TABLET PO SCH ×2 (09:04→21:37)
[2019-09-13] MEDS: FUROSEMIDE 20 MG TABLET PO SCH (09:04)
[2019-09-13] MEDS: DOFETILIDE 500 MCG CAPSULE PO SCH ×2 (09:05→21:31)
[2019-09-13] MEDS: GLIMEPIRIDE 4 MG TABLET PO SCH ×2 (09:05→17:18)
[2019-09-13] MEDS: INSULIN GLARGINE,HUM.REC.ANLOG 1,000 UNIT/10 ML VIAL SUBCUT SCH (09:12)
--- NOTE | 2019-09-13 09:24 | PDOC PROGRESS REPORT ---
Subjective Progress Note for:: 09/13/19 Subjective:: Patient is currently doing well Patient's denied any chest pain to than any shortness of the breath Patients have several medicines changed by Dr. MORALES Patient is walking the hallway without any problems Reason For Visit: CHEST PAIN R/O ACS,ACUTE DECOMPENSATION OF CHRONIC Physical Exam Vital Signs: Temp Pulse Resp BP Pulse Ox 98.1 F 87 17 133/89 H 100 09/13/19 07:56 09/13/19 07:56 09/13/19 07:56 09/13/19 07:56 09/13/19 07:56 Intake & Output 09/12/19 09/13/19 09/14/19 06:59 06:59 06:59 Intake Total 1100 1800 Balance 1100 1800 Weight 95.4 kg 95.6 kg General appearance: PRESENT: no acute distress, well-developed, well-nourished Head exam: PRESENT: atraumatic, normocephalic Eye exam: PRESENT: conjunctiva pink, EOMI, PERRLA. ABSENT: scleral icterus Ear exam: PRESENT: normal external ear exam Mouth exam: PRESENT: moist, tongue midline Neck exam: PRESENT: full ROM. ABSENT: carotid bruit, JVD, lymphadenopathy, thyromegaly Respiratory exam: PRESENT: clear to auscultation asiya Cardiovascular exam: PRESENT: RRR. ABSENT: diastolic murmur, rubs, systolic murmur Pulses: PRESENT: normal dorsalis pedis pul, +2 pedal pulses bilateral Vascular exam: PRESENT: normal capillary refill GI/Abdominal exam: PRESENT: normal bowel sounds, soft. ABSENT: distended, guarding, mass, organolmegaly, rebound, tenderness Rectal exam: PRESENT: deferred Musculoskeletal exam: PRESENT: ambulatory Neurological exam: PRESENT: alert, awake, oriented to person, oriented to place, oriented to time, oriented to situation, CN II-XII grossly intact. ABSENT: motor sensory deficit Psychiatric exam: PRESENT: appropriate affect, normal mood. ABSENT: homicidal ideation, suicidal ideation Skin exam: PRESENT: dry, intact, warm. ABSENT: cyanosis, rash Results Laboratory Results: 09/11/19 04:38 09/11/19 04:38 09/10/19 09/10/19 09/10/19 03:56 03:56 03:56 Creatine Kinase 130 CK-MB (CK-2) 1.22 Troponin I 0.064 NT-Pro-B Natriuret Pep 1120 H 09/10/19 09/10/19 09/10/19 05:24 10:32 10:32 Creatine Kinase 128 CK-MB (CK-2) 2.71 Troponin I 0.209 1.540 NT-Pro-B Natriuret Pep 09/10/19 09/10/19 09/10/19 15:42 15:42 21:54 Creatine Kinase 106 97 CK-MB (CK-2) 2.32 Troponin I 1.060 NT-Pro-B Natriuret Pep 09/10/19 21:54 Creatine Kinase CK-MB (CK-2) 1.76 Troponin I 0.703 NT-Pro-B Natriuret Pep Impressions: Chest X-Ray 09/11/19 00:00 IMPRESSION: Persistent cardiac enlargement. Improvement in the pulmonary edema. Assessment & Plan - Diagnosis (1) Acute exacerbation of CHF (congestive heart failure) Qualifiers: Heart failure type: combined systolic and diastolic Qualified Code(s): I50.43 - Acute on chronic combined systolic (congestive) and diastolic (congestive) heart failure Is this a current diagnosis for this admission?: Yes (2) Chest pain Qualifiers: Chest pain type: precordial pain Qualified Code(s): R07.2 - Precordial pain Is this a current diagnosis for this admission?: Yes (3) Diabetes mellitus type 2 in obese Is this a current diagnosis for this admission?: Yes (4) HTN (hypertension) Qualifiers: Hypertension type: essential hypertension Qualified Code(s): I10 - Essential (primary) hypertension Is this a current diagnosis for this admission?: Yes (5) Cardiomyopathy Is this a current diagnosis for this admission?: Yes - Time Time Spent with patient: 25-34 minutes Level of Care: IMCU Medications reviewed and adjusted accordingly: Yes Anticipated discharge: Home Within: within 24 hours - Plan Summary Plan Summary: Continues to current medications Recheck the basic metabolic panel in the morning
--- NOTE | 2019-09-13 20:46 | Progress Note ---
Provider Note Provider Note: CARDIOLOGY PROGRESS NOTE by Dr. Jessica Lechuga on 09/13/2019. SUBJECTIVE: The patient denies any chest pain or discomfort. There is no no shortness of breath. There is no PND orthopnea. His leg edema is resolved. There is no atrial or ventricular arrhythmia seen. There is no recurrence of paroxysmal atrial fibrillation. There is no firing of the AICD. There is no TIA CVA symptoms. Physical EXAMINATION: The patient is mild to moderately obese. In no acute distress. Selected Entries 09/13/19 07:56 Temperature 98.1 F Temperature Oral Source Pulse Rate 87 Respiratory 17 Rate Blood Pressure 133/89 H Blood Pressure 103 Mean BP Location Right Arm BP Position Supine O2 Sat by Pulse 100 Oximetry Oxygen Delivery Room Air Method HEAD: Is atraumatic normocephalic. EYES: Pupils are equal round regular reactive to light and accommodation. Extraocular movements are normal. There is no conjunctival pallor. There is no scleral icterus. EARS: Tympanic memories are intact. External auditory canals are clear. NOSE: There is no deviated nasal septum. There is no inflammation of these mucous membrane. MOUTH: Mucous membranes of mouth are moist. Tongue is moist. There is no ulcers. There is no bleeding from the gums. THROAT: There is no redness of the oropharynx there is no exudates in the throat. SKIN: There is no skin skin rashes. There is no skin lesions. There is no petechia or ecchymosis. NECK: Is supple. There is mild JVD present. Carotids are equal there is no bruits. There is no lymphadenopathy. There is no goiter. There is no accessory muscle respiration use. Trachea central. LUNGS: Shows a few bibasilar fine rales of CHF. There is no rhonchi or wheezing. HEART: S1-S2 is heard. There is no S3 gallop. There is no S4 gallop. There is systolic murmur left sternal border and the apex there is no rub. ABDOMEN: Is soft. Mildly obese. Nontender. There is no hepatospleno megaly. Bowel sounds well heard. EXTREMITIES: Femorals are well felt. Leg pulses are well felt. There is 1+ bilateral pedal edema. There is no DVT or cellulitis. There is no cyanosis or clubbing. NEGOTIATIONS DIRECTOR: The patient is conscious awake alert oriented x3 with no focal deficits. PSYCHIATRIC: The patient judgment and insight are intact. His affect is normal. Labs- All tests 24 hr 09/12/19 09/13/19 09/13/19 21:07 07:59 13:21 POC Glucose 142 H 148 H 174 H 09/13/19 16:27 POC Glucose 189 H Chest X-Ray 09/10/19 00:00 IMPRESSION: Cardiogenic pulmonary edema, without pleural effusions. Chest X-Ray 09/11/19 00:00 IMPRESSION: Persistent cardiac enlargement. Improvement in the pulmonary edema. IMPRESSION/RECOMMENDATION: 1. Elevated troponin I secondary to type II myocardial infarction due to supply demand mismatch. This is due to the patient's heart failure paced rhythm and cardiomyopathy. No definite evidence of non-ST elevation PR. The technetium pyrophosphate heart scan does not show any evidence of myocardial infarction. This has been discussed with the patient and with the attending physician Dr. Carlos. 2. Chest pain: Noncardiac. Patient reassured 3. Acute on chronic systolic heart failure.: In view of the heart rate being 92 we will increase the patient's Coreg to 25 mill grams p.o. every 12 hours. Continue lisinopril 10 mg. Every 12 hours.. The patient is improving. Will check chest x-ray in the morning. We will stop the patient's IV Lasix and start the patient on Lasix 20 mg p.o. daily. Was also start the patient on the spironolactone. 4. Diabetes mellitus type 2: Continue current diabetic regimen medication and serial Accu-Cheks. 5. History of obstructive sleep apnea: Continue CPAP at night with the patient's home settings. 6. Paroxysmal atrial fibrillation: No recurrence in the long time. Will watch out for this. 7. The patient does have multiple CAD risk factors, and has had a mildly abnormal stress test in the past. Hence we will optimize the patient's heart failure medication and schedule the patient for IV Lexiscan Cardiolite stress test, which can be done as an outpatient. 8. Biventricular AICD: No recent firing in a long time. The patient states that recently he had checked and it was functioning well. MEDICATIONS reviewed. Medications regimen and management plan discussed with Dr. Olivarez covering Dr. Carlos. Medical decision making is of moderate complexity. 40 minutes spent on this patient with more than 50% of time spent on direct patient care. Cardiac status is stable. Will sign off. Will follow the patient in the office. Contact numbers given to the patient.
[2019-09-13] MEDS: ATORVASTATIN CALCIUM 20 MG TABLET PO SCH (21:31)
[2019-09-14] MEDS: PANTOPRAZOLE SODIUM 40 MG TABLET.DR PO SCH (05:17)
[2019-09-14] MEDS: METFORMIN HCL 500 MG TABLET PO SCH ×3 (05:17→17:40)
[2019-09-14 05:56] LABS: HEMATOCRIT 42.7 % (37.9-51.0); HEMOGLOBIN 14.2 g/dL (13.5-17.0); MEAN CORPUSCULAR HEMOGLOBIN 28.9 pg (27.0-33.4); MEAN CORPUSCULAR HGB CONC 33.3 g/dL (32.0-36.0); MEAN CORPUSCULAR VOLUME 87 fl (80-97); PLATELET COUNT 150 10^3/uL (150-450); RED BLOOD COUNT 4.92 10^6/uL (4.35-5.55); RED CELL DISTRIBUTION WIDTH 14.9 % (11.5-14.0); WHITE BLOOD COUNT 4.3 10^3/uL (4.0-10.5)
[2019-09-14 06:22] LABS: ANION GAP 7 (5-19); BLOOD UREA NITROGEN 22 mg/dL (7-20); CALCIUM 8.7 mg/dL (8.4-10.2); CARBON DIOXIDE 29 mmol/L (22-30); CHLORIDE 101 mmol/L (98-107); GLUCOSE 127 mg/dL (75-110); POTASSIUM 3.7 mmol/L (3.6-5.0)
[2019-09-14] MEDS: INSULIN LISPRO 100 UNIT/ML 3 ML VIAL SUBCUT SCH ×3 (08:40→16:40)
[2019-09-14 09:55] LABS: APPEARANCE,URINE CLEAR; BILIRUBIN,URINE NEGATIVE (NEGATIVE); COLOR,URINE YELLOW; GLUCOSE, URINE 50 mg/dL (NEGATIVE); KETONES,URINE TRACE mg/dL (NEGATIVE); LEUKOCYTE ESTERASE,URINE NEGATIVE (NEGATIVE); NITRITE,URINE NEGATIVE (NEGATIVE); PROTEIN,URINE 30 mg/dL (NEGATIVE); URINE SPECIFIC GRAVITY 1.028
[2019-09-14] MEDS: CARVEDILOL 12.5 MG TABLET PO SCH (10:45)
[2019-09-14] MEDS: FUROSEMIDE 20 MG TABLET PO SCH (10:45)
[2019-09-14] MEDS: LISINOPRIL 10 MG TABLET PO SCH (10:45)
[2019-09-14] MEDS: GLIMEPIRIDE 4 MG TABLET PO SCH ×2 (10:46→17:40)
[2019-09-14] MEDS: DOFETILIDE 500 MCG CAPSULE PO SCH (10:46)
[2019-09-14] MEDS: SPIRONOLACTONE 25 MG TABLET PO SCH (10:46)
[2019-09-14] MEDS: INSULIN GLARGINE,HUM.REC.ANLOG 1,000 UNIT/10 ML VIAL SUBCUT SCH (10:46)
[2019-09-14 17:56] VITALS: BP 140/93
--- NOTE | 2019-09-14 21:59 | PDOC DISCHARGE SUMMARY ---
Impression - Admit/DC Date/PCP Admission Date/Primary Care Provider: 09/10/19 06:37 GOLDEN ANDREWS Discharge Date: 09/14/19 - Discharge Diagnosis (1) Elevated troponin I level Is this a current diagnosis for this admission?: Yes (2) Non-cardiac chest pain Is this a current diagnosis for this admission?: Yes (3) NSTEMI (non-ST elevated myocardial infarction) Is this a current diagnosis for this admission?: Yes (4) Acute exacerbation of CHF (congestive heart failure) Is this a current diagnosis for this admission?: Yes (5) Chronic combined systolic and diastolic congestive heart failure Is this a current diagnosis for this admission?: Yes (6) Diabetes mellitus type 2 in obese Is this a current diagnosis for this admission?: Yes (7) HTN (hypertension) Is this a current diagnosis for this admission?: Yes (8) HLD (hyperlipidemia) Is this a current diagnosis for this admission?: Yes - Assessment Summary: Patient was admitted for chest pain with concern for cardiac origin due to his extensive cardiac disease morbidities. His serial cardiac enzymes were within acceptable limits. His chest pain was deemed musculoskeletal. His laboratory and clinical examination did revealed features and indication for congestive failure. His medications were adjusted with improvement in his condition. Patient has been symptoms free for the last 24 hours and agreeable to discharge home today. He was seen in consultation by Dr. Chin, sausage stringer, during this hospitalization. He will follow up with Dr. Chin and myself in the office as instructed upon discharge - Additional Information Resuscitation Status: Full Code Discharge Diet: Cardiac, Diabetic Discharge Activity: Activity As Tolerated, Balance Activity w/Rest, Weigh Daily Referrals: PATRICIA BHAGAT MD [ACTIVE STAFF] - GOLDEN ANDREWS MD [Primary Care Provider] - 09/17/19 10:00 am Prescriptions: Spironolactone [Aldactone 25 mg Tablet] 25 mg PO Q12 #60 tablet Carvedilol 25 mg PO Q12 #60 tablet Furosemide [Lasix 20 mg Tablet] 20 mg PO DAILY #30 tablet Lisinopril [Prinivil 10 mg Tablet] 10 mg PO Q12 #60 tablet Home Medications: Atorvastatin Calcium [Lipitor 20 mg Tablet] 20 mg PO QHS 06/01/18 Dofetilide [Tikosyn 500 Mcg Capsule] 500 mcg PO Q12 06/01/18 Apixaban [Eliquis 5 mg Tablet] 5 mg PO BID MDD LAST FILLED Dec09/10/19 Dulaglutide [Trulicity] 0.75 mg SUBCUT SA@1000 09/10/19 Glimepiride [Amaryl 4 mg Tablet] 4 mg PO BID 09/10/19 Insulin Glargine,Hum.rec.anlog [Toudarianeo Solostar] 25 units SUBCUT DAILY 09/10/19 Metformin HCl [Metformin HCl ER] 1,000 mg PO BID 09/10/19 Carvedilol 25 mg PO Q12 #60 tablet 09/14/19 Furosemide [Lasix 20 mg Tablet] 20 mg PO DAILY #30 tablet 09/14/19 Lisinopril [Prinivil 10 mg Tablet] 10 mg PO Q12 #60 tablet 09/14/19 Spironolactone [Aldactone 25 mg Tablet] 25 mg PO Q12 #60 tablet 09/14/19 History of Present Illiness History of Present Illness: JOSEFA MCKEON is a 59 year old male known to my practice who presented to the ED with complain of substernal chest pain since about 10 PM last night. He reported self administration of Aspirin 324mg at onset of his pain. He described pain as achy, nonradiating and associated with shortness of breath. He denied any associated diaphoresis, nausea, vomiting, dizziness or loss of consciousness. Patient reported compliance with his medication but missed some doses of his prescribed Lasix. There has been gradual increase in his leg swelling over last couple of days. He admitted to episodes of PND and orthopnea. His initial ED evaluation was significant for marginal increase in his NT Pro BNP, elevated Troponin I level, and hyperglycemia. He was advised hospitalization for further evaluation and management. His morbidities are as listed below. Hospital Course Hospital Course: Patient was admitted for chest pain with concern for cardiac origin due to his extensive cardiac disease morbidities. His serial cardiac enzymes were within acceptable limits. His chest pain was deemed musculoskeletal. His laboratory and clinical examination did revealed features and indication for congestive failure. His medications were adjusted with improvement in his condition. Patient has been symptoms free for the last 24 hours and agreeable to discharge home today. He was seen in consultation by Dr. Chin, sausage stringer, during this hospitalization. He will follow up with Dr. Chin and myself in the office as instructed upon discharge. Physical Exam Vital Signs: Temp Pulse Resp BP Pulse Ox 98.1 F 82 17 105/72 100 09/14/19 15:38 09/14/19 15:38 09/14/19 11:32 09/14/19 15:38 09/14/19 15:38 Intake & Output 09/13/19 09/14/19 09/15/19 06:59 06:59 06:59 Intake Total 1800 720 360 Balance 1800 720 360 Weight 95.6 kg 94.5 kg General appearance: PRESENT: obese Head exam: PRESENT: atraumatic, normocephalic Eye exam: PRESENT: conjunctiva pink. ABSENT: pallor, sclera icterus Ear exam: PRESENT: normal external ear exam Mouth exam: PRESENT: moist Respiratory exam: PRESENT: clear to auscultation asiya, decreased breath sounds - at lung bases Cardiovascular exam: PRESENT: RRR. ABSENT: diastolic murmur, rubs, systolic murmur GI/Abdominal exam: PRESENT: normal bowel sounds, soft. ABSENT: distended, guarding, mass, organomegaly, rebound, tenderness Extremities exam: PRESENT: pedal edema - bilateral to below knee levels Musculoskeletal exam: PRESENT: Resolved left sided anterior chest wall tenderness. Neurological exam: PRESENT: alert, awake, oriented to person, oriented to place, oriented to time, oriented to situation, CN II-XII grossly intact. ABSENT: motor sensory deficit Psychiatric exam: PRESENT: appropriate affect, normal mood. ABSENT: homicidal ideation, suicidal ideation Skin exam: PRESENT: dry, warm Results Laboratory Results: WBC 4.3 10^3/uL (4.0-10.5) 09/14/19 04:55 RBC 4.92 10^6/uL (4.35-5.55) 09/14/19 04:55 Hgb 14.2 g/dL (13.5-17.0) 09/14/19 04:55 Hct 42.7 % (37.9-51.0) 09/14/19 04:55 MCV 87 fl (80-97) 09/14/19 04:55 MCH 28.9 pg (27.0-33.4) 09/14/19 04:55 MCHC 33.3 g/dL (32.0-36.0) 09/14/19 04:55 RDW 14.9 % (11.5-14.0) H 09/14/19 04:55 Plt Count 150 10^3/uL (150-450) 09/14/19 04:55 Lymph % (Auto) 22.0 % (13-45) 09/10/19 03:56 [place] % (Auto) 13.7 % (3-13) H 09/10/19 03:56 Eos % (Auto) 2.6 % (0-6) 09/10/19 03:56 Baso % (Auto) 1.1 % (0-2) 09/10/19 03:56 Absolute Neuts (auto) 3.6 10^3/uL (1.7-8.2) 09/10/19 03:56 Absolute Lymphs (auto) 1.3 10^3/uL (0.5-4.7) 09/10/19 03:56 Absolute Monos (auto) 0.8 10^3/uL (0.1-1.4) 09/10/19 03:56 Absolute Eos (auto) 0.2 10^3/uL (0.0-0.6) 09/10/19 03:56 Absolute Basos (auto) 0.1 10^3/uL (0.0-0.2) 09/10/19 03:56 Seg Neutrophils % 60.6 % (42-78) 09/10/19 03:56 Sodium 136.8 mmol/L (137-145) L 09/14/19 04:55 Potassium 3.7 mmol/L (3.6-5.0) 09/14/19 04:55 Chloride 101 mmol/L (98-107) 09/14/19 04:55 Carbon Dioxide 29 mmol/L (22-30) 09/14/19 04:55 Anion Gap 7 (5-19) 09/14/19 04:55 BUN 22 mg/dL (7-20) H 09/14/19 04:55 Creatinine 0.99 mg/dL (0.52-1.25) 09/14/19 04:55 Est GFR ( Amer) > 60 (>60) 09/14/19 04:55 Est GFR (MDRD) Non-Af > 60 (>60) 09/14/19 04:55 Glucose 127 mg/dL (75-110) H 09/14/19 04:55 POC Glucose 181 mg/dL (70-110) H 09/14/19 16:17 Hemoglobin A1c % > 14.0 % (4.7-6.0) H 09/11/19 04:38 Calcium 8.7 mg/dL (8.4-10.2) 09/14/19 04:55 Total Bilirubin 1.1 mg/dL (0.2-1.3) 09/11/19 04:38 Direct Bilirubin 0.1 mg/dL (0.0-0.4) 09/11/19 04:38 Neonat Total Bilirubin Not Reportable 09/11/19 04:38 Neonat Direct Bilirubin Not Reportable 09/11/19 04:38 Neonat Indirect Bili Not Reportable 09/11/19 04:38 AST 18 U/L (17-59) 09/11/19 04:38 ALT 12 U/L (<50) 09/11/19 04:38 Alkaline Phosphatase 58 U/L (38-126) 09/11/19 04:38 Creatine Kinase 97 U/L (55-170) 09/10/19 21:54 CK-MB (CK-2) 1.76 ng/mL (<4.55) 09/10/19 21:54 Troponin I 0.703 ng/mL 09/10/19 21:54 NT-Pro-B Natriuret Pep 1120 pg/mL (<125) H 09/10/19 03:56 Total Protein 5.5 g/dL (6.3-8.2) L 09/11/19 04:38 Albumin 2.8 g/dL (3.5-5.0) L 09/11/19 04:38 Triglycerides 128 mg/dL (<150) 09/11/19 04:38 Cholesterol 151.82 mg/dL (0-200) 09/11/19 04:38 LDL Cholesterol Direct 113 mg/dL (<100) H 09/11/19 04:38 VLDL Cholesterol 26.0 mg/dL (10-31) 09/11/19 04:38 HDL Cholesterol 28 mg/dL (>40) L 09/11/19 04:38 Urine Color YELLOW 09/14/19 09:25 Urine Appearance CLEAR 09/14/19 09:25 Urine pH 5.0 (5.0-9.0) 09/14/19 09:25 Ur Specific [place] 1.028 09/14/19 09:25 Urine Protein 30 mg/dL (NEGATIVE) H 09/14/19 09:25 Urine Glucose (UA) 50 mg/dL (NEGATIVE) H 09/14/19 09:25 Urine Ketones TRACE mg/dL (NEGATIVE) H 09/14/19 09:25 Urine Blood MODERATE (NEGATIVE) H 09/14/19 09:25 Urine Nitrite NEGATIVE (NEGATIVE) 09/14/19 09:25 Urine Bilirubin NEGATIVE (NEGATIVE) 09/14/19 09:25 Urine Urobilinogen 2.0 mg/dL (<2.0) H 09/14/19 09:25 Ur Leukocyte Esterase NEGATIVE (NEGATIVE) 09/14/19 09:25 Urine WBC (Auto) 5 /HPF 09/14/19 09:25 Urine RBC (Auto) 18 /HPF 09/14/19 09:25 U Hyaline Cast (Auto) 1 /LPF 09/11/19 14:55 Squamous Epi Cells Auto <1 /HPF 09/14/19 09:25 Urine Mucus (Auto) MANY /LPF 09/14/19 09:25 Urine Ascorbic Acid NEGATIVE (NEGATIVE) 09/14/19 09:25 09/10/19 09/10/19 09/10/19 03:56 03:56 05:24 CK-MB (CK-2) 1.22 Troponin I 0.064 0.209 NT-Pro-B Natriuret Pep 1120 H 09/10/19 09/10/19 09/10/19 10:32 15:42 21:54 CK-MB (CK-2) 2.71 2.32 1.76 Troponin I 1.540 1.060 0.703 NT-Pro-B Natriuret Pep Impressions: Chest X-Ray 09/10/19 00:00 IMPRESSION: Cardiogenic pulmonary edema, without pleural effusions. Chest X-Ray 09/11/19 00:00 IMPRESSION: Persistent cardiac enlargement. Improvement in the pulmonary edema. Plan Health Concerns: Worsening congestive heart failure due to medication and dietary noncompliance.. Plan of Treatment: Adjustment in medication management. Compliance with medication management and dietary compliance. Goals: Improve medication and dietary compliance. Stroke Is this a Stroke Patient?: No Acute Heart Failure - Is this a Heart Failure Patient?: Yes Documentation of LVEF assessment?: Yes LVEF < 40%?: Yes-if yes answer questions a through e a) Discharged on ACEI?: Yes b) Discharges on ARB?: No-document contraindications Reason(s) not discharged on ARB: Other - on ACEI c) Discharged on ARNI?: No-Document Contraindications Reason(s) not discharged on ARNI: ACEI use within the prior 36 hours d) Discharged on evidence-based Beta dariel(carvedilol, sustained release metoprolol succinate, or bisoprolol)?: Yes e) For LVEF <35%, discharged on Aldosterone antagonist?: Yes 3. Anticoagulant therapy for permanect/persistent/paraoxysmal Afib or Aflutter: Yes Follow-up Appointment scheduled within 7 days?: Yes
--- NOTE | 2019-09-16 11:20 | RADIOLOGY REPORT (SQ) ---
HOT TECHNETIUM PYROPHOSPHATE SCAN [INFARCT AVID SCAN] DATE OF PROCEDURE: 09/11/2019. REASON FOR PROCEDURE: To assess acute myocardial infarction in a patient with elevated troponin levels. INTERPRETING PHYSICIAN: Dr. MR Jessica Lechuga . PROCEDURE: The patient was injected with 20 mCi of heart technetium pyrophosphate. After a 2-hour delay images were obtained as per standard protocol. INTERPRETATION: There is no evidence of acute myocardial infarction by this pyrophosphate scan. [facility]
== END 2019-09-14 18:05 | disposition home or self-care (01) | DRG 280 ==
LOC: ER 01:29 → EH 06:37 → 3N 09:32
PROVIDERS: ADMIT Internal Medicine Geriatric Medicine; ATTEND Internal Medicine Geriatric Medicine
DX: I21.A1 Myocardial infarction type 2 (principal); I50.43 Acute on chronic combined systolic (congestive) and diastolic (congestive) heart failure; I42.0 Dilated cardiomyopathy; R07.89 Other chest pain; E66.9 Obesity, unspecified; E78.5 Hyperlipidemia, unspecified; G47.33 Obstructive sleep apnea (adult) (pediatric); E11.9 Type 2 diabetes mellitus without complications; I11.0 Hypertensive heart disease with heart failure; E78.00 Pure hypercholesterolemia, unspecified; Z79.899 Other long term (current) drug therapy; Z79.4 Long term (current) use of insulin; Z91.11 Patient's noncompliance with dietary regimen; Z91.14 Patient's other noncompliance with medication regimen; Z82.49 Family history of ischemic heart disease and other diseases of the circulatory system; Z95.810 Presence of automatic (implantable) cardiac defibrillator
CPT/HCPCS: 36415; 71045; 71046; 78466; 80048; 80053; 80061; 81001; 82550; 82553; 82962; 83036; 83880; 84484; 85025; 85027; 93005; 93010; 96374; 99285; A9538; J1650; J1815; J1940; J3490; Q9969